=== PATIENT | female | born 1975 | race American Indian/Alaskan Native ===

== ENCOUNTER 2016-11-05 09:41 | Emergency (ER) | payer OTHER ==
[2016-11-05 09:43] VITALS: BMI 38.5
[2016-11-05 09:53] VITALS: TEMP 98.2; O2SAT 98
[2016-11-05 10:15] LABS: ADD MANUAL DIFF? NO
[2016-11-05 10:20] LABS: BASO # 0.02 K/mm3 (0.0-2.0); BASO % 0.5 % (0.0-3.0); EOS # 0.1 (0.0-0.7); EOS % 1.4 % (1.5-5.0); GRAN # 2.32 (1.4-6.5); GRAN % 55.6 % (50.0-68.0); HEMATOCRIT 32.4 % (36.0-48.0); LYMPH # 1.5 (1.2-3.4); LYMPH % 35.3 % (22.0-35.0); MEAN CELL VOLUME 86.2 fL (80.0-105.0); MEAN CORPUSCULAR HEMOGLOBIN 28.2 pg (25.0-35.0); MEAN CORPUSCULAR HGB CONC 32.7 g/dl (31.0-37.0); MEAN PLATELET VOLUME 8.6 fl (7.0-11.0); MONO # 0.3 (0.1-0.6); MONO % 7.2 % (1.0-6.0); PLATELET COUNT 327 10^3/uL (120.0-450.0); RED CELL DISTRIBUTION WIDTH 13.5 % (11.5-14.5); WHITE BLOOD COUNT 4.2 10^3/ul (4.5-11.0)
--- NOTE | 2016-11-05 10:23 | ED PDOC ---
Arrival/HPI - General Historian: Patient - History of Present Illness Time/Duration: 4-6 hours Symptom Course: Improving - General Chief Complaint: Chest Pain Time Seen by Provider: 11/05/16 09:43 - History of Present Illness Narrative History of Present Illness (Text): 11/05/16 10:04 41 year old female with past medical history hypertension, GERD, controlled diabetes presents to [facility] ED complaining of substernal chest pain. Patient reports the pain started this morning at 4AM while she was sleeping. The pain is sharp in quality, radiates to her back, worse with deep breaths. Patient took a dose of aspirin which alleviated her chest pain. Patient also complains of shortness of breath when she was having chest pain, but it has resolved since. 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 Patient had an echocardiogram in May 2016 which showed 51% EF and a nuclear stress test in June 2016 which was unremarkable. Patient is a current smoker. She smokes about 5 cigarettes a day. Denies headache, dizziness , fever, chills, abdominal pain, nausea, vomiting, diarrhea, or urinary symptoms. (Ragini Ortiz) Past Medical History - Provider Review Nursing Documentation Reviewed: Yes - Infectious Disease Hx of Infectious Diseases: None - Tetanus Immunization Tetanus Immunization: Unknown - Cardiac Hx Cardiac Disorders: Yes Hx Hypertension: Yes - Pulmonary Hx Respiratory Disorders: Yes (1/2 TO 3 CIG A DAY) Hx Asthma: Yes Hx Bronchitis: Yes Hx Sleep Apnea: Yes - Neurological Hx Neurological Disorder: No - HEENT Hx HEENT Disorder: No - Renal Hx Renal Disorder: No - Endocrine/Metabolic Hx Endocrine Disorders: Yes Hx Diabetes Mellitus Type 2: Yes (diet controlled) - Hematological/Oncological Hx Blood Disorders: Yes (H/O GI BLEED) Hx Anemia: Yes - Integumentary Hx Dermatological Disorder: No - Musculoskeletal/Rheumatological Hx Musculoskeletal Disorders: Yes (RADICULOPATHY) Hx Falls: No Hx Fractures: Yes (ORIF right wrist ) - Gastrointestinal Hx Gastrointestinal Disorders: Yes (gastritis, esophageal polyp, colon polyp, GI bleed) Hx Gastroesophageal Reflux: Yes Other/Comment: GASTRIC SLEEVE - Genitourinary/Gynecological Hx Genitourinary Disorders: Yes (C SECTION,TUBAL LIGATION) - Psychiatric Hx Psychophysiologic Disorder: No Hx Substance Use: No - Past Surgical History Past Surgical History: Non-Contributing - Surgical History Hx Gastric Bypass Surgery: Yes (gastric sleeve 2013) Hx Orthopedic Surgery: Yes (right wrist ORIF ) Other/Comment: Hiatal hernia Sx - Anesthesia Hx Anesthesia: Yes Hx Anesthesia Reactions: No Hx Malignant Hyperthermia: No - Suicidal Assessment Feels Threatened In Home Enviroment: No Family/Social History - Physician Review Nursing Documentation Reviewed: Yes Family/Social History: CAD/WA (father CHF, grandmother [place]) Smoking Status: Current Some Days Smoker Hx Alcohol Use: No Hx Substance Use: No Hx Substance Use Treatment: No Allergies/Home Meds Allergies/Adverse Reactions: Allergies morphine Allergy (Mild, Verified 09/30/16 16:58) RASH shellfish derived Allergy (Mild, Verified 09/30/16 16:58) RASH seafood Allergy (Severe, Uncoded 09/30/16 16:58) URTICARIA dust Allergy (Uncoded 09/30/16 16:58) ITCHING Home Medications: Home Meds Medication Instructions Recorded Confirmed Multivitamin [Multivitamins] 1 cap PO DAILY 09/16/15 11/05/16 Montelukast Sodium [Singulair] 10 mg PO DAILY 08/25/16 11/05/16 Omeprazole [Omeprazole] 40 mg PO DAILY 11/05/16 11/05/16 Review of Systems - Physician Review All systems were reviewed & negative as marked: Yes - Review of Systems Constitutional: Weight Change (intentional weight loss (exercise and diet)). absent: Fatigue, Fevers Eyes: Normal. absent: Vision Changes ENT: Normal. absent: Sore Throat, Rhinorrhea Respiratory: Normal Cardiovascular: Chest Pain. absent: Palpitations, Orthopnea, Syncope Gastrointestinal: Normal. absent: Abdominal Pain, Constipation, Diarrhea, Nausea, Vomiting Musculoskeletal: Normal. absent: Arthralgias, Joint Swelling Skin: Normal. absent: Rash, Pruritis Neurological: Normal. absent: Headache, Dizziness, Speech Changes Endocrine: Normal. absent: Diaphoresis, Polyuria, Polydipsia Hemo/Lymphatic: Normal. absent: Adenopathy, Easy Bleeding Psychiatric: Normal. absent: Anxiety, Depression Physical Exam Vital Signs Reviewed: Yes Temperature: Afebrile Blood Pressure: Normal Pulse: Regular Respiratory Rate: Normal Appearance: Positive for: Well-Appearing, Non-Toxic, Comfortable Pain Distress: Mild Mental Status: Positive for: Alert and Oriented X 3 - Systems Exam Head: Present: Atraumatic, Normocephalic Pupils: Present: PERRL Extroacular Muscles: Present: EOMI Conjunctiva: Present: Normal Mouth: Present: Moist Mucous Membranes Neck: Present: Normal Range of Motion. No: JVD Respiratory/Chest: Present: Clear to Auscultation, Good Air Exchange. No: Respiratory Distress, Accessory Muscle Use, Wheezes Cardiovascular: Present: Regular Rate and Rhythm, Normal S1, S2, Peripheal Pulses Present. No: Murmurs, Tachycardic Abdomen: Present: Normal Bowel Sounds. No: Tenderness, Distention, Peritoneal Signs Upper Extremity: Present: Normal Inspection, NORMAL PULSES, Neurovascularly Intact. No: Cyanosis, Edema, Tenderness Lower Extremity: Present: Normal Inspection, NORMAL PULSES, Neurovascularly Intact. No: Edema, Tenderness Neurological: Present: GCS=15, CN II-XII Intact, Speech Normal Skin: Present: Warm, Dry, Normal Color. No: Rashes Psychiatric: Present: Alert, Oriented x 3, Normal Insight, Normal Concentration Vital Signs Temp Pulse Resp BP Pulse Ox 11/05/16 12:31 61 16 126/85 98 11/05/16 09:52 98.2 F 84 18 139/77 98 11/05/16 09:41 98.2 F 85 16 139/77 20 L Medical Decision Making ED Course and Treatment: Patient Seen With Resident: In agreement with resident note. Patient was seen and evaluated with resident, came up with plan and treatment together. Patient with recent admission last month with cardiology consultation. Chest pain is currently atypical for myocardial infarction. EKG, D-dimer, and Troponin unremarkable. With patient's recent stress test and echocardiogram being unremarkable and combination of atypical history, patient will be discharged with instructions to follow up with PMD. (Joseph Torres) 11/05/16 10:33 -CBC, CMP -EKG -Cardiac ISO -D-Dimer -ASA -CXR DDx: ACS, costochondritis, GERD 41 year old female complains of chest pain. Patient was admitted in September 2016 for similar complaints. All cardiac workups including echocardiogram and nuclear stress test were unremarkable. Patient has ADAMARIS score 2 and HEART score 2. 11/05/16 11:37 Progress note: Patient's chest pain is improving. Troponin and other blood works returned negative. EKG showed no ischemic changes. CXR negative for active diseases. (Ragini Ortiz) - Lab Interpretations Lab Results: 11/05/16 10:15 11/05/16 10:15 Lab Results 11/05/16 10:30: Urine Color Yellow, Urine Appearance Sl cloudy, Urine pH 6.0, Ur Specific [place] >= 1.030, Urine Protein 30 H, Urine Glucose (UA) Negative, Urine Ketones Negative, Urine Blood Large H, Urine Nitrate Negative, Urine Bilirubin Negative, Urine Urobilinogen 1.0 H, Ur Leukocyte Esterase Trace H, Urine RBC 15 - 20, Urine WBC 0 - 2, Ur Epithelial Cells 1 - 3, Urine Bacteria Trace 11/05/16 10:15: WBC 4.2 L, RBC 3.76, Hgb 10.6 L, Hct 32.4 L, MCV 86.2, MCH 28.2 , MCHC 32.7, RDW 13.5, Plt Count 327, MPV 8.6, Gran % 55.6, Lymph % (Auto) 35.3 H, [place] % (Auto) 7.2 H, Eos % (Auto) 1.4 L, Baso % (Auto) 0.5, Gran # 2.32, Lymph # 1.5, [place] # 0.3, Eos # 0.1, Baso # 0.02, D-Dimer, Quantitative 0.24, Sodium 141, Potassium 3.9, Chloride 107, Carbon Dioxide 26, Anion Gap 12, BUN 9 , Creatinine 0.8, Est GFR ( Amer) > 60, Est GFR (Non-Af Amer) > 60, Random Glucose 104, Calcium 8.6, Magnesium 1.9, Total Bilirubin 0.5, AST 15, ALT 29, Alkaline Phosphatase 59, Lactate Dehydrogenase 410, Total Creatine Kinase 119, Troponin I < 0.01, Total Protein 6.8, Albumin 3.7, Globulin 3.2, Albumin/Globulin Ratio 1.2 - RAD Interpretation Radiology Orders: 11/05/16 09:59 CHEST PORTABLE [RAD] Stat - EKG Interpretation EKG Interpretation (Text): 11/05/16 11:38 NSR at 88bpm, no axis deviation, no acute ST changes. Read by me. (Ragini Ortiz) - Medication Orders Current Medication Orders: Discontinued Medications Aspirin (Aspirin Chewable) 162 mg PO STAT STA Stop: 11/05/16 09:59 Last Admin: 11/05/16 10:14 Dose: 162 MG Disposition/Present on Arrival - Present on Arrival Any Indicators Present on Arrival: No History of DVT/PE: No History of Uncontrolled Diabetes: No Urinary Catheter: No History of Decub. Ulcer: No History Surgical Site Infection Following: None - Disposition Have Diagnosis and Disposition been Completed?: Yes Disposition Time: 12:34 Patient Plan: Discharge - Disposition Diagnosis: Chest pain Disposition: HOME/ ROUTINE Patient Problems: Current Active Problems Problem Status Diagnosed Chest pain Acute Condition: STABLE Discharge Instructions (ExitCare): Chest Pain (ED) Prescriptions: Naproxen [Anaprox] 275 mg PO Q6 PRN #20 tab PRN Reason: Pain, Moderate (4-7) Referrals: Nick Jones MD [Primary Care Provider] - Follow up with primary Forms: WORK NOTE
[2016-11-05 10:29] LABS: ALB/GLOB RATIO 1.2 (1.1-1.8); ALKALINE PHOSPHATASE 59 U/L (38-133); ALT/SGPT 29 U/L (7-56); AST/SGOT 15 U/L (15-39); BILIRUBIN,TOTAL 0.5 mg/dL (0.2-1.3); BLOOD UREA NITROGEN 9 mg/dL (7-21); CALCIUM 8.6 mg/dL (8.4-10.5); CARBON DIOXIDE 26 mmol/L (21-33); CHLORIDE 107 mmol/L (98-107); GFR AFRICAN-AMERICAN > 60; GLUCOSE,RANDOM 104 mg/dL (70-110); MAGNESIUM 1.9 mg/dL (1.7-2.2); POTASSIUM 3.9 mmol/L (3.6-5.0); SODIUM 141 mmol/L (132-148); TOTAL PROTEIN 6.8 g/dL (5.8-8.3)
[2016-11-05 10:39] LABS: URINE BILIRUBIN NEGATIVE (NEGATIVE); URINE BLOOD LARGE (NEGATIVE); URINE GLUCOSE (UA) NEGATIVE (NEGATIVE); URINE KETONE NEGATIVE (NEGATIVE); URINE LEUKOCYTE ESTERASE TRACE Leu/uL (NEGATIVE); URINE PROTEIN 30 mg/dL (<30 mg/dL)
[2016-11-05 10:40] LABS: URINE APPEARANCE SL CLOUDY (CLEAR); URINE COLOR YELLOW (YELLOW)
[2016-11-05 10:41] LABS: URINE BACTERIA TRACE (NEG); URINE RBC 15 - 20 /hpf (0-2); URINE WBC 0 - 2 /hpf (0-6)
[2016-11-05 10:42] LABS: TROPONIN I < 0.01 ng/mL
--- NOTE | 2016-11-05 11:22 | RAD ---
HISTORY: chest pain COMPARISON: 09/30/2016 FINDINGS: LUNGS: No active pulmonary disease. PLEURA: No significant pleural effusion identified, no pneumothorax apparent. CARDIOVASCULAR: Normal. OSSEOUS STRUCTURES: No significant abnormalities. VISUALIZED UPPER ABDOMEN: Normal. OTHER FINDINGS: None. IMPRESSION: No active disease. No interval pathology noted
[2016-11-05 12:31] VITALS: BP 126/85; PULSE 61; RESP 16
--- NOTE | 2016-11-05 17:56 | CARD ---
APPROVED REPORT EKG Measurement Heart [id number] <Conclusion> Normal sinus rhythm Normal ECG
== END 2016-11-05 12:49 | disposition home or self-care (01) ==
LOC: ED 09:41
DX: R07.9 Chest pain, unspecified (principal); I10 Essential (primary) hypertension; E11.9 Type 2 diabetes mellitus without complications

== ENCOUNTER 2017-03-29 06:45 | Emergency (ER) | payer OTHER ==
[2017-03-29 06:46] VITALS: BMI 38.5
[2017-03-29 07:29] LABS: BASO # 0.02 K/mm3 (0.0-2.0); BASO % 0.4 % (0.0-3.0); EOS # 0.1 (0.0-0.7); GRAN # 3.11 (1.4-6.5); GRAN % 60.1 % (50.0-68.0); HEMATOCRIT 29.3 % (36.0-48.0); LYMPH # 1.7 (1.2-3.4); LYMPH % 32.9 % (22.0-35.0); MEAN CELL VOLUME 75.1 fl (80.0-105.0); MEAN CORPUSCULAR HEMOGLOBIN 22.8 pg (25.0-35.0); MEAN CORPUSCULAR HGB CONC 30.4 g/dl (31.0-37.0); MEAN PLATELET VOLUME 8.4 fl (7.0-11.0); MONO # 0.3 (0.1-0.6); MONO % 5.6 % (1.0-6.0); RED CELL DISTRIBUTION WIDTH 16.4 % (11.5-14.5); WHITE BLOOD COUNT 5.2 10^3/ul (4.5-11.0)
--- NOTE | 2017-03-29 07:30 | ED PDOC ---
Arrival/HPI - General Historian: Patient EM Caveat: Acuity of Condition - History of Present Illness Time/Duration: Prior to Arrival Symptom Onset: Sudden Symptom Course: Unchanged Quality: Pressure, Tightness Severity Level: 8 Activities at Onset: Sleeping Context: Home - General Chief Complaint: Chest Pain Time Seen by Provider: 03/29/17 06:58 - History of Present Illness Narrative History of Present Illness (Text): Patient is a 41 year old female with a past medical history of GERD, Hiatal hernia, diet controlled DM, Hypertension who [place] [facility] [place] with complaints of bilateral chest wall and sternal pain. Patient states she was sleeping and was woken up by an 8/10 chest pain which started at 4 am this morning on the left side and radiated to her back on the right side; pain still persists. She states the pain is exacerbated when she coughs and has not taken anything to relieve the pain. She also admits to a cough being associated with a bitter taste in her mouth. As per patient, this pain occurs regularly. Patient states she had seen a fire hydrant mechanic Dr. Bruno who wanted to work her up for Takotsubo cardiomyopathy but she has not followed through with the appropriate testing for that yet. Patient states she takes her omeprazole regularly, takes her BP medications as needed, and does not take Aspirin regularly. Patient states she underwent a hiatal hernia repair but, in the past year it has returned, which is around the time of the start of her sternal and chest wall pain symptoms. Denies n/v/d, dizziness, weakness, headache. 03/29/17 07:31 (Harris Epstein) Past Medical History - Provider Review Nursing Documentation Reviewed: Yes - Infectious Disease Hx of Infectious Diseases: None - Tetanus Immunization Tetanus Immunization: Unknown - Cardiac Hx Cardiac Disorders: Yes Hx Hypertension: Yes - Pulmonary Hx Respiratory Disorders: Yes (1/2 TO 3 CIG A DAY) Hx Asthma: Yes Hx Bronchitis: Yes Hx Sleep Apnea: Yes - Neurological Hx Neurological Disorder: No - HEENT Hx HEENT Disorder: No - Renal Hx Renal Disorder: No - Endocrine/Metabolic Hx Endocrine Disorders: Yes Hx Diabetes Mellitus Type 2: Yes (diet controlled) - Hematological/Oncological Hx Blood Disorders: Yes (H/O GI BLEED) Hx Anemia: Yes - Integumentary Hx Dermatological Disorder: No - Musculoskeletal/Rheumatological Hx Musculoskeletal Disorders: Yes (RADICULOPATHY) Hx Falls: No Hx Fractures: Yes (ORIF right wrist ) - Gastrointestinal Hx Gastrointestinal Disorders: Yes (gastritis, esophageal polyp, colon polyp, GI bleed) Hx Gastroesophageal Reflux: Yes Other/Comment: GASTRIC SLEEVE - Genitourinary/Gynecological Hx Genitourinary Disorders: Yes (C SECTION,TUBAL LIGATION) - Psychiatric Hx Psychophysiologic Disorder: No Hx Substance Use: No - Past Surgical History Past Surgical History: Non-Contributing - Surgical History Hx Gastric Bypass Surgery: Yes (gastric sleeve 2013) Hx Orthopedic Surgery: Yes (right wrist ORIF ) Other/Comment: Hiatal hernia Sx - Anesthesia Hx Anesthesia: Yes Hx Anesthesia Reactions: No Hx Malignant Hyperthermia: No - Suicidal Assessment Feels Threatened In Home Enviroment: No Family/Social History - Physician Review Nursing Documentation Reviewed: Yes Family/Social History: Neoplasm/Cancer Smoking Status: Current Some Days Smoker Hx Alcohol Use: No Hx Substance Use: No Hx Substance Use Treatment: No Allergies/Home Meds Allergies/Adverse Reactions: Allergies morphine Allergy (Mild, Verified 09/30/16 16:58) RASH shellfish derived Allergy (Mild, Verified 09/30/16 16:58) RASH seafood Allergy (Severe, Uncoded 09/30/16 16:58) URTICARIA dust Allergy (Uncoded 09/30/16 16:58) ITCHING Home Medications: Home Meds Medication Instructions Recorded Confirmed Multivitamin [Multivitamins] 1 cap PO DAILY 09/16/15 03/29/17 Montelukast Sodium [Singulair] 10 mg PO DAILY 08/25/16 03/29/17 Omeprazole [Omeprazole] 40 mg PO DAILY 11/05/16 03/29/17 Review of Systems - Physician Review All systems were reviewed & negative as marked: Yes - Review of Systems Systems not reviewed;Unavailable: Acuity of Condition Constitutional: Fatigue. absent: Fevers Respiratory: SOB, Cough Cardiovascular: Chest Pain. absent: Palpitations Gastrointestinal: absent: Abdominal Pain, Nausea, Vomiting Skin: absent: Rash, Pruritis Neurological: Headache, Focal Weakness Endocrine: Normal Hemo/Lymphatic: Normal Psychiatric: Depression Physical Exam Vital Signs Reviewed: Yes Temperature: Afebrile Blood Pressure: Normal Pulse: Regular Respiratory Rate: Normal Appearance: Positive for: Well-Appearing, Non-Toxic Pain Distress: None Mental Status: Positive for: Alert and Oriented X 3 - Systems Exam Head: Present: Atraumatic, Normocephalic Extroacular Muscles: Present: EOMI Conjunctiva: Present: Normal Mouth: Present: Moist Mucous Membranes Respiratory/Chest: Present: Clear to Auscultation, Good Air Exchange, Other ( tenderness upon palpation of sternal region, and B/L chest wall ) Cardiovascular: Present: Regular Rate and Rhythm, Murmurs, Normal S1, S2 Abdomen: Present: Tenderness (B/L upper epigastric tenderness). No: Distention , Normal Bowel Sounds Neurological: Present: CN II-XII Intact Skin: Present: Warm, Normal Color Psychiatric: Present: Alert, Oriented x 3 Medical Decision Making Re-evaluation Time: 09:00 (Patient at re-evaluation states she is feeling better , the pain has improved s/p administration of maalox and protonix. Physical exam reveals decrease tenderness upon palpation of sternal region, chest wall, and ) Reassessment Condition: Re-examined - Lab Interpretations I have reviewed the lab results: Yes Interpretation: Abnormal lab values - RAD Interpretation Time Study Analyst: Radiologist - EKG Interpretation Interpreted by ED Physician: Yes Type: 12 lead EKG ED Course and Treatment: Assessment ACS vs. GERD - 41 year old female presenting with atypical chest pain which radiates to the right side of her back - HEART score of 2 - ADAMARIS score 0 Plan - EKG - CXR - Cardiac enzymes - CBC, CMP - D-Dimer - Lipase - Protonix, Maalox - Patients symptoms improved after Maalox and Protonix; discussed with patient to take her omeprazole regularly, prescribed Maalox, and follow up with her Resp Ther for f/u of hiatal hernia. 03/29/17 07:50 (Harris Epstein) 03/29/17 10:03 A 41 year old female presents complaining of chest pain and abdominal pain. In agreement with resident note, which includes further HPI details, except that after physical exam with tenderness to epigastric she points out that yes it's more from the epigastric area and radiates to chest. Patient was seen and evaluated with resident, came up with plan and treatment together. EKG shows NSR at 72 BPM Interpreted by me. Abdominal exam shows epigastric tenderness with mild guarding. No rebound. Treated with Protonix and Maalox. On reevaluation, patient felt much better with her symptoms improved. She will follow up with her primary care doctor and a GI specialist. (Augusto Petit) - Lab Interpretations Lab Results: 03/29/17 07:25 03/29/17 07:25 Lab Results 03/29/17 08:50: D-Dimer, Quantitative < 200 H 03/29/17 08:50: Lipase 86 03/29/17 07:38: PT 11.5, INR 1.06, APTT 28.8 03/29/17 07:25: WBC 5.2 D, RBC 3.90, Hgb 8.9 L, Hct 29.3 L, MCV 75.1 L, MCH 22.8 L, MCHC 30.4 L, RDW 16.4 H, Plt Count 297, MPV 8.4, Gran % 60.1, Lymph % ( Auto) 32.9, [place] % (Auto) 5.6, Eos % (Auto) 1.0 L, Baso % (Auto) 0.4, Gran # 3.11, Lymph # 1.7, [place] # 0.3, Eos # 0.1, Baso # 0.02 03/29/17 07:25: Sodium 140, Potassium 3.9, Chloride 107, Carbon Dioxide 23, Anion Gap 14, BUN 7, Creatinine 0.6, Est GFR ( Amer) > 60, Est GFR (Non- Af Amer) > 60, Random Glucose 126 H, Calcium 8.8, Total Bilirubin 0.4, AST 16, ALT 26, Alkaline Phosphatase 61, Lactate Dehydrogenase 440, Total Creatine Kinase 160, Troponin I < 0.01, Total Protein 6.9, Albumin 3.9, Globulin 3.1, Albumin/Globulin Ratio 1.3 - RAD Interpretation Radiology Orders: 03/29/17 07:21 CXR [CHEST PORTABLE] [RAD] Stat - Medication Orders Current Medication Orders: Discontinued Medications Al Hydrox/Mg Hydrox/Simethicone (Maalox Plus 30 Ml) 30 ml PO DAILY PRN PRN Reason: Indigestion / Heartburn Last Admin: 03/29/17 08:03 Dose: 30 ml Aspirin (Aspirin) 325 mg PO STAT STA Stop: 03/29/17 07:31 Last Admin: 03/29/17 07:34 Dose: 325 mg Aspirin (Aspirin) Confirm Administered Dose 325 mg .ROUTE .STK-MED ONE Stop: 03/29/17 07:35 Last Admin: 03/29/17 07:56 Dose: Pantoprazole Sodium (Protonix Inj) 80 mg IVP STAT STA Stop: 03/29/17 07:48 Last Admin: 03/29/17 08:02 Dose: 80 mg Disposition/Present on Arrival - Present on Arrival Any Indicators Present on Arrival: No History of DVT/PE: No History of Uncontrolled Diabetes: No Urinary Catheter: No History of Decub. Ulcer: No History Surgical Site Infection Following: None - Disposition Have Diagnosis and Disposition been Completed?: Yes Disposition Time: :23 Patient Plan: Discharge - Disposition Diagnosis: Gastroesophageal reflux disease Disposition: HOME/ ROUTINE Condition: IMPROVED Discharge Instructions (ExitCare): Gastroesophageal Reflux Disease (ED) Additional Instructions: Mrs. Guerrero thank you for letting us take care of you today. You were treated for gastroesophageal reflux disease. The emergency medical care you received today was directed at your acute symptoms. If you were prescribed any medication , please fill it and take as directed. It may take several days for your symptoms to resolve. Return to the Emergency Department if your symptoms worsen , do not improve, or if you have any other problems. Please contact your doctor or call one of the physicians/clinics you have been referred to that are listed on the Patient Visit Information form that is included in your discharge packet. Bring any paperwork you were given at discharge with you along with any medications you are taking to your follow up visit. Our treatment cannot replace ongoing medical care by a primary care provider (PCP) outside of the emergency department. Dr. Kenia Todd [address] [place] [address] [address] [place] [address] Prescriptions: Aluminum Hydroxide/Magnesium [Maalox Plus 30 ml] 30 ml PO DAILY #30 [facility] [place] Referrals: Nick Jones MD [Primary Care Provider] - Follow up with primary Kenia Todd MD [Medical Doctor] - Follow up with primary Forms: [place] (Uzbek)
[2017-03-29 07:43] LABS: ALB/GLOB RATIO 1.3 (1.1-1.8); ALKALINE PHOSPHATASE 61 U/L (38-126); ALT/SGPT 26 U/L (7-56); AST/SGOT 16 U/L (14-36); BILIRUBIN,TOTAL 0.4 mg/dL (0.2-1.3); BLOOD UREA NITROGEN 7 mg/dL (7-21); CALCIUM 8.8 mg/dL (8.4-10.5); CARBON DIOXIDE 23 mmol/L (21-33); CHLORIDE 107 mmol/L (98-107); GFR AFRICAN-AMERICAN > 60; GLUCOSE,RANDOM 126 mg/dL (70-110); POTASSIUM 3.9 mmol/L (3.6-5.0); SODIUM 140 mmol/L (132-148); TOTAL PROTEIN 6.9 g/dL (5.8-8.3)
[2017-03-29 07:51] LABS: INR 1.06 (0.93-1.08); PARTIAL THROMBOPLASTIN TIME 28.8 Seconds (23.7-30.8)
[2017-03-29] MEDS ORDERED: Alum-Mag Hydrox-Simethicone Susp (30 mL) PO PRN (07:55)
[2017-03-29 08:00] LABS: TROPONIN I < 0.01 ng/mL
--- NOTE | 2017-03-29 09:03 | RAD ---
HISTORY: chest pain COMPARISON: 11/05/2016 FINDINGS: LUNGS: No active pulmonary disease. PLEURA: No significant pleural effusion identified, no pneumothorax apparent. CARDIOVASCULAR: Normal. OSSEOUS STRUCTURES: No significant abnormalities. VISUALIZED UPPER ABDOMEN: Normal. OTHER FINDINGS: None. IMPRESSION: No active disease.
[2017-03-29 09:14] VITALS: TEMP 98
[2017-03-29 09:40] VITALS: BP 121/75; PULSE 75; RESP 20; O2SAT 99
--- NOTE | 2017-03-29 18:11 | CARD ---
APPROVED REPORT EKG Measurement Heart [id number] <Conclusion> Unusual P axis, possible ectopic atrial rhythm Abnormal ECG
== END 2017-03-29 10:22 | disposition home or self-care (01) ==
LOC: ED 06:45
DX: K21.9 Gastro-esophageal reflux disease without esophagitis (principal); I10 Essential (primary) hypertension; E11.9 Type 2 diabetes mellitus without complications; F17.210 Nicotine dependence, cigarettes, uncomplicated
CPT/HCPCS: 71010; 80053; 82550; 83615; 83690; 84484; 85025; 85378; 85610; 85730; 93005; 96374; 99285; C9113

== ENCOUNTER 2017-04-08 00:13 | Observation (INO) | payer OTHER ==
[2017-04-08 00:14] VITALS: BMI 38.5
--- NOTE | 2017-04-08 01:21 | ED PDOC ---
Arrival/HPI <Ananth Hollingsworth - Last Filed: 04/08/17 04:59> <Terry Crockett - Last Filed: 04/08/17 05:05> - General Chief Complaint: Respiratory Distress Time Seen by Provider: 04/08/17 00:23 - History of Present Illness Narrative History of Present Illness (Text): 04/08/17 01:00 41 F presents with complaints of sob of 2 hours duration. Patient states that she is having difficulty taking a deep breath. Pt was recently admitted for anemia on 03/29/17, when her Hb was 8.9. Pt denies any other symptoms including a cough, f/ch, and cp. Pt further denies dizziness and braden. Pt states that the only other time she has felt like this was 2 years ago when she was diagnosed with vertigo. Pt denies wheezing, denies any URI symptoms, and denies any sick contacts. Pt denies n/v/d and any other symptoms. Denies history of asthma, copd, lung ca. Admits to smoking 4-5 cigarettes daily. (Terry Crockett) Past Medical History - Provider Review Nursing Documentation Reviewed: Yes - Infectious Disease Hx of Infectious Diseases: None - Tetanus Immunization Tetanus Immunization: Unknown - Reproductive Menopause: No - Cardiac Hx Cardiac Disorders: Yes Hx Hypertension: Yes - Pulmonary Hx Respiratory Disorders: Yes (1/2 TO 3 CIG A DAY) Hx Asthma: Yes Hx Bronchitis: Yes Hx Sleep Apnea: Yes - Neurological Hx Neurological Disorder: No - HEENT Hx HEENT Disorder: No - Renal Hx Renal Disorder: No - Endocrine/Metabolic Hx Endocrine Disorders: Yes Hx Diabetes Mellitus Type 2: Yes (diet controlled) - Hematological/Oncological Hx Blood Disorders: Yes (H/O GI BLEED) Hx Anemia: Yes - Integumentary Hx Dermatological Disorder: No - Musculoskeletal/Rheumatological Hx Musculoskeletal Disorders: Yes (RADICULOPATHY) Hx Falls: No Hx Fractures: Yes (ORIF right wrist ) - Gastrointestinal Hx Gastrointestinal Disorders: Yes (gastritis, esophageal polyp, colon polyp, GI bleed) Hx Gastroesophageal Reflux: Yes Other/Comment: GASTRIC SLEEVE - Genitourinary/Gynecological Hx Genitourinary Disorders: Yes (C SECTION,TUBAL LIGATION) - Psychiatric Hx Psychophysiologic Disorder: No Hx Substance Use: No - Past Surgical History Past Surgical History: Non-Contributing - Surgical History Hx Gastric Bypass Surgery: Yes (gastric sleeve 2013) Hx Orthopedic Surgery: Yes (right wrist ORIF ) Other/Comment: Hiatal hernia Sx - Anesthesia Hx Anesthesia: Yes Hx Anesthesia Reactions: No Hx Malignant Hyperthermia: No - Suicidal Assessment Feels Threatened In Home Enviroment: No <Terry Crockett - Last Filed: 04/08/17 05:05> Family/Social History - Physician Review Nursing Documentation Reviewed: Yes Family/Social History: No Known Family HX Smoking Status: Current Some Days Smoker Hx Alcohol Use: No Hx Substance Use: No Hx Substance Use Treatment: No <Terry Crockett - Last Filed: 04/08/17 05:05> Allergies/Home Meds <Ananth Hollingsworth - Last Filed: 04/08/17 04:59> <Terry Crockett - Last Filed: 04/08/17 05:05> Allergies/Adverse Reactions: Allergies morphine Allergy (Mild, Verified 09/30/16 16:58) RASH shellfish derived Allergy (Mild, Verified 09/30/16 16:58) RASH seafood Allergy (Severe, Uncoded 09/30/16 16:58) URTICARIA dust Allergy (Uncoded 09/30/16 16:58) ITCHING Home Medications: Home Meds Medication Instructions Recorded Confirmed Multivitamin [Multivitamins] 1 cap PO DAILY 09/16/15 03/29/17 Montelukast Sodium [Singulair] 10 mg PO DAILY 08/25/16 03/29/17 Omeprazole [Omeprazole] 40 mg PO DAILY 11/05/16 03/29/17 Review of Systems - Physician Review All systems were reviewed & negative as marked: Yes - Review of Systems Constitutional: Normal. absent: Fatigue, Weight Change, Fevers Eyes: Normal. absent: Vision Changes, Photophobia, Eye Pain ENT: Normal. absent: Hearing Changes, Tinnitus, TMJ Pain Respiratory: SOB (see hpi) Cardiovascular: Normal. absent: Chest Pain, Palpitations, Edema Gastrointestinal: Normal. absent: Abdominal Pain, Constipation, Diarrhea, Nausea, Vomiting Genitourinary Female: Normal. absent: Dysuria, Frequency Musculoskeletal: Normal. absent: Arthralgias, Back Pain, Neck Pain Skin: Normal. absent: Rash, Pruritis, Skin Lesions Neurological: Normal. absent: Headache, Dizziness, Focal Weakness Endocrine: Normal. absent: Diaphoresis, Polyuria, Polydipsia Hemo/Lymphatic: Normal. absent: Adenopathy, Easy Bleeding, Easy Bruising Psychiatric: Normal. absent: Anxiety, Depression, Suicidal Ideation <Terry Crockett - Last Filed: 04/08/17 05:05> Physical Exam Vital Signs Reviewed: Yes Temperature: Afebrile Blood Pressure: Normal Pulse: Regular Respiratory Rate: Normal Appearance: Positive for: Well-Appearing, Non-Toxic, Comfortable Pain Distress: None Mental Status: Positive for: Alert and Oriented X 3 - Systems Exam Head: Present: Atraumatic, Normocephalic. No: Tenderness, Contusion, Swelling Pupils: Present: PERRL. No: Sluggish, Non-Reactive, Pinpoint Extroacular Muscles: Present: EOMI. No: Gaze Palsy, Entrapment Conjunctiva: Present: Normal. No: Injected, Icteric Ears: Present: Normal, NORMAL TM, Normal Canal. No: Erythema, TM Bulging Mouth: Present: Moist Mucous Membranes. No: Dry, Drooling, Trismus Pharnyx: Present: Normal. No: ERYTHEMA, EXUDATE, TONSILS ENLARGED Nose (External): Present: Atraumatic. No: Abrasion, Contusion, Laceration Nose (Internal): Present: Normal Inspection. No: Engorged, Edematous, Boggy Neck: Present: Normal Range of Motion. No: Meningeal Signs, MIDLINE TENDERNESS , Paraspinal Tenderness Respiratory/Chest: Present: Clear to Auscultation, Good Air Exchange. No: Respiratory Distress, Accessory Muscle Use, Wheezes, Decreased Breath Sounds, Rales, Retracting, Rhonchi, Tachypneic Cardiovascular: Present: Regular Rate and Rhythm, Normal S1, S2. No: Murmurs, Tachycardic, Rub Abdomen: Present: Normal Bowel Sounds. No: Tenderness, Distention, Peritoneal Signs, Rebound, McBurney's Point Tender Rectal: Present: Gross Blood, Normal Rectal Tone. No: Rectal Tenderness, Fissures, Nodule/Mass/Lesions Back: Present: Normal Inspection. No: CVA Tenderness, Midline Tenderness, Paraspinal Tenderness Upper Extremity: Present: Normal Inspection, Normal ROM, NORMAL PULSES. No: Cyanosis, Edema, Tenderness Lower Extremity: Present: Normal Inspection, NORMAL PULSES, Normal ROM. No: Edema, CALF TENDERNESS, Cyanosis Neurological: Present: GCS=15, CN II-XII Intact, Speech Normal, Motor Func Grossly Intact, Normal Sensory Function, Normal Cerebellar Funct, Norm Deep Tendon Reflexes Skin: Present: Warm, Dry, Normal Color. No: Rashes Psychiatric: Present: Alert, Oriented x 3, Normal Insight, Normal Concentration , Normal Affect, Normal Mood. No: Agitated, Depressed Mood, Suicidal Ideation, Homicidal Ideation <Terry Crockett - Last Filed: 04/08/17 05:05> Vital Signs Temp Pulse Resp BP Pulse Ox 04/08/17 04:38 60 18 100 04/08/17 00:23 93 H 20 144/84 100 04/08/17 00:15 99.2 F 86 20 142/84 100 Medical Decision Making <Ananth Hollingsworth - Last Filed: 04/08/17 04:59> <Terry Crockett - Last Filed: 04/08/17 05:05> ED Course and Treatment: Impression: Pt seen and evaluated with biomedical service engineer. Pt, whose past medical history includes hypertension, diabetes, GERD, gastric sleeve, and hiatal hernia, presented complaining of shortness of breath. Aware and agree with HPI, clinical findings, plan, and management. Plan: -- EKG -- Chest X-ray -- Labs, blood cultures -- Urinalysis, urine cultures -- Reassess and disposition 04/08/17 04:[address] Steven, biomedical service engineer chief telephone operator, made aware of admission. (Ananth Hollingsworth) Assessed 04/08/17 01:23 Impression: 41 F with subjective sob Plan - CXR, Tropes, EKG - CMP, CBC, Blood Cx - UA, U Cx - Reassess Reassessed 04/08/17 03:00 - CXR negative for acute disease; EKG shows NSR - CMP, CBC show anemia and leukopenia - UA shows - Tropes negative Reassessed 04/08/17 04:52 - FOBT Positive for brb - Case d/w Dr. Tse, accepts admission to hospitalist service - Case d/w Dr. Dent, biomedical service engineer (Terry Crockett) - Lab Interpretations Lab Results: 04/08/17 03:00 04/08/17 03:00 Lab Results 04/08/17 03:00: Sodium 139, Potassium 3.5 L, Chloride 106, Carbon Dioxide 25, Anion Gap 12, BUN 8, Creatinine 0.6, Est GFR ( Amer) > 60, Est GFR (Non- Af Amer) > 60, Random Glucose 99, Calcium 8.6, Total Bilirubin 0.2, AST 23, ALT 21, Alkaline Phosphatase 63, Total Protein 6.5, Albumin 3.7, Globulin 2.9, Albumin/Globulin Ratio 1.3 04/08/17 03:00: WBC 4.1 L D, RBC 3.59, Hgb 8.3 L, Hct 27.0 L, MCV 75.2 L, MCH 23.1 L, MCHC 30.7 L, RDW 17.0 H, Plt Count 348, MPV 8.5, Gran % 48.4 L, Lymph % (Auto) 44.2 H, Crenshaw % (Auto) 5.3, Eos % (Auto) 1.9, Baso % (Auto) 0.2, Gran # 1.99, Lymph # 1.8, Crenshaw # 0.2, Eos # 0.1, Baso # 0.01 04/08/17 00:26: POC Glucose (mg/dL) 123 H - RAD Interpretation Radiology Orders: 04/08/17 00:58 CHEST PORTABLE [RAD] Stat - Medication Orders Current Medication Orders: Potassium Chloride (Potassium Chloride 20 Meq/100 Ml) 20 meq in 100 mls @ 50 mls/hr IVPB ONCE ONE Stop: 04/08/17 05:47 - PA / BULK MAIL CLERK / Resident Statement PEYTON has reviewed & agrees with the documentation as recorded. PEYTON has examined the patient and agrees with the treatment plan. <Ananth Hollingsworth - Last Filed: 04/08/17 04:59> Disposition/Present on Arrival <Ananth Hollingsworth - Last Filed: 04/08/17 04:59> - Present on Arrival Any Indicators Present on Arrival: No History of DVT/PE: No History of Uncontrolled Diabetes: No Urinary Catheter: No History of Decub. Ulcer: No History Surgical Site Infection Following: None - Disposition Have Diagnosis and Disposition been Completed?: Yes Disposition Time: 04:46 Patient Plan: Admission <Terry Crockett - Last Filed: 04/08/17 05:05> - Disposition Diagnosis: Shortness of breath, Anemia Disposition: HOSPITALIZED Patient Problems: Current Active Problems Problem Status Onset Shortness of breath Acute Anemia Chronic Condition: FAIR Referrals: Trevor Jones MD [Primary Care Provider] - Follow up with primary Forms: Powerset (Bengali)
[2017-04-08 03:13] LABS: BASO # 0.01 K/mm3 (0.0-2.0); BASO % 0.2 % (0.0-3.0); EOS # 0.1 (0.0-0.7); EOS % 1.9 % (1.5-5.0); GRAN # 1.99 (1.4-6.5); GRAN % 48.4 % (50.0-68.0); LYMPH # 1.8 (1.2-3.4); LYMPH % 44.2 % (22.0-35.0); MEAN CELL VOLUME 75.2 fl (80.0-105.0); MEAN CORPUSCULAR HEMOGLOBIN 23.1 pg (25.0-35.0); MEAN CORPUSCULAR HGB CONC 30.7 g/dl (31.0-37.0); MEAN PLATELET VOLUME 8.5 fl (7.0-11.0); MONO # 0.2 (0.1-0.6); MONO % 5.3 % (1.0-6.0); WHITE BLOOD COUNT 4.1 10^3/ul (4.5-11.0)
[2017-04-08 03:19] LABS: ALB/GLOB RATIO 1.3 (1.1-1.8); ALKALINE PHOSPHATASE 63 U/L (38-126); ALT/SGPT 21 U/L (7-56); AST/SGOT 23 U/L (14-36); BILIRUBIN,TOTAL 0.2 mg/dL (0.2-1.3); BLOOD UREA NITROGEN 8 mg/dL (7-21); CALCIUM 8.6 mg/dL (8.4-10.5); CARBON DIOXIDE 25 mmol/L (21-33); CHLORIDE 106 mmol/L (98-107); GFR AFRICAN-AMERICAN > 60; GLUCOSE,RANDOM 99 mg/dL (70-110); POTASSIUM 3.5 mmol/L (3.6-5.0); SODIUM 139 mmol/L (132-148); TOTAL PROTEIN 6.5 g/dL (5.8-8.3)
[2017-04-08 05:40] LABS: PH,URINE 6.5 (4.7-8.0); URINE BILIRUBIN NEGATIVE (NEGATIVE); URINE BLOOD LARGE (NEGATIVE); URINE GLUCOSE (UA) NEGATIVE (NEGATIVE); URINE KETONE NEGATIVE (NEGATIVE); URINE LEUKOCYTE ESTERASE SMALL Leu/uL (NEGATIVE); URINE PROTEIN 30 mg/dL (<30 mg/dL)
[2017-04-08 05:46] LABS: URINE APPEARANCE SL CLOUDY (CLEAR); URINE COLOR YELLOW (YELLOW)
[2017-04-08 06:00] LABS: URINE BACTERIA OCC (NEG); URINE EPITHELIAL CELLS 0 - 2 /hpf (0-5); URINE RBC TNTC /hpf (0-2)
--- NOTE | 2017-04-08 06:05 | CP.PCM.HP ---
<DentIsaakNicola - Last Filed: 04/08/17 06:38> History of Present Illness - History of Present Illness History of Present Illness: 41 yo AA female with PMH of HTN, Diabetes, Gastritis, and asthma presents with 1 day duration of SOB which began at 9pm while the patient was driving her car. She said she felt pressure on her chest, faced tightened up and had difficulty breathing so she opened up the windows to get more air. She states the pressure radiated to her left arm and there was numbness and tingling in her left hand with the entire episode lasting an hour. She states she was sweating, has nausea and dizziness but denies any palpitations, nausea, vomiting, LOC, fever, sore throat, or any other complaints. PMH: HTN, Diabetes, Gastritis, and asthma, PSH: Gastric Sleeve, Hiatal hernia repair Allergies: Zofran, Morphine Family Hx: father had esophageal cancer Medications: Metformin, Metoprolol Social: 4-5 cigarettes a day sometimes, denies alcohol or illicit drug use Present on Admission - Present on Admission Any Indicators Present on Admission: No Review of Systems - Constitutional Constitutional: absent: Chills, Fever, Headache, Night Sweats - EENT Eyes: absent: Change in Vision Ears: absent: Decreased Hearing Nose/Mouth/Throat: absent: Nasal Congestion, Nasal Discharge, Sore Throat - Cardiovascular Cardiovascular: Chest Pain, Chest Pain at Rest, Diaphoresis, Dyspnea. absent: Paroxysmal Nocturnal Dyspnea, Rapid Heart Rate Additional comments: Chest Pressure - Respiratory Respiratory: Dyspnea - Gastrointestinal Gastrointestinal: Abdominal Pain, Melena. absent: Hematemesis, Vomiting - Genitourinary Genitourinary: absent: Difficulty Urinating, Dysuria - Musculoskeletal Musculoskeletal: Numbness, Tingling Additional comments: numbness and tingling in hands during the chest pressure - Neurological Neurological: Dizziness. absent: Tingling Past Patient History - Infectious Disease Hx of Infectious Diseases: None - Tetanus Immunizations Tetanus Immunization: Unknown - Past Medical History & Family History Past Medical History?: Yes - Past Social History Smoking Status: Current Some Days Smoker - CARDIAC Hx Cardiac Disorders: Yes Hx Hypertension: Yes - PULMONARY Hx Respiratory Disorders: Yes (1/2 TO 3 CIG A DAY) Hx Asthma: Yes Hx Bronchitis: Yes Hx Sleep Apnea: Yes - NEUROLOGICAL Hx Neurological Disorder: No - HEENT Hx HEENT Problems: No - RENAL Hx Chronic Kidney Disease: No - ENDOCRINE/METABOLIC Hx Endocrine Disorders: Yes Hx Diabetes Mellitus Type 2: Yes (diet controlled) - HEMATOLOGICAL/ONCOLOGICAL Hx Blood Disorders: Yes (H/O GI BLEED) Hx Anemia: Yes - INTEGUMENTARY Hx Dermatological Problems: No - MUSCULOSKELETAL/RHEUMATOLOGICAL Hx Musculoskeletal Disorders: Yes (RADICULOPATHY) Hx Falls: No Hx Fractures: Yes (ORIF right wrist ) - GASTROINTESTINAL Hx Gastrointestinal Disorders: Yes (gastritis, esophageal polyp, colon polyp, GI bleed) Hx Gastroesophageal Reflux: Yes Other/Comment: GASTRIC SLEEVE - GENITOURINARY/GYNECOLOGICAL Hx Genitourinary Disorders: Yes (C SECTION,TUBAL LIGATION) - PSYCHIATRIC Hx Psychophysiologic Disorder: No Hx Substance Use: No - SURGICAL HISTORY Hx Gastric Bypass Surgery: Yes (gastric sleeve 2013) Hx Orthopedic Surgery: Yes (right wrist ORIF ) Other/Comment: Hiatal hernia Sx - ANESTHESIA Hx Anesthesia: Yes Hx Anesthesia Reactions: No Hx Malignant Hyperthermia: No Meds Allergies/Adverse Reactions: Allergies Allergy/AdvReac Type Severity Reaction Status Date / Time morphine Allergy Mild RASH Verified 09/30/16 16:58 shellfish derived Allergy Mild RASH Verified 09/30/16 16:58 seafood Allergy Severe URTICARIA Uncoded 09/30/16 16:58 dust Allergy ITCHING Uncoded 09/30/16 16:58 Physical Exam - Constitutional Appears: No Acute Distress - Head Exam Head Exam: ATRAUMATIC, NORMAL INSPECTION, NORMOCEPHALIC - Eye Exam Eye Exam: Normal appearance - Respiratory Exam Respiratory Exam: Clear to Auscultation Bilateral, NORMAL BREATHING PATTERN - Cardiovascular Exam Cardiovascular Exam: REGULAR RHYTHM, +S1, +S2 - GI/Abdominal Exam GI & Abdominal Exam: Tenderness Additional comments: Epigastric Tenderness - Rectal Exam Additional comments: BRBPR - Back Exam Back exam: absent: CVA tenderness (L), CVA tenderness (R) - Neurological Exam Neurological exam: Alert, Oriented x3 Results - Vital Signs Recent Vital Signs: Last Vital Signs Temp 99.2 F 04/08/17 00:15 Pulse 60 04/08/17 04:38 Resp 18 04/08/17 04:38 BP 144/84 04/08/17 00:23 Pulse Ox 100 04/08/17 04:38 - Labs Result Diagrams: 04/08/17 03:00 04/08/17 03:00 Assessment & Plan - Assessment and Plan (Free Text) Assessment: 41 yo AA female with PMH of HTN, Diabetes, Gastritis, and asthma presents with 1 day duration of SOB which began at 9pm while the patient was driving her car. She is being worked up for chest pain to rule out ACS. She is also being worked up for a GI bleed due to BRBPR during rectal exam. Plan: 1. Chest Pain- Rule out ACS - EKG obtained- normal sinus rhythm, no acute ST changes, pending official review - Serial troponins ordered - hold aspirin due to GI bleed - Hold b-vanesa due to low pressures - Atorvastatin started - Lipid Panel ordered 2. Abdominal pain with GI Bleed - Bright red per rectum on rectal exam - Hgb 8.3 continue to monitor - Serial CBC ordered - Patient made NPO - NS@150 - GI consulted - Protonix started - CT abdomen/pelvis with IV and PO Contrast ordered 3. Hypokalemia - K was 3.5 - K repleted - continue to monitor 4. DM - A1C level ordered - hold oral hypoglycemics - started on sliding scale lispro with accucheck ACHS 5. DVT Prophylaxis - SCD - Avoid AC in setting of suspected GI bleed Patient seen discussed and reviewed with Dr. Tse <Luis Tse - Last Filed: 04/08/17 07:09> Results - Vital Signs Recent Vital Signs: Last Vital Signs Temp 99.2 F 04/08/17 00:15 Pulse 60 04/08/17 04:38 Resp 18 04/08/17 04:38 BP 144/84 04/08/17 00:23 Pulse Ox 100 04/08/17 04:38 - Labs Result Diagrams: 04/08/17 03:00 04/08/17 03:00 Attending/Attestation - Attestation I have personally seen and examined this patient.: Yes I have fully participated in the care of the patient.: Yes I have reviewed all pertinent clinical information: Yes Notes (Text): 04/08/17 07:07 I agree with the above mentioned note and exam by Dr. Dent with the addition/ exception of the followin41 y/o female with Htn, DM, Asthma who presents with shortness of breath and chest tightness. Found to be more anemic than previously; no dynamic EKG changes. Possible underlying CAD made worse by anemia; also found to have BRBPR on rectal exam and does offer complaints of occasional melanotic stools. Last dark tarry stool was 3-4 days prior; GI consulted; serial h/h to be done; will also rule out ACS by serial cardiac enzymes.
[2017-04-08] MEDS: Sodium Chloride 0.9% 1,000 ML IV SCH ×2 (06:33→12:18)
[2017-04-08 07:37] LABS: EOS # 0.1 (0.0-0.7); GRAN # 1.85 (1.4-6.5); GRAN % 53.2 % (50.0-68.0); HEMATOCRIT 26.3 % (36.0-48.0); LYMPH # 1.3 (1.2-3.4); LYMPH % 37.6 % (22.0-35.0); MEAN CELL VOLUME 75.4 fl (80.0-105.0); MEAN CORPUSCULAR HEMOGLOBIN 22.6 pg (25.0-35.0); MEAN PLATELET VOLUME 8.1 fl (7.0-11.0); MONO # 0.3 (0.1-0.6); MONO % 7.2 % (1.0-6.0); WHITE BLOOD COUNT 3.5 10^3/ul (4.5-11.0)
[2017-04-08 07:55] LABS: TROPONIN I < 0.01 ng/mL
--- NOTE | 2017-04-08 08:00 | CP.PCM.CON ---
History of Present Illness - History of Present Illness History of Present Illness: GI Consult Note for Dr. Santacruz 41 y/o F with PMH of HTN, DM, Gastritis, and asthma presents for a 2 week history of shortness of breath. Patient states she felt chest discomfort and pressure while she was driving. Pt did admit to discomfort in the substernal area that radiated to his left arm. Pt states over this week she has developed chronic fatigue and weakness. Pt also mentions that she has had intermittent black tarry stools for the last year. She states she has bowel movements infrequently, about every 3-4 days. Patient does not use any laxatives or stool softening agents. Patient has no history of any NSAID use or peptobismol use. She also denies hematemesis, nausea, vomiting, diarrhea. Patient had an endoscopy last year due to melanotic stools. Endoscopy showed gastritis and duodenitis, along with a hiatal hernia. PMH: HTN, Diabetes, Gastritis, and asthma, PSH: Gastric Sleeve, Hiatal hernia repair FMH: father had esophageal cancer Social Hx: 1/4 ppd of cigarettes, denies alcohol or illicit drug use Medications: Reviewed, as per chart. Allergies: Zofran (Hives), Morphine Review of Systems - Review of Systems Review of Systems: 12 point ROS as per HPI, otherwise negative Past Patient History - Infectious Disease Hx of Infectious Diseases: None - Tetanus Immunizations Tetanus Immunization: Unknown - Past Medical History & Family History Past Medical History?: Yes - Past Social History Smoking Status: Current Some Days Smoker - CARDIAC Hx Cardiac Disorders: Yes Hx Hypertension: Yes - PULMONARY Hx Respiratory Disorders: Yes (1/2 TO 3 CIG A DAY) Hx Asthma: Yes Hx Bronchitis: Yes Hx Sleep Apnea: Yes - NEUROLOGICAL Hx Neurological Disorder: No - HEENT Hx HEENT Problems: No - RENAL Hx Chronic Kidney Disease: No - ENDOCRINE/METABOLIC Hx Endocrine Disorders: Yes Hx Diabetes Mellitus Type 2: Yes (diet controlled) - HEMATOLOGICAL/ONCOLOGICAL Hx Blood Disorders: Yes (H/O GI BLEED) Hx Anemia: Yes - INTEGUMENTARY Hx Dermatological Problems: No - MUSCULOSKELETAL/RHEUMATOLOGICAL Hx Musculoskeletal Disorders: Yes (RADICULOPATHY) Hx Falls: No Hx Fractures: Yes (ORIF right wrist ) - GASTROINTESTINAL Hx Gastrointestinal Disorders: Yes (gastritis, esophageal polyp, colon polyp, GI bleed) Hx Gastroesophageal Reflux: Yes Other/Comment: GASTRIC SLEEVE - GENITOURINARY/GYNECOLOGICAL Hx Genitourinary Disorders: Yes (C SECTION,TUBAL LIGATION) - PSYCHIATRIC Hx Psychophysiologic Disorder: No Hx Substance Use: No - SURGICAL HISTORY Hx Gastric Bypass Surgery: Yes (gastric sleeve 2013) Hx Orthopedic Surgery: Yes (right wrist ORIF ) Other/Comment: Hiatal hernia Sx - ANESTHESIA Hx Anesthesia: Yes Hx Anesthesia Reactions: No Hx Malignant Hyperthermia: No Meds Allergies/Adverse Reactions: Allergies Allergy/AdvReac Type Severity Reaction Status Date / Time morphine Allergy Mild RASH Verified 09/30/16 16:58 shellfish derived Allergy Mild RASH Verified 09/30/16 16:58 ondansetron Allergy RASH Verified 04/08/17 09:47 [From Zofran (as hydrochloride)] seafood Allergy Severe URTICARIA Uncoded 09/30/16 16:58 dust Allergy ITCHING Uncoded 09/30/16 16:58 - Medications Medications: Current Medications Atorvastatin Calcium (Lipitor) 40 mg PO DAILY COUNTS INCLUDE 234 BEDS AT THE [facility] Sodium Chloride (Sodium Chloride 0.9%) 1,000 mls @ 150 mls/hr IV .Q6H40M COUNTS INCLUDE 234 BEDS AT THE [facility] Last Admin: 04/08/17 06:33 Dose: 150 mls/hr Insulin Human Lispro (Humalog Low) 0 units SC ACHS COUNTS INCLUDE 234 BEDS AT THE [facility] PRN Reason: Protocol Pantoprazole Sodium (Protonix Inj) 40 mg IVP DAILY COUNTS INCLUDE 234 BEDS AT THE [facility] Physical Exam - Constitutional Appears: Non-toxic, No Acute Distress - Head Exam Head Exam: ATRAUMATIC, NORMAL INSPECTION, NORMOCEPHALIC - ENT Exam ENT Exam: Mucous Membranes Moist, Normal Exam - Respiratory Exam Respiratory Exam: Clear to Auscultation Bilateral, NORMAL BREATHING PATTERN. absent: Rales, Rhonchi, Wheezes - Cardiovascular Exam Cardiovascular Exam: RRR, +S1, +S2 - GI/Abdominal Exam GI & Abdominal Exam: Normal Bowel Sounds, Soft, Tenderness (Mild umbilical ) - Rectal Exam Additional comments: Normal tone, no hemorrhoids noted. No stool or blood. - Extremities Exam Extremities exam: Negative for: calf tenderness, pedal edema - Neurological Exam Neurological exam: Alert, CN II-XII Intact, Oriented x3 - Psychiatric Exam Psychiatric exam: Normal Affect, Normal Mood - Skin Skin Exam: Intact, Normal Color, Warm Results - Vital Signs Recent Vital Signs: Last Vital Signs Temp 99.2 F 04/08/17 00:15 Pulse 60 09/20/17 04:38 Resp 18 04/08/17 04:38 BP 144/84 04/08/17 00:23 Pulse Ox 100 04/08/17 04:38 - Labs Result Diagrams: 04/08/17 07:15 04/08/17 03:00 Labs: Laboratory Results - last 24 hr 04/08/17 07:15 WBC 3.5 L RBC 3.49 L Hgb 7.9 L Hct 26.3 L MCV 75.4 L MCH 22.6 L MCHC 30.0 L RDW 17.0 H Plt Count 305 MPV 8.1 Gran % 53.2 Lymph % (Auto) 37.6 H Edwards % (Auto) 7.2 H Eos % (Auto) 2.0 Baso % (Auto) 0.0 Gran # 1.85 Lymph # 1.3 Edwards # 0.3 Eos # 0.1 Baso # 0.00 Assessment & Plan - Assessment and Plan (Free Text) Plan: 41 y/o F with PMH of HTN, DM, Gastritis, and asthma presents with symptomatic anemia likely secondary to esophageal ulcer. Patient underwent EGD this morning which showed an esophageal ulcer, hiatal hernia, esophagitis, gastritis, and duodenitis. Patient will be treated to Protonix 40 mg daily. Continue medical management as per primary team. Patient is clear from GI perspective. Will sign off at this time. Plan: Protonix 40 mg daily Do not eat 3 hours before going to sleep Elevate head of bed 30 degrees when sleeping Avoid gastric irritating foods such as chocolate and mint Antiemetics for nausea Follow up with GI doctor within 2 months Continue medical management as per primary team Justice, PGY-2
[2017-04-08 08:04] LABS: CHOLESTEROL 123 mg/dL (130-200)
[2017-04-08 08:29] LABS: IRON 18 ug/dL (45-180)
[2017-04-08] MEDS: Insulin Lispro (humaLOG) LOW Coverage SC SCH ×4 (08:39→22:39)
[2017-04-08] MEDS ORDERED: Lactated Ringer's 1,000 ML IV SCH (08:45)
[2017-04-08] MEDS ORDERED: Propofol 10 mg/ml Inj (20 ML) ONE (09:23)
[2017-04-08] MEDS ORDERED: Albuterol HFA 90 mcg/actuation (8 g) IH PRN (11:46)
[2017-04-08] MEDS ORDERED: Albuterol 0.083% Inhal Sol (2.5 mg/3 mL) UD IH PRN (12:11)
[2017-04-08 13:14] LABS: BASO # 0.01 K/mm3 (0.0-2.0); BASO % 0.3 % (0.0-3.0); EOS # 0.1 (0.0-0.7); EOS % 1.7 % (1.5-5.0); GRAN # 1.11 (1.4-6.5); GRAN % 38.9 % (50.0-68.0); HEMATOCRIT 26.3 % (36.0-48.0); LYMPH # 1.5 (1.2-3.4); LYMPH % 52.1 % (22.0-35.0); MEAN CELL VOLUME 75.6 fl (80.0-105.0); MEAN CORPUSCULAR HEMOGLOBIN 22.7 pg (25.0-35.0); MEAN PLATELET VOLUME 7.8 fl (7.0-11.0); MONO # 0.2 (0.1-0.6); RED CELL DISTRIBUTION WIDTH 16.8 % (11.5-14.5)
[2017-04-08 13:16] LABS: WHITE BLOOD COUNT 2.9 10^3/ul (4.5-11.0)
--- NOTE | 2017-04-08 13:19 | RAD ---
HISTORY: sob COMPARISON: March 29 2017 FINDINGS: LUNGS: No active pulmonary disease. PLEURA: No significant pleural effusion identified, no pneumothorax apparent. CARDIOVASCULAR: Normal. OSSEOUS STRUCTURES: No significant abnormalities. VISUALIZED UPPER ABDOMEN: Normal. OTHER FINDINGS: None. IMPRESSION: No active disease. No interval pathology appreciated
[2017-04-08 21:57] LABS: BASO # 0.01 K/mm3 (0.0-2.0); BASO % 0.2 % (0.0-3.0); EOS # 0.1 (0.0-0.7); EOS % 1.2 % (1.5-5.0); GRAN # 3.86 (1.4-6.5); GRAN % 66.3 % (50.0-68.0); HEMATOCRIT 28.2 % (36.0-48.0); LYMPH # 1.5 (1.2-3.4); LYMPH % 26.5 % (22.0-35.0); MEAN CELL VOLUME 77.3 fl (80.0-105.0); MEAN CORPUSCULAR HEMOGLOBIN 23.6 pg (25.0-35.0); MEAN CORPUSCULAR HGB CONC 30.5 g/dl (31.0-37.0); MEAN PLATELET VOLUME 8.1 fl (7.0-11.0); MONO # 0.3 (0.1-0.6); MONO % 5.8 % (1.0-6.0); RED CELL DISTRIBUTION WIDTH 17.5 % (11.5-14.5); WHITE BLOOD COUNT 5.8 10^3/ul (4.5-11.0)
--- NOTE | 2017-04-08 23:17 | CARD ---
APPROVED REPORT EKG Measurement Heart [id number] <Conclusion> Unusual P axis, possible ectopic atrial rhythm Abnormal ECG
[2017-04-09] MEDS: Insulin Lispro (humaLOG) LOW Coverage SC SCH ×4 (08:09→21:52)
[2017-04-09] MEDS: Alum-Mag Hydrox-Simethicone Susp (30 mL) PO SCH (09:29)
[2017-04-09] MEDS: Pantoprazole 40 mg EC Tab PO SCH (09:29)
[2017-04-09] MEDS: Multivitamin Therapeutic Tab PO SCH (09:29)
[2017-04-09 11:19] LABS: BASO # 0.01 K/mm3 (0.0-2.0); BASO % 0.2 % (0.0-3.0); EOS # 0.1 (0.0-0.7); GRAN # 2.38 (1.4-6.5); GRAN % 54.2 % (50.0-68.0); HEMATOCRIT 30.5 % (36.0-48.0); LYMPH # 1.6 (1.2-3.4); LYMPH % 36.6 % (22.0-35.0); MEAN CELL VOLUME 77.2 fl (80.0-105.0); MEAN CORPUSCULAR HEMOGLOBIN 23.5 pg (25.0-35.0); MEAN CORPUSCULAR HGB CONC 30.5 g/dl (31.0-37.0); MEAN PLATELET VOLUME 8.4 fl (7.0-11.0); MONO # 0.3 (0.1-0.6); RED CELL DISTRIBUTION WIDTH 17.1 % (11.5-14.5); WHITE BLOOD COUNT 4.4 10^3/ul (4.5-11.0)
[2017-04-09 11:27] LABS: ALB/GLOB RATIO 1.1 (1.1-1.8); ALKALINE PHOSPHATASE 52 U/L (38-126); ALT/SGPT 16 U/L (7-56); AST/SGOT 14 U/L (14-36); BILIRUBIN,TOTAL 0.5 mg/dL (0.2-1.3); BLOOD UREA NITROGEN 6 mg/dL (7-21); CALCIUM 8.3 mg/dL (8.4-10.5); CARBON DIOXIDE 25 mmol/L (21-33); CHLORIDE 109 mmol/L (98-107); GFR AFRICAN-AMERICAN > 60; GLUCOSE,RANDOM 97 mg/dL (70-110); SODIUM 139 mmol/L (132-148)
[2017-04-09] MEDS ORDERED: HYDROmorphone 1 mg/ml ISec IVP STA (12:08)
[2017-04-09 12:09] LABS: BASO # 0.01 K/mm3 (0.0-2.0); BASO % 0.2 % (0.0-3.0); EOS # 0.1 (0.0-0.7); EOS % 1.8 % (1.5-5.0); GRAN # 2.29 (1.4-6.5); GRAN % 52.1 % (50.0-68.0); HEMATOCRIT 30.9 % (36.0-48.0); LYMPH # 1.7 (1.2-3.4); LYMPH % 38.2 % (22.0-35.0); MEAN CELL VOLUME 77.1 fl (80.0-105.0); MEAN CORPUSCULAR HEMOGLOBIN 23.4 pg (25.0-35.0); MEAN CORPUSCULAR HGB CONC 30.4 g/dl (31.0-37.0); MEAN PLATELET VOLUME 8.4 fl (7.0-11.0); MONO # 0.3 (0.1-0.6); MONO % 7.7 % (1.0-6.0); RED CELL DISTRIBUTION WIDTH 17.2 % (11.5-14.5); WHITE BLOOD COUNT 4.4 10^3/ul (4.5-11.0)
[2017-04-09 12:18] LABS: ALB/GLOB RATIO 1.3 (1.1-1.8); ALKALINE PHOSPHATASE 59 U/L (38-126); ALT/SGPT 21 U/L (7-56); AST/SGOT 15 U/L (14-36); BILIRUBIN,TOTAL 0.6 mg/dL (0.2-1.3); BLOOD UREA NITROGEN 6 mg/dL (7-21); CALCIUM 8.5 mg/dL (8.4-10.5); CARBON DIOXIDE 24 mmol/L (21-33); CHLORIDE 108 mmol/L (98-107); GFR AFRICAN-AMERICAN > 60; GLUCOSE,RANDOM 92 mg/dL (70-110); POTASSIUM 4.1 mmol/L (3.6-5.0); SODIUM 140 mmol/L (132-148); TOTAL PROTEIN 6.4 g/dL (5.8-8.3)
[2017-04-09 12:31] LABS: TROPONIN I < 0.01 ng/mL
[2017-04-09] MEDS ORDERED: DiphenhydrAMINE 50 mg/ml Inj IVP STA (12:38)
--- NOTE | 2017-04-09 13:27 | RAD ---
PROCEDURE: CHEST RADIOGRAPH, 1 VIEW HISTORY: chest pain COMPARISON: 04/08/2017 portable chest. FINDINGS: LUNGS: Clear. PLEURA: No pneumothorax or pleural fluid seen. CARDIOVASCULAR: Normal. OSSEOUS STRUCTURES: No significant abnormalities. VISUALIZED UPPER ABDOMEN: Normal. OTHER FINDINGS: None. IMPRESSION: No significant interval change or acute cardiopulmonary disease appreciated.
--- NOTE | 2017-04-09 16:52 | CP.PCM.PN ---
<JacquiElan - Last Filed: 04/09/17 17:08> Subjective - Date & Time of Evaluation Date of Evaluation: 04/09/17 Time of Evaluation: 06:58 - Subjective Subjective: This patient was seen and examined at bedside. The patient reports feeling better after her blood transfusion yesterday. The patient reports being able to walk to the nurses station without any difficulty. The patient denies any chest pain, shortness of breath, nausea, vomiting, changes in vision, sore throat, abdominal pain or any other complaints. Objective - Vital Signs/Intake and Output Vital Signs (last 24 hours): Temp Pulse Resp BP Pulse Ox 98.5 F 55 L 18 128/78 99 04/09/17 11:30 04/09/17 12:34 04/09/17 11:30 04/09/17 12:34 04/09/17 11:30 Intake and Output: 04/09/17 04/09/17 06:59 18:59 Intake Total 1165 480 Balance 1165 480 - Medications Medications: Current Medications Al Hydrox/Mg Hydrox/Simethicone (Maalox Plus 30 Ml) 30 ml PO DAILY [facility] Last Admin: 04/09/17 09:29 Dose: 30 ml Albuterol Sulfate (Albuterol 0.083% Inhal Gabbie (2.5 Mg/3 Ml) Ud) 2.5 mg IH [id number] PRN PRN Reason: Cough and congestion Atorvastatin Calcium (Lipitor) 40 mg PO DAILY [facility] Last Admin: 04/09/17 09:29 Dose: 40 mg Ferrous Sulfate (Feosol) 324 mg PO TID [facility] Last Admin: 04/09/17 13:43 Dose: 324 mg Insulin Human Lispro (Humalog Low) 0 units SC ACHS [facility] PRN Reason: Protocol Last Admin: 04/09/17 16:30 Dose: Not Given Metoprolol Tartrate (Lopressor) 12.5 mg PO BID [facility] Last Admin: 04/09/17 09:25 Dose: Not Given Montelukast Sodium (Singulair) 10 mg PO DAILY [facility] Last Admin: 04/09/17 09:29 Dose: 10 mg Multivitamins (Thera Tab) 1 tab PO DAILY [facility] Last Admin: 04/09/17 09:29 Dose: 1 tab Pantoprazole Sodium (Protonix Ec Tab) 40 mg PO DAILY [facility] Last Admin: 04/09/17 09:29 Dose: 40 mg - Labs Labs: 04/09/17 12:00 04/09/17 12:00 - Head Exam Head Exam: ATRAUMATIC, NORMAL INSPECTION, NORMOCEPHALIC - Eye Exam Eye Exam: EOMI, Normal appearance, PERRL Pupil Exam: NORMAL ACCOMODATION, PERRL. absent: Irregular - ENT Exam ENT Exam: Mucous Membranes Moist - Neck Exam Neck Exam: Normal Inspection - Respiratory Exam Respiratory Exam: Clear to Ausculation Bilateral, NORMAL BREATHING PATTERN. absent: Respiratory Distress - Cardiovascular Exam Cardiovascular Exam: REGULAR RHYTHM, RRR, +S1, +S2. absent: Gallop, Rubs - GI/Abdominal Exam GI & Abdominal Exam: Soft, Normal Bowel Sounds. absent: Rigid, Tenderness - Extremities Exam Extremities Exam: Normal Inspection - Back Exam Back Exam: NORMAL INSPECTION. absent: paraspinal tenderness - Neurological Exam Neurological Exam: Alert, Awake, Oriented x3 - Psychiatric Exam Psychiatric exam: Normal Affect, Normal Mood - Skin Skin Exam: Dry, Intact Assessment and Plan - Assessment and Plan (Free Text) Assessment: 41 yo AA female with PMH of HTN, Diabetes, Gastritis, and asthma presents with 1 day duration of SOB which began at 9pm while the patient was driving her car. She is being worked up for chest pain to rule out ACS. She is also being worked up for a GI bleed due to BRBPR during rectal exam. Plan: 1.. Chest Pain- Rule out ACS - EKG obtained- normal sinus rhythm, no acute ST changes. - Serial troponins ordered - hold aspirin due to GI bleed - Hold b-vanesa due to low pressures - Continue Atorvastatin -Chest pain started this afternoon. D-dimer ordered was elevated. CT angio of Chest ordered. Will f/u with results. 2. Abdominal pain with GI Bleed - Bright red per rectum on rectal exam - Hgb 8.6 s/p 1 unit of PRBC. - Serial CBC ordered - GI consult recs appreciated. - Protonix started 3. Hypokalemia - K was 4.1 today. - K repleted - Will continue to closely monitor with serial Cmp's. 4. DM - Blood glucose 115. - continue sliding scale lispro. -Contine accuchecks. 5. DVT Prophylaxis - SCD GI ppx -continue Protonix <Barbi DEVI,Leo - Last Filed: 04/10/17 15:11> Objective - Vital Signs/Intake and Output Vital Signs (last 24 hours): Temp Pulse Resp BP Pulse Ox 98.1 F 50 L 20 98/58 L 100 04/10/17 06:00 04/10/17 06:00 04/10/17 06:00 04/10/17 10:10 04/10/17 06:00 Intake and Output: 04/10/17 04/10/17 06:59 18:59 Intake Total 900 Balance 900 - Medications Medications: Current Medications Al Hydrox/Mg Hydrox/Simethicone (Maalox Plus 30 Ml) 30 ml PO DAILY [facility] Last Admin: 04/10/17 10:09 Dose: 30 ml Albuterol Sulfate (Albuterol 0.083% Inhal Gabbie (2.5 Mg/3 Ml) Ud) 2.5 mg IH [id number] PRN PRN Reason: Cough and congestion Atorvastatin Calcium (Lipitor) 40 mg PO DAILY [facility] Last Admin: 04/10/17 10:09 Dose: 40 mg Ferrous Sulfate (Feosol) 324 mg PO TID [facility] Last Admin: 04/10/17 10:09 Dose: 324 mg Insulin Human Lispro (Humalog Low) 0 units SC ACHS [facility] PRN Reason: Protocol Last Admin: 04/10/17 11:52 Dose: Not Given Metoprolol Tartrate (Lopressor) 12.5 mg PO BID [facility] Last Admin: 04/10/17 10:10 Dose: Not Given Montelukast Sodium (Singulair) 10 mg PO DAILY [facility] Last Admin: 04/10/17 10:09 Dose: 10 mg Multivitamins (Thera Tab) 1 tab PO DAILY [facility] Last Admin: 04/10/17 10:09 Dose: 1 tab Pantoprazole Sodium (Protonix Ec Tab) 40 mg PO DAILY [facility] Last Admin: 04/10/17 10:09 Dose: 40 mg - Labs Labs: 04/10/17 06:46 04/10/17 06:46 Attending/Attestation - Attestation I have personally seen and examined this patient.: Yes I have fully participated in the care of the patient.: Yes I have reviewed all pertinent clinical information, including history, physical exam and plan: Yes Notes (Text): 04/10/17 15:09 Patient was seen and examined with medical service representative. Patient had episode of chest pain this afternoon, EKG is negative for acute ischemic changes, has chest wall tenderness, troponins are normal. D dimer is mildly elevated, for CTA chest to rule out Pulmonary embolism, if no PE on CT, can go home on PPI/Iron and laxative. Management plan was discussed in detail with patient Education was provided.
[2017-04-09] MEDS ORDERED: Iodixanol 320 MG/ML 100 ML BOTTLE IV ONE (18:05)
--- NOTE | 2017-04-09 18:44 | CARD ---
APPROVED REPORT EKG Measurement Heart [id number] <Conclusion> Sinus bradycardia with sinus arrhythmia Otherwise normal ECG
--- NOTE | 2017-04-09 20:08 | CON ---
DATE: CARDIOLOGY CONSULT REASON FOR CONSULTATION: Chest pain. HISTORY OF PRESENT ILLNESS: The patient is a 41-year-old female, smoker and hypertensive as well as diabetic, presented because of epigastric pain and was noted to be anemic. The patient's initial hemoglobin and hematocrit was 8.3 and 27.0. The patient received 1 unit of packed RBC. The patient did report having black tarry stool in the past. An upper endoscopy was performed and was consistent with hiatal narrowing, esophagitis, esophageal ulcer and gastritis. The patient underwent an echocardiographic study in May of last year, which revealed biatrial enlargement, normal left ventricular size and systolic function, mild concentric LVH. A stress Myoview stress test was unremarkable. The patient had normal gated wall motion and thickening of the left ventricle, essentially normal SPECT myocardial perfusion study. The patient is experiencing sharp left-sided chest pain. She denied any radiation. SOCIAL HISTORY: The patient is a smoker. She lost her recently. PAST MEDICAL HISTORY: History of tubal ligation. MEDICATIONS: Albuterol inhaler, ferrous sulphate, Lopressor 12.5 mg twice daily, Lipitor 40 mg once a day. PHYSICAL EXAMINATION: GENERAL: The patient is a middle-aged female who does not appear to be in any distress. VITAL SIGNS: Blood pressure 128/78, heart rate 55, temperature 98.5, respirations 18. HEENT: Pale conjunctivae. CHEST: Clear. HEART: S1 and S2, regular. EXTREMITIES: No edema. LABORATORY DATA: Hemoglobin and hematocrit 9.4 and 30.9, white count 4.4, platelet count 194,000. SMA-7 is within normal limits except for chloride of 108 and BUN 6. All troponins are negative. EKG revealed normal sinus rhythm. ASSESSMENT: 1. Atypical chest pain, myocardial infarction was ruled out. 2. Hypertension. 3. Anemia secondary to gastrointestinal bleed. RECOMMENDATIONS: Continue current conservative medical approach. Consider an outpatient stress test. Obtain urine for drug screen. May consider CT in view of recent borderline elevated D-dimer. Alcides Martinez MD
--- NOTE | 2017-04-09 21:29 | CT ---
EXAM: CT Angiography Chest With Intravenous Contrast EXAM DATE/TIME: 04/09/2017 3:36 PM CLINICAL HISTORY: The patient age is 41 years old and is female; Pain; Chest pain; Prior surgery; Surgery type: Gastric sleeve - - tubal ligation - hiatal hernia; Additional info: R/O pe. New onset chest pain. Facility exam id and description: [facility] angio chest pe protocol TECHNIQUE: Axial computed tomographic angiography images of the chest with intravenous contrast using pulmonary embolism protocol. All CT scans at this facility use one or more dose reduction techniques, viz.: automated exposure control; ma/kV adjustment per patient size (including targeted exams where dose is matched to indication; i.e. head); or iterative reconstruction technique. MIP reconstructed images were created and reviewed. Coronal and sagittal reformatted images were created and reviewed. CONTRAST: 96 mL of VISIPAQUE administered intravenously. COMPARISON: DX - CHEST ONE VIEW 04/09/2017 11:53:34 AM FINDINGS: Pulmonary arteries: There is no acute central pulmonary embolism. Evaluation of the peripheral pulmonary embolus arteries for pulmonary embolism is suboptimal due to artifact. Aorta: No acute findings. No thoracic aortic aneurysm. Lungs: Patchy nonspecific groundglass density is identified within the lungs bilaterally, most significant within the lower lobes. No lung mass. Pleural space: No significant effusion. No pneumothorax. Heart: There is mild cardiomegaly. Fluid is visualized within the superior pericardial recesses. Mediastinum: Postoperative changes are identified involving the stomach. There is a moderate-sized hiatal hernia, wall thickening. Wall thickening is also visualized in the distal esophagus, which may be inflammatory, although additional pathology cannot be excluded. Bones/joints: Hypertrophic degenerative changes are noted within the spine. Lymph nodes: No enlarged lymph nodes. IMPRESSION: 1. There is no acute central pulmonary embolism. Evaluation of the peripheral pulmonary embolus arteries for pulmonary embolism is suboptimal due to artifact. 2. Patchy nonspecific groundglass density is identified within the lungs bilaterally, most significant within the lower lobes. 3. There is mild cardiomegaly. 4. Postoperative changes are identified involving the stomach. There is a moderate-sized hiatal hernia, wall thickening. Wall thickening is also visualized in the distal esophagus, which may be inflammatory, although additional pathology cannot be excluded. 5. Incidental/non-acute findings are described above.
[2017-04-10 07:01] LABS: BASO # 0.02 K/mm3 (0.0-2.0); BASO % 0.5 % (0.0-3.0); EOS # 0.1 (0.0-0.7); GRAN # 2.31 (1.4-6.5); GRAN % 58.2 % (50.0-68.0); HEMATOCRIT 29.8 % (36.0-48.0); LYMPH # 1.3 (1.2-3.4); LYMPH % 32.5 % (22.0-35.0); MEAN CELL VOLUME 76.4 fl (80.0-105.0); MEAN CORPUSCULAR HEMOGLOBIN 23.6 pg (25.0-35.0); MEAN CORPUSCULAR HGB CONC 30.9 g/dl (31.0-37.0); MEAN PLATELET VOLUME 8.7 fl (7.0-11.0); MONO # 0.3 (0.1-0.6); MONO % 6.8 % (1.0-6.0); RED CELL DISTRIBUTION WIDTH 17.2 % (11.5-14.5)
[2017-04-10 07:10] LABS: ALB/GLOB RATIO 1.1 (1.1-1.8); ALKALINE PHOSPHATASE 54 U/L (38-126); ALT/SGPT 22 U/L (7-56); AST/SGOT 17 U/L (14-36); BILIRUBIN,TOTAL 0.5 mg/dL (0.2-1.3); BLOOD UREA NITROGEN 7 mg/dL (7-21); CALCIUM 8.4 mg/dL (8.4-10.5); CARBON DIOXIDE 27 mmol/L (21-33); CHLORIDE 108 mmol/L (98-107); GFR AFRICAN-AMERICAN > 60; GLUCOSE,RANDOM 97 mg/dL (70-110); POTASSIUM 3.8 mmol/L (3.6-5.0); SODIUM 141 mmol/L (132-148); TOTAL PROTEIN 5.9 g/dL (5.8-8.3)
[2017-04-10] MEDS: Insulin Lispro (humaLOG) LOW Coverage SC SCH ×2 (08:30→11:52)
[2017-04-10 09:49] VITALS: BP 98/58; PULSE 50; RESP 20; TEMP 98.1; O2SAT 100
[2017-04-10] MEDS: Multivitamin Therapeutic Tab PO SCH (10:09)
[2017-04-10] MEDS: Alum-Mag Hydrox-Simethicone Susp (30 mL) PO SCH (10:09)
[2017-04-10] MEDS: Pantoprazole 40 mg EC Tab PO SCH (10:09)
--- NOTE | 2017-04-10 14:09 | US ---
HISTORY: Leg pain and swelling. Evaluate for DVT PHYSICIAN(S): Boyd Salguero MD. TECHNIQUE: Duplex sonography and color-flow Doppler with graded compression were used to evaluate the deep venous systems of both lower extremities. FINDINGS: The visualized deep venous systems of both lower extremities are sonographically normal and compressible. Normal wave forms and augmentation are seen. There is no sonographic evidence for deep venous thrombosis in the visualized segments of both lower extremities. IMPRESSION: No sonographic evidence for deep venous thrombosis in the visualized segments of both lower extremities.
--- NOTE | 2017-04-10 18:12 | CP.PCM.DIS ---
<JacquiElan - Last Filed: 04/10/17 18:30> Provider - Provider Date of Admission: 04/08/17 04:50 Attending physician: Leo Landon MD Primary care physician: Trevor Jones MD Time Spent in preparation of Discharge (in minutes): 50 Hospital Course - Lab Results Lab Results: Micro Results 04/08/17 08:00 Urine,Clean Catch Urine Culture - Final 10-50,000 CFU/ML. MULTIPLE SPECIES. PROBABLE CONTAMINATION. Most Recent Lab Values WBC 4.0 10^3/ul (4.5-11.0) L 04/10/17 06:46 RBC 3.90 10^6/uL (3.5-6.1) 04/10/17 06:46 Hgb 9.2 g/dL (12.0-16.0) L 04/10/17 06:46 Hct 29.8 % (36.0-48.0) L 04/10/17 06:46 MCV 76.4 fl (80.0-105.0) L 04/10/17 06:46 MCH 23.6 pg (25.0-35.0) L 04/10/17 06:46 MCHC 30.9 g/dl (31.0-37.0) L 04/10/17 06:46 RDW 17.2 % (11.5-14.5) H 04/10/17 06:46 Plt Count 299 10^3/uL (120.0-450.0) 04/10/17 06:46 MPV 8.7 fl (7.0-11.0) 04/10/17 06:46 Gran % 58.2 % (50.0-68.0) 04/10/17 06:46 Lymph % (Auto) 32.5 % (22.0-35.0) 04/10/17 06:46 [place] % (Auto) 6.8 % (1.0-6.0) H 04/10/17 06:46 Eos % (Auto) 2.0 % (1.5-5.0) 04/10/17 06:46 Baso % (Auto) 0.5 % (0.0-3.0) 04/10/17 06:46 Gran # 2.31 (1.4-6.5) 04/10/17 06:46 Lymph # 1.3 (1.2-3.4) 04/10/17 06:46 [place] # 0.3 (0.1-0.6) 04/10/17 06:46 Eos # 0.1 (0.0-0.7) 04/10/17 06:46 Baso # 0.02 K/mm3 (0.0-2.0) 04/10/17 06:46 D-Dimer, Quantitative 0.63 mg/L FEU (0-0.50) H 04/09/17 12:00 Sodium 141 mmol/L (132-148) 04/10/17 06:46 Potassium 3.8 mmol/L (3.6-5.0) 04/10/17 06:46 Chloride 108 mmol/L (98-107) H 04/10/17 06:46 Carbon Dioxide 27 mmol/L (21-33) 04/10/17 06:46 Anion Gap 10 (10-20) 04/10/17 06:46 BUN 7 mg/dL (7-21) 04/10/17 06:46 Creatinine 0.7 mg/dL (0.5-1.4) 04/10/17 06:46 Est GFR ( Amer) > 60 04/10/17 06:46 Est GFR (Non-Af Amer) > 60 04/10/17 06:46 POC Glucose (mg/dL) 101 mg/dL (65-110) 04/10/17 11:10 Random Glucose 97 mg/dL (70-110) 04/10/17 06:46 Hemoglobin A1c 6.3 % (4.2-6.5) 04/08/17 07:15 Calcium 8.4 mg/dL (8.4-10.5) 04/10/17 06:46 Iron 18 ug/dL (45-180) L 04/08/17 07:15 TIBC 388 ug/dL (265-497) 04/08/17 07:15 % Saturation 5 % (20-55) L 04/08/17 07:15 Ferritin 4.2 ng/mL 04/08/17 07:15 Total Bilirubin 0.5 mg/dL (0.2-1.3) 04/10/17 06:46 AST 17 U/L (14-36) 04/10/17 06:46 ALT 22 U/L (7-56) 04/10/17 06:46 Alkaline Phosphatase 54 U/L (38-126) 04/10/17 06:46 Lactate Dehydrogenase 422 U/L (333-699) 04/09/17 12:00 Total Creatine Kinase 140 U/L (35-230) 04/09/17 12:00 Troponin I < 0.01 ng/mL 04/09/17 18:31 Total Protein 5.9 g/dL (5.8-8.3) 04/10/17 06:46 Albumin 3.2 g/dL (3.0-4.8) 04/10/17 06:46 Globulin 2.8 gm/dL 04/10/17 06:46 Albumin/Globulin Ratio 1.1 (1.1-1.8) 04/10/17 06:46 Triglycerides 90 mg/dL (35-160) 04/08/17 07:15 Cholesterol 123 mg/dL (130-200) L 04/08/17 07:15 LDL Cholesterol Direct 75 mg/dL (0-129) 04/08/17 07:15 HDL Cholesterol 35 mg/dL (29-60) 04/08/17 07:15 Urine Color Yellow (YELLOW) 04/08/17 04:48 Urine Appearance Sl cloudy (CLEAR) 04/08/17 04:48 Urine pH 6.5 (4.7-8.0) 04/08/17 04:48 Ur Specific [place] 1.010 (1.005-1.035) 04/08/17 04:48 Urine Protein 30 mg/dL (<30 mg/dL) H 04/08/17 04:48 Urine Glucose (UA) Negative mg/dL (NEGATIVE) 04/08/17 04:48 Urine Ketones Negative mg/dL (NEGATIVE) 04/08/17 04:48 Urine Blood Large (NEGATIVE) H 04/08/17 04:48 Urine Nitrate Negative (NEGATIVE) 04/08/17 04:48 Urine Bilirubin Negative (NEGATIVE) 04/08/17 04:48 Urine Urobilinogen 2.0 E.U./dL (<1 E.U./dL) H 04/08/17 04:48 Ur Leukocyte Esterase Small Jody/uL (NEGATIVE) H 04/08/17 04:48 Urine RBC Tntc /hpf (0-2) 04/08/17 04:48 Urine WBC 2 - 5 /hpf (0-6) 04/08/17 04:48 Ur Epithelial Cells 0 - 2 /hpf (0-5) 04/08/17 04:48 Urine Bacteria Occ (NEG) 04/08/17 04:48 Urine Opiates Screen Negative (NEGATIVE) 04/09/17 17:05 Urine Methadone Screen Negative (NEGATIVE) 04/09/17 17:05 Ur Barbiturates Screen Negative (NEGATIVE) 04/09/17 17:05 Ur Phencyclidine Scrn Negative (NEGATIVE) 04/09/17 17:05 Ur Amphetamines Screen Negative (NEGATIVE) 04/09/17 17:05 U Benzodiazepines Scrn Negative (NEGATIVE) 04/09/17 17:05 U Oth Cocaine Metabols Negative (NEGATIVE) 04/09/17 17:05 U Cannabinoids Screen Negative (NEGATIVE) 04/09/17 17:05 Blood Type O POSITIVE 04/08/17 14:00 Antibody Screen Negative 04/08/17 14:00 Crossmatch See Detail 04/08/17 14:00 BBK History Checked Patient has bt 04/08/17 14:00 - Hospital Course Hospital Course: This is a 41 year old female with a past medical history of diabetes, gastritis, HTN, and asthma who presents to the emergency department with complaints of shortness of breath for one day. The patient reports driving her car around 9p.m. when she suddenly began to feel short of breath. She also reported in conjunction with the shortness of breath she had chest tightness that was immediately followed by her face tightening up. The patients chest tightness also radiated to her left arm To get relief the patient rolled her window down to get more air in. The patient reports that the whole episode lasted approximately one hour. While in the emergency department the patient had an EKG done that was normal sinus rhythm with a rate of 72. The patients lipase was within normal limits and troponins were ordered. The patient also had a chest xray that showed The patient was admitted to rule out and ACS. The patient had an chest xray that was negative. The patient had an endoscopy done which showed esophagitis and was also seen by a School Aide. While admitted the patient had a low hemoglobin and it was indicated at that time to have 1 unit of PRBC transfused and 1 unit of IV venofer. The patient had a mildly elevated d-dimer and she had a CT angiogram of the chest done which was negative for pulmonary embolism. The patient also had a duplex u/w of the bilateral lower extremity done that was negative for DVT. The patient was consulted by Cardiology and seen. The patient was cleared by cardiology to go home. The patient H/H was stable and she was no longer complaining of chest pain. The patient was discharged with Fe supplement and Maalox and was advised to follow up with a GI, PMD, and OBGyn within a week of discharge. Discharge Exam - Head Exam Head Exam: ATRAUMATIC, NORMAL INSPECTION, NORMOCEPHALIC - Eye Exam Eye Exam: EOMI, Normal appearance, PERRL Pupil Exam: NORMAL ACCOMODATION, PERRL. absent: Miosis - ENT Exam ENT Exam: Mucous Membranes Moist - Respiratory Exam Respiratory Exam: Clear to PA & Lateral, NORMAL BREATHING PATTERN, UNREMARKABLE. absent: Accessory Muscle Use, Decreased Breath Sounds, Wheezes - Cardiovascular Exam Cardiovascular Exam: REGULAR RHYTHM, RRR, +S1, +S2. absent: Gallop, Rubs - GI/Abdominal Exam GI & Abdominal Exam: Normal Bowel Sounds, Unremarkable. absent: Distended, Firm - Extremities Exam Extremities exam: full ROM - Back Exam Back exam: NORMAL INSPECTION. absent: paraspinal tenderness - Neurological Exam Neurological exam: Alert, CN II-XII Intact, Normal Gait, Oriented x3, Reflexes Normal - Psychiatric Exam Psychiatric exam: Normal Affect, Normal Mood - Skin Skin Exam: Dry, Intact Discharge Plan - Discharge Medications Prescriptions: Ferrous Sulfate 325 mg PO BID #60 tablet Ferrous Sulfate [Feosol] 325 mg PO BID #60 ect Pantoprazole Sodium [Protonix] 40 mg PO DAILY #30 ect Polyethylene Glycol 3350 [Miralax] 17 gm PO DAILY #7 ml - Follow Up Plan Condition: FAIR Disposition: HOME/ ROUTINE Instructions: Anemia (DC) Additional Instructions: -Patient should follow up with PMD within one week of discharge. -Patient should follow up with MANAGER LAUNDRY within one week of discharge. -follow up with GI for EGD in 3 month. -Patient should return to stop her aspirin for one week after discharge. Patient can restart after. -Patient should return to emergency department for any new or worsening symptoms. Referrals: Trevor Jones MD [Primary Care Provider] - <Leo Landon MD - Last Filed: 04/11/17 10:43> Provider - Provider Date of Admission: 04/08/17 04:50 Attending physician: Leo Landon MD Primary care physician: Trevor Jones MD Hospital Course - Lab Results Lab Results: Micro Results 04/08/17 08:00 Urine,Clean Catch Urine Culture - Final 10-50,000 CFU/ML. MULTIPLE SPECIES. PROBABLE CONTAMINATION. Most Recent Lab Values WBC 4.0 10^3/ul (4.5-11.0) L 04/10/17 06:46 RBC 3.90 10^6/uL (3.5-6.1) 04/10/17 06:46 Hgb 9.2 g/dL (12.0-16.0) L 04/10/17 06:46 Hct 29.8 % (36.0-48.0) L 04/10/17 06:46 MCV 76.4 fl (80.0-105.0) L 04/10/17 06:46 MCH 23.6 pg (25.0-35.0) L 04/10/17 06:46 MCHC 30.9 g/dl (31.0-37.0) L 04/10/17 06:46 RDW 17.2 % (11.5-14.5) H 04/10/17 06:46 Plt Count 299 10^3/uL (120.0-450.0) 04/10/17 06:46 MPV 8.7 fl (7.0-11.0) 04/10/17 06:46 Gran % 58.2 % (50.0-68.0) 04/10/17 06:46 Lymph % (Auto) 32.5 % (22.0-35.0) 04/10/17 06:46 [place] % (Auto) 6.8 % (1.0-6.0) H 04/10/17 06:46 Eos % (Auto) 2.0 % (1.5-5.0) 04/10/17 06:46 Baso % (Auto) 0.5 % (0.0-3.0) 04/10/17 06:46 Gran # 2.31 (1.4-6.5) 04/10/17 06:46 Lymph # 1.3 (1.2-3.4) 04/10/17 06:46 [place] # 0.3 (0.1-0.6) 04/10/17 06:46 Eos # 0.1 (0.0-0.7) 04/10/17 06:46 Baso # 0.02 K/mm3 (0.0-2.0) 04/10/17 06:46 D-Dimer, Quantitative 0.63 mg/L FEU (0-0.50) H 04/09/17 12:00 Sodium 141 mmol/L (132-148) 04/10/17 06:46 Potassium 3.8 mmol/L (3.6-5.0) 04/10/17 06:46 Chloride 108 mmol/L (98-107) H 04/10/17 06:46 Carbon Dioxide 27 mmol/L (21-33) 04/10/17 06:46 Anion Gap 10 (10-20) 04/10/17 06:46 BUN 7 mg/dL (7-21) 04/10/17 06:46 Creatinine 0.7 mg/dL (0.5-1.4) 04/10/17 06:46 Est GFR ( Amer) > 60 04/10/17 06:46 Est GFR (Non-Af Amer) > 60 04/10/17 06:46 POC Glucose (mg/dL) 101 mg/dL (65-110) 04/10/17 11:10 Random Glucose 97 mg/dL (70-110) 04/10/17 06:46 Hemoglobin A1c 6.3 % (4.2-6.5) 04/08/17 07:15 Calcium 8.4 mg/dL (8.4-10.5) 04/10/17 06:46 Iron 18 ug/dL (45-180) L 04/08/17 07:15 TIBC 388 ug/dL (265-497) 04/08/17 07:15 % Saturation 5 % (20-55) L 04/08/17 07:15 Ferritin 4.2 ng/mL 04/08/17 07:15 Total Bilirubin 0.5 mg/dL (0.2-1.3) 04/10/17 06:46 AST 17 U/L (14-36) 04/10/17 06:46 ALT 22 U/L (7-56) 04/10/17 06:46 Alkaline Phosphatase 54 U/L (38-126) 04/10/17 06:46 Lactate Dehydrogenase 422 U/L (333-699) 04/09/17 12:00 Total Creatine Kinase 140 U/L (35-230) 04/09/17 12:00 Troponin I < 0.01 ng/mL 04/09/17 18:31 Total Protein 5.9 g/dL (5.8-8.3) 04/10/17 06:46 Albumin 3.2 g/dL (3.0-4.8) 04/10/17 06:46 Globulin 2.8 gm/dL 04/10/17 06:46 Albumin/Globulin Ratio 1.1 (1.1-1.8) 04/10/17 06:46 Triglycerides 90 mg/dL (35-160) 04/08/17 07:15 Cholesterol 123 mg/dL (130-200) L 04/08/17 07:15 LDL Cholesterol Direct 75 mg/dL (0-129) 04/08/17 07:15 HDL Cholesterol 35 mg/dL (29-60) 04/08/17 07:15 Urine Color Yellow (YELLOW) 04/08/17 04:48 Urine Appearance Sl cloudy (CLEAR) 04/08/17 04:48 Urine pH 6.5 (4.7-8.0) 04/08/17 04:48 Ur Specific [place] 1.010 (1.005-1.035) 04/08/17 04:48 Urine Protein 30 mg/dL (<30 mg/dL) H 04/08/17 04:48 Urine Glucose (UA) Negative mg/dL (NEGATIVE) 04/08/17 04:48 Urine Ketones Negative mg/dL (NEGATIVE) 04/08/17 04:48 Urine Blood Large (NEGATIVE) H 04/08/17 04:48 Urine Nitrate Negative (NEGATIVE) 04/08/17 04:48 Urine Bilirubin Negative (NEGATIVE) 04/08/17 04:48 Urine Urobilinogen 2.0 E.U./dL (<1 E.U./dL) H 04/08/17 04:48 Ur Leukocyte Esterase Small Jody/uL (NEGATIVE) H 04/08/17 04:48 Urine RBC Tntc /hpf (0-2) 04/08/17 04:48 Urine WBC 2 - 5 /hpf (0-6) 04/08/17 04:48 Ur Epithelial Cells 0 - 2 /hpf (0-5) 04/08/17 04:48 Urine Bacteria Occ (NEG) 04/08/17 04:48 Urine Opiates Screen Negative (NEGATIVE) 04/09/17 17:05 Urine Methadone Screen Negative (NEGATIVE) 04/09/17 17:05 Ur Barbiturates Screen Negative (NEGATIVE) 04/09/17 17:05 Ur Phencyclidine Scrn Negative (NEGATIVE) 04/09/17 17:05 Ur Amphetamines Screen Negative (NEGATIVE) 04/09/17 17:05 U Benzodiazepines Scrn Negative (NEGATIVE) 04/09/17 17:05 U Oth Cocaine Metabols Negative (NEGATIVE) 04/09/17 17:05 U Cannabinoids Screen Negative (NEGATIVE) 04/09/17 17:05 Blood Type O POSITIVE 04/08/17 14:00 Antibody Screen Negative 04/08/17 14:00 Crossmatch See Detail 04/08/17 14:00 BBK History Checked Patient has bt 04/08/17 14:00 Attending/Attestation - Attestation I have personally seen and examined this patient.: Yes I have fully participated in the care of the patient.: Yes I have reviewed all pertinent clinical information, including history, physical exam and plan: Yes Notes (Text): 04/11/17 10:30 Patient was seen and examined with medical radiation tech. 41 yrs old female was admitted with symptomatic anemia and atypical chest pain. EGD showed esophagitis, started on PPI and will need repeat EGD in 3 month. She has microcytic hypochromic anemia due to iron deficiency anemia due to mennorhagia, following with her OBGYN.She is not having any active bleeding at this time.She was given 1 unit of PRBC, dyspnea has improved and she has been started on oral Iron. Patient had episode of chest pain yesterday. EKG is negative for acute ischemic changes, has chest wall tenderness, troponins were normal.She was evaluated by cardiology, has recent negative stress test, no further work up was recommended. D dimer is mildly elevated, for CTA chest was negative for PE and Doppler was negative for DVT Patient will be discharged home and will follow up with PCP, OBGYN and her home sales consultant. Management plan was discussed in detail with patient Education was provided.
== END 2017-04-10 16:19 | disposition home or self-care (01) ==
LOC: ED 00:13 → ERH 04:50 → 3RNO 06:51
PROVIDERS: ADMIT Internal Medicine; ATTEND Internal Medicine
DX: K92.2 Gastrointestinal hemorrhage, unspecified (principal); D50.0 Iron deficiency anemia secondary to blood loss (chronic); K22.10 Ulcer of esophagus without bleeding; K29.50 Unspecified chronic gastritis without bleeding; B96.81 Helicobacter pylori [H. pylori] as the cause of diseases classified elsewhere; R07.89 Other chest pain; E87.6 Hypokalemia; E11.9 Type 2 diabetes mellitus without complications; J45.909 Unspecified asthma, uncomplicated; I10 Essential (primary) hypertension; F17.210 Nicotine dependence, cigarettes, uncomplicated; K21.0 Gastro-esophageal reflux disease with esophagitis; Z98.84 Bariatric surgery status; Z98.51 Tubal ligation status; Z80.0 Family history of malignant neoplasm of digestive organs
CPT/HCPCS: 36415; 36430; 43239; 71010; 71275; 80053; 80061; 80324; 80345; 80346; 80349; 80353; 80358; 80361; 81001; 82550; 82728; 82948; 83036; 83540; 83550; 83615; 83992; 84484; 85025; 85378; 86850; 86900; 86920; 87040; 87086; 88305; 88312; 88342; 93005; 93970; 96374; 96375; 99284; G0378; J1170; J1200; J2001; J2704; J3010; J3480; J7040; P9016; Q9967

== ENCOUNTER 2017-04-14 19:38 | Observation (INO) | payer OTHER ==
[2017-04-14 21:10] LABS: BASO # 0.01 K/mm3 (0.0-2.0); BASO % 0.2 % (0.0-3.0); EOS # 0.1 (0.0-0.7); EOS % 1.8 % (1.5-5.0); GRAN # 2.8 (1.4-6.5); GRAN % 55.7 % (50.0-68.0); HEMATOCRIT 29.1 % (36.0-48.0); LYMPH # 1.8 (1.2-3.4); LYMPH % 35.7 % (22.0-35.0); MEAN CORPUSCULAR HEMOGLOBIN 23.5 pg (25.0-35.0); MEAN CORPUSCULAR HGB CONC 30.6 g/dl (31.0-37.0); MEAN PLATELET VOLUME 8.6 fl (7.0-11.0); MONO # 0.3 (0.1-0.6); MONO % 6.6 % (1.0-6.0); RED CELL DISTRIBUTION WIDTH 17.6 % (11.5-14.5)
[2017-04-14 21:19] LABS: INR 1.05 (0.93-1.08); PARTIAL THROMBOPLASTIN TIME 27.7 Seconds (23.7-30.8)
[2017-04-14 21:30] LABS: ALB/GLOB RATIO 1.3 (1.1-1.8); ALKALINE PHOSPHATASE 66 U/L (38-126); ALT/SGPT 19 U/L (7-56); AMYLASE 62 U/L (35-125); AST/SGOT 19 U/L (14-36); BILIRUBIN,TOTAL 0.3 mg/dL (0.2-1.3); BLOOD UREA NITROGEN 8 mg/dL (7-21); CALCIUM 8.7 mg/dL (8.4-10.5); CARBON DIOXIDE 24 mmol/L (21-33); CHLORIDE 107 mmol/L (98-107); GFR AFRICAN-AMERICAN > 60; GLUCOSE,RANDOM 94 mg/dL (70-110); LIPASE 67 U/L (23-300); POTASSIUM 3.7 mmol/L (3.6-5.0); SODIUM 141 mmol/L (132-148); TOTAL PROTEIN 6.6 g/dL (5.8-8.3)
[2017-04-14 21:43] LABS: TROPONIN I < 0.01 ng/mL
--- NOTE | 2017-04-15 00:12 | ED PDOC ---
Arrival/HPI - General Chief Complaint: Abdominal Pain Time Seen by Provider: 04/14/17 20:13 Historian: Patient - History of Present Illness Narrative History of Present Illness (Text): 04/15/17 00:12 A 41 year old female presents to the emergency department complaining of black stools. Patient reports she was recently diagnosed with anemia. Notes she was given iron pills, but hasn't started taking them. Patient denies any fever, abdominal pain, shortness of breath, dysuria, headache, dizziness or any other complaints at this time. PMD: Dr. Jones Symptom Onset: Sudden Symptom Course: Unchanged Activities at Onset: Rest Context: Home Past Medical History - Provider Review Nursing Documentation Reviewed: Yes - Infectious Disease Hx of Infectious Diseases: None - Tetanus Immunization Tetanus Immunization: Unknown - Cardiac Hx Cardiac Disorders: Yes Hx Hypertension: Yes - Pulmonary Hx Respiratory Disorders: Yes Hx Asthma: Yes Hx Bronchitis: Yes Hx Sleep Apnea: Yes - Neurological Hx Neurological Disorder: No - HEENT Hx HEENT Disorder: No - Renal Hx Renal Disorder: No - Endocrine/Metabolic Hx Endocrine Disorders: Yes Hx Diabetes Mellitus Type 2: Yes (diet controlled) - Hematological/Oncological Hx Blood Disorders: Yes (H/O GI BLEED) Hx Anemia: Yes - Integumentary Hx Dermatological Disorder: No - Musculoskeletal/Rheumatological Hx Musculoskeletal Disorders: Yes (RADICULOPATHY) Hx Falls: No Hx Fractures: Yes (ORIF right wrist ) - Gastrointestinal Hx Gastrointestinal Disorders: Yes (gastritis, esophageal polyp, colon polyp, GI bleed) Hx Gastroesophageal Reflux: Yes Other/Comment: GASTRIC SLEEVE - Genitourinary/Gynecological Hx Genitourinary Disorders: Yes (C SECTION,TUBAL LIGATION) - Psychiatric Hx Psychophysiologic Disorder: No Hx Substance Use: No - Past Surgical History Past Surgical History: Non-Contributing - Surgical History Hx Gastric Bypass Surgery: Yes (gastric sleeve 2013) Hx Orthopedic Surgery: Yes (right wrist ORIF ) Other/Comment: Hiatal hernia Sx - Anesthesia Hx Anesthesia: Yes Hx Anesthesia Reactions: No Hx Malignant Hyperthermia: No - Suicidal Assessment Feels Threatened In Home Enviroment: No Family/Social History - Physician Review Nursing Documentation Reviewed: Yes Family/Social History: No Known Family HX Smoking Status: Current Some Days Smoker Hx Alcohol Use: No Hx Substance Use: No Hx Substance Use Treatment: No Allergies/Home Meds Allergies/Adverse Reactions: Allergies morphine Allergy (Mild, Verified 04/14/17 20:03) RASH shellfish derived Allergy (Mild, Verified 04/14/17 20:03) RASH hydromorphone [From Dilaudid] Allergy (Verified 04/14/17 20:03) RASH ondansetron [From Zofran (as hydrochloride)] Allergy (Verified 04/14/17 20:03) RASH seafood Allergy (Severe, Uncoded 04/14/17 20:03) URTICARIA dust Allergy (Uncoded 04/14/17 20:03) ITCHING Home Medications: Home Meds Medication Instructions Recorded Confirmed Montelukast Sodium [Singulair] 10 mg PO DAILY 08/25/16 04/14/17 Omeprazole 40 mg PO DAILY 11/05/16 04/14/17 Review of Systems - Physician Review All systems were reviewed & negative as marked: Yes - Review of Systems Constitutional: absent: Fevers Respiratory: absent: SOB Gastrointestinal: Other (black stools). absent: Abdominal Pain Genitourinary Female: absent: Dysuria Neurological: absent: Headache, Dizziness Physical Exam Vital Signs Reviewed: Yes Vital Signs Temp Pulse Resp BP Pulse Ox 04/14/17 20:05 99.1 F 72 16 107/55 L 99 Temperature: Afebrile Blood Pressure: Hypotensive Pulse: Regular Respiratory Rate: Normal Appearance: Positive for: Well-Appearing, Non-Toxic, Comfortable Pain Distress: None Mental Status: Positive for: Alert and Oriented X 3 - Systems Exam Head: Present: Atraumatic, Normocephalic Pupils: Present: PERRL Extroacular Muscles: Present: EOMI Conjunctiva: Present: Normal Mouth: Present: Moist Mucous Membranes Neck: Present: Normal Range of Motion Respiratory/Chest: Present: Clear to Auscultation, Good Air Exchange. No: Respiratory Distress, Accessory Muscle Use Cardiovascular: Present: Regular Rate and Rhythm, Normal S1, S2. No: Murmurs Abdomen: Present: Normal Bowel Sounds. No: Tenderness, Distention, Peritoneal Signs Back: Present: Normal Inspection Upper Extremity: Present: Normal Inspection. No: Cyanosis, Edema Lower Extremity: Present: Normal Inspection. No: Edema Neurological: Present: GCS=15, CN II-XII Intact, Speech Normal Skin: Present: Warm, Dry, Normal Color. No: Rashes Psychiatric: Present: Alert, Oriented x 3, Normal Insight, Normal Concentration Medical Decision Making ED Course and Treatment: 04/15/17 00:09 Impression: A 41 year old female with black stools. Plan: -- EKG -- chest xray -- labs -- Pepcid, Protonix, Zofran -- Reassess and disposition Prior Visits: Notes and results from previous visits were reviewed. Patient last reported to the emergency department on 04/08/17 for evaluation of shortness of breath. Progress Notes: EKG: Ordered, reviewed, and independently interpreted the EKG. Rate : 59 BPM Rhythm : sinus bradycardia Interpretation : 1st degree AV block, normal intervals. chest xray: No active disease, interpreted by me. Spoke with resident and Dr. Raza, who agree with plan for patient to be admitted to [facility]. - Lab Interpretations Lab Results: 04/14/17 20:57 04/14/17 20:57 Lab Results 04/14/17 20:57: Blood Type O POSITIVE, Antibody Screen Negative, BBK History Checked Patient has bt 04/14/17 20:57: Sodium 141, Potassium 3.7, Chloride 107, Carbon Dioxide 24, Anion Gap 14, BUN 8, Creatinine 0.8, Est GFR ( Amer) > 60, Est GFR (Non- Af Amer) > 60, Random Glucose 94, Calcium 8.7, Total Bilirubin 0.3, AST 19, ALT 19, Alkaline Phosphatase 66, Lactate Dehydrogenase 482, Total Creatine Kinase 166, Troponin I < 0.01, Total Protein 6.6, Albumin 3.7, Globulin 2.9, Albumin/ Globulin Ratio 1.3, Amylase 62, Lipase 67 04/14/17 20:57: PT 11.3, INR 1.05, APTT 27.7 04/14/17 20:57: WBC 5.0 D, RBC 3.78, Hgb 8.9 L, Hct 29.1 L, MCV 77.0 L, MCH 23.5 L, MCHC 30.6 L, RDW 17.6 H, Plt Count 330, MPV 8.6, Gran % 55.7, Lymph % ( Auto) 35.7 H, [place] % (Auto) 6.6 H, Eos % (Auto) 1.8, Baso % (Auto) 0.2, Gran # 2.80, Lymph # 1.8, [place] # 0.3, Eos # 0.1, Baso # 0.01 I have reviewed the lab results: Yes - RAD Interpretation Radiology Orders: 04/14/17 20:26 CHEST PORTABLE [RAD] Stat - EKG Interpretation Interpreted by ED Physician: Yes Type: 12 lead EKG - Medication Orders Current Medication Orders: Acetaminophen (Tylenol 325mg Tab) 650 mg PO Q4 PRN PRN Reason: Pain, moderate (4-7) Hydralazine HCl (Apresoline) 10 mg IVP Q6 PRN PRN Reason: HTN Pantoprazole Sodium (Protonix 40mg Ivpb) 40 mg in 100 mls @ 20 mls/hr IVPB .Q5H MALIHA Insulin Human Regular (Humulin R Low) 0 units SC ACHS MALIHA PRN Reason: Protocol Discontinued Medications Famotidine (Pepcid) 20 mg IVP STAT STA Stop: 04/14/17 20:27 Last Admin: 04/14/17 21:12 Dose: 20 mg IVP Administration Document 04/14/17 21:12 MERLIN (Rec: 04/15/17 00:13 MERLIN [id number]) Charges for Administration # of IVP Administrations 1 Pantoprazole Sodium (Protonix Inj) 40 mg IVP STAT STA Stop: 04/14/17 20:27 Last Admin: 04/14/17 21:12 Dose: 40 mg IVP Administration Document 04/14/17 21:12 MERLIN (Rec: 04/15/17 00:12 MERLIN [id number]) Charges for Administration # of IVP Administrations 1 - Scribe Statement The provider has reviewed the documentation as recorded by the Kermit Berry Provider Scribe Attestation: All medical record entries made by the Vipulibjonatan were at my direction and personally dictated by me. I have reviewed the chart and agree that the record accurately reflects my personal performance of the history, physical exam, medical decision making, and the department course for this patient. I have also personally directed, reviewed, and agree with the discharge instructions and disposition. Disposition/Present on Arrival - Present on Arrival Any Indicators Present on Arrival: No History of DVT/PE: No History of Uncontrolled Diabetes: No Urinary Catheter: No History of Decub. Ulcer: No History Surgical Site Infection Following: None - Disposition Have Diagnosis and Disposition been Completed?: Yes Diagnosis: GERD (gastroesophageal reflux disease), Anemia, Gastrointestinal bleeding Disposition: HOSPITALIZED Disposition Time: 23:15 Condition: GOOD
--- NOTE | 2017-04-15 00:43 | CP.PCM.HP ---
<Harris Epstein - Last Filed: 04/15/17 06:17> History of Present Illness - History of Present Illness History of Present Illness: Chief Complaint Melena and abdominal pain HPI Patient is a 41 year old black female with a past medical history of NIDDM, HTN , asthma , gastritis, esophagitis, esophageal ulcers who presents to the [facility] on 04/14/17 with complaints of dark stools since 04/12/17 associated with epigastric pain. Patient states that her first episode of melena occurred in 2013 s/p gastric sleeve when one of the jose pierced into her hiatal hernia. S/P hiatal hernia repair in 2014 patient didn't experience melena. However hiatal hernia returned in 03/2016 which is when he bloody stools returned. She states that the melena has been on and off since March 2016 but she never paid much attention to it until 04/12 when the bowel movements became more frequent and daily. Patient states she normally moves her bowels a few times a week however in the last 24 hours she moved her bowels five times which is unusual for her. When asked patient states she has lost about 15 lbs in the past month unintentionally. She also admits to nausea, abdominal pain, melena, and shortness of breath. Denies v/d/f/c,dizziness, chest pain. Patient was recently admitted on 04/08 and treated for anemia with 1 PRBC and 1 unit of venofer. Upper endoscopy was also performed in which she was found to have esophageal ulcers and esophagitis. Patient was then discharged with Fe supplements and Maalox and advised to follow up with GI in one week; patient did not follow up with GI as of yet. PMH: HTN, NIDDM, Asthma, Gastritis, Esophagitis, Esophageal ulcers PSH: Gastric sleeve, hiatal hernia repair FMH: Father- esophageal cancer, Aunt- pancreatic cancer, Uncles- Lung cancer, Paternal grandmother- breast cancer Social Hx: ppd smoking history, denies alcohol consumption, or illicit drug use Allergies: Zofran, Morphine Present on Admission - Present on Admission Any Indicators Present on Admission: No Review of Systems - Review of Systems Systems not reviewed;Unavailable: Acuity of Condition (15 lbs in one month - unintentional) - Constitutional Constitutional: Weight Loss. absent: Anorexia, Chills, Fever, Increased Appetite - EENT Eyes: absent: Blurred Vision, Change in Vision - Cardiovascular Cardiovascular: Dyspnea, Palpitations. absent: Chest Pain, Diaphoresis - Respiratory Respiratory: Dyspnea. absent: Cough, Dyspnea on Exertion, Wheezing - Gastrointestinal Gastrointestinal: Abdominal Pain (epigastric and sternal region) - Genitourinary Genitourinary: absent: Dysuria, Hematuria - Neurological Neurological: absent: Dizziness, Syncope Past Patient History - Infectious Disease Hx of Infectious Diseases: None - Tetanus Immunizations Tetanus Immunization: Unknown - Past Medical History & Family History Past Medical History?: Yes - Past Social History Smoking Status: Current Some Days Smoker - CARDIAC Hx Cardiac Disorders: Yes Hx Hypertension: Yes - PULMONARY Hx Respiratory Disorders: Yes Hx Asthma: Yes Hx Bronchitis: Yes Hx Sleep Apnea: Yes - NEUROLOGICAL Hx Neurological Disorder: No - HEENT Hx HEENT Problems: No - RENAL Hx Chronic Kidney Disease: No - ENDOCRINE/METABOLIC Hx Endocrine Disorders: Yes Hx Diabetes Mellitus Type 2: Yes (diet controlled) - HEMATOLOGICAL/ONCOLOGICAL Hx Blood Disorders: Yes (H/O GI BLEED) Hx Anemia: Yes - INTEGUMENTARY Hx Dermatological Problems: No - MUSCULOSKELETAL/RHEUMATOLOGICAL Hx Musculoskeletal Disorders: Yes (RADICULOPATHY) Hx Falls: No Hx Fractures: Yes (ORIF right wrist ) - GASTROINTESTINAL Hx Gastrointestinal Disorders: Yes (gastritis, esophageal polyp, colon polyp, GI bleed) Hx Gastroesophageal Reflux: Yes Other/Comment: GASTRIC SLEEVE - GENITOURINARY/GYNECOLOGICAL Hx Genitourinary Disorders: Yes (C SECTION,TUBAL LIGATION) - PSYCHIATRIC Hx Psychophysiologic Disorder: No Hx Substance Use: No - SURGICAL HISTORY Hx Gastric Bypass Surgery: Yes (gastric sleeve 2013) Hx Orthopedic Surgery: Yes (right wrist ORIF ) Other/Comment: Hiatal hernia Sx - ANESTHESIA Hx Anesthesia: Yes Hx Anesthesia Reactions: No Hx Malignant Hyperthermia: No Meds Allergies/Adverse Reactions: Allergies Allergy/AdvReac Type Severity Reaction Status Date / Time morphine Allergy Mild RASH Verified 04/14/17 20:03 shellfish derived Allergy Mild RASH Verified 04/14/17 20:03 hydromorphone [From Dilaudid] Allergy RASH Verified 04/14/17 20:03 ondansetron Allergy RASH Verified 04/14/17 20:03 [From Zofran (as hydrochloride)] seafood Allergy Severe URTICARIA Uncoded 04/14/17 20:03 dust Allergy ITCHING Uncoded 04/14/17 20:03 Physical Exam - Head Exam Head Exam: ATRAUMATIC, NORMAL INSPECTION, NORMOCEPHALIC - Eye Exam Eye Exam: EOMI, Normal appearance - ENT Exam ENT Exam: Mucous Membranes Moist, Normal Exam - Respiratory Exam Respiratory Exam: Clear to Auscultation Bilateral, NORMAL BREATHING PATTERN - Cardiovascular Exam Cardiovascular Exam: REGULAR RHYTHM, +S1, +S2 - GI/Abdominal Exam GI & Abdominal Exam: Normal Bowel Sounds. absent: Distended - Rectal Exam Rectal Exam: NORMAL INSPECTION - Back Exam Back exam: NORMAL INSPECTION - Neurological Exam Neurological exam: Alert, CN II-XII Intact, Oriented x3 - Skin Skin Exam: Normal Color, Warm Results - Vital Signs Recent Vital Signs: Last Vital Signs Temp 99.1 F 04/14/17 20:05 Pulse 72 04/14/17 20:05 Resp 16 04/14/17 20:05 BP 107/55 L 04/14/17 20:05 Pulse Ox 99 04/14/17 20:05 - Labs Result Diagrams: 04/14/17 20:57 04/14/17 20:57 Assessment & Plan - Assessment and Plan (Free Text) Assessment: Assessment 41 year old female with bloody stools and abdominal pain Plan 1.GI Bleed NPO pain control with tylenol GI Consulted 2. NIDDM Low dose sliding scale insulin 3. HTN hydralazine q 6 PRN systolic BP >165 GI/DVT prophylaxis Protonix drip 8 mg per hour/SCDS <Luz Marina DEVI,Gustavo - Last Filed: 04/17/17 13:56> Results - Vital Signs Recent Vital Signs: Last Vital Signs Temp 98.5 F 04/16/17 09:05 Pulse 51 L 04/16/17 09:05 Resp 18 04/16/17 09:05 BP 104/66 04/16/17 09:05 Pulse Ox 99 04/16/17 09:05 - Labs Result Diagrams: 04/16/17 08:00 04/16/17 08:00 Attending/Attestation - Attestation I have personally seen and examined this patient.: Yes I have fully participated in the care of the patient.: Yes I have reviewed all pertinent clinical information: Yes Notes (Text): -I agree with the above H&P completed by the resident physician.
[2017-04-15] MEDS: Pantoprazole 40mg/100ml IVPB 40 MG/100 ML BAG IVPB SCH ×5 (01:37→20:30)
[2017-04-15 04:18] VITALS: TEMP 98.5; BMI 36.8
[2017-04-15] MEDS: Sodium Chloride 0.9% 1,000 ML IV SCH ×2 (06:16→16:53)
[2017-04-15 07:46] LABS: BASO # 0.01 K/mm3 (0.0-2.0); BASO % 0.3 % (0.0-3.0); EOS # 0.1 (0.0-0.7); EOS % 1.8 % (1.5-5.0); GRAN # 1.69 (1.4-6.5); GRAN % 49.3 % (50.0-68.0); HEMATOCRIT 27.8 % (36.0-48.0); LYMPH # 1.4 (1.2-3.4); LYMPH % 40.1 % (22.0-35.0); MEAN CELL VOLUME 76.6 fl (80.0-105.0); MEAN CORPUSCULAR HEMOGLOBIN 23.1 pg (25.0-35.0); MEAN CORPUSCULAR HGB CONC 30.2 g/dl (31.0-37.0); MEAN PLATELET VOLUME 7.9 fl (7.0-11.0); MONO # 0.3 (0.1-0.6); MONO % 8.5 % (1.0-6.0); RED CELL DISTRIBUTION WIDTH 17.4 % (11.5-14.5); WHITE BLOOD COUNT 3.4 10^3/ul (4.5-11.0)
[2017-04-15 08:01] LABS: ALB/GLOB RATIO 1.2 (1.1-1.8); ALKALINE PHOSPHATASE 53 U/L (38-126); ALT/SGPT 26 U/L (7-56); AST/SGOT 15 U/L (14-36); BILIRUBIN,TOTAL 0.6 mg/dL (0.2-1.3); BLOOD UREA NITROGEN 7 mg/dL (7-21); CALCIUM 8.5 mg/dL (8.4-10.5); CARBON DIOXIDE 25 mmol/L (21-33); CHLORIDE 110 mmol/L (95-110); GFR AFRICAN-AMERICAN > 60; GLUCOSE,RANDOM 95 mg/dL (70-110); MAGNESIUM 1.9 mg/dL (1.7-2.2); PHOSPHOROUS 3.8 mg/dL (2.5-4.5); POTASSIUM 3.7 mmol/L (3.6-5.0); SODIUM 142 mmol/L (132-148); TOTAL PROTEIN 5.7 g/dL (5.8-8.3)
[2017-04-15] MEDS: Insulin Reg-LOW-Coverage SC SCH ×4 (08:14→21:27)
--- NOTE | 2017-04-15 09:50 | RAD ---
HISTORY: gi bleed COMPARISON: Portable chest radiograph 04/09/2017. FINDINGS: LUNGS: No active pulmonary disease. PLEURA: No significant pleural effusion identified, no pneumothorax apparent. CARDIOVASCULAR: Normal. OSSEOUS STRUCTURES: No significant abnormalities. VISUALIZED UPPER ABDOMEN: Normal. OTHER FINDINGS: None. IMPRESSION: No acute cardiopulmonary disease or significant interval change appreciated.
[2017-04-15] MEDS: Ferrous Sulfate 300 mg/5 mL Liq UD PO SCH ×3 (10:42→17:15)
--- NOTE | 2017-04-15 11:07 | CARD ---
APPROVED REPORT EKG Measurement Heart [id number] [place] [id number] <Conclusion> Sinus bradycardia with sinus arrhythmia with 1st degree AV block Otherwise normal ECG
[2017-04-15] MEDS: Sucralfate 1 gm/10 ml Oral Susp UD PO SCH ×3 (12:38→21:15)
--- NOTE | 2017-04-15 14:04 | CON ---
DATE: 04/15/2017 GASTROENTEROLOGY CONSULTATION REQUESTING PHYSICIAN: Dr. Olivia Marquez. REASON FOR CONSULTATION: I have been asked to see this 41-year-old female who was just discharged from the hospital 5 days ago. She was admitted at that time for GI bleeding and found to have esophageal ulcers, grade D esophagitis on endoscopy, who did not take her prescribed PPI after discharge, who started developing dark stools over the last several days. The patient actually started developing dark stools today after discharge from the hospital; again she did not take her prescribed PPI. The patient has a long history of GI bleeding, especially with a history of bleeding from a surgical staple from a gastric sleeve several years ago. She currently admits to some mild abdominal pain. She denies any chest pain or shortness of breath. Routine blood work in the emergency room showed her blood count to be 8.4, which is not much different from her hemoglobin of 8.9 on discharge from hospital. Her BUN is normal. The patient did receive 1 unit of packed red blood cells several days ago, as well as, Venofer. PAST MEDICAL HISTORY: Notable for GI bleeding, esophageal ulcers esophagitis, hypertension, type 2 diabetes mellitus, asthma, and gastritis. PAST SURGICAL HISTORY: Notable for gastric sleeve and hiatal hernia repair. SOCIAL HISTORY: She smokes up to a half pack of cigarettes per day. She denies alcohol use. FAMILY HISTORY: Noncontributory. REVIEW OF SYSTEMS: A 14-point review of systems is notable for melena and mild abdominal pain. PHYSICAL EXAMINATION: GENERAL APPEARANCE: Well-developed female lying in bed in no acute distress. VITAL SIGNS: Reveal temperature of 98.5, blood pressure 100/62, and heart rate 58. HEENT: Reveal sclerae to be white. Conjunctivae pale. NECK: Supple. CHEST: Lungs clear. HEART: Reveals regular rate and rhythm. ABDOMEN: Soft. Mild epigastric tenderness. No rebound. No guarding. EXTREMITIES: Show no edema. LABORATORY DATA: Reveals hemoglobin of 8.4. Chemistries reveal BUN 7 and creatinine 0.7. AST, ALT, and alkaline phosphatase were all normal. IMPRESSION: A 41-year-old female with history of gastrointestinal bleeding secondary to esophageal ulcers, grade D esophagitis, noncompliant with medications with several days of melena. Given a normal BUN, I do not believe that she is bleeding at this time. Again she had an endoscopy 5 days ago. She was noncompliant with her medications. Her hemoglobin is not much changed from prior CBC. RECOMMENDATIONS: 1. Advance diet. 2. Continue PPI pantoprazole 40 mg twice a day. 3. I will start the patient on Carafate suspension 1 g 4 times a day. 4. Continue iron supplements. 5. The patient can be discharged home with outpatient followup. No repeat GI testing is planned at this time. Delroy Hill MD
[2017-04-16] MEDS: Pantoprazole 40mg/100ml IVPB 40 MG/100 ML BAG IVPB SCH ×3 (00:22→11:38)
[2017-04-16] MEDS: Sodium Chloride 0.9% 1,000 ML IV SCH ×3 (02:05→11:44)
[2017-04-16] MEDS: Insulin Reg-LOW-Coverage SC SCH ×2 (08:23→11:39)
[2017-04-16] MEDS: Sucralfate 1 gm/10 ml Oral Susp UD PO SCH ×2 (08:23→11:39)
[2017-04-16 08:25] LABS: BASO # 0.01 K/mm3 (0.0-2.0); BASO % 0.3 % (0.0-3.0); EOS # 0.1 (0.0-0.7); EOS % 1.3 % (1.5-5.0); GRAN # 2.29 (1.4-6.5); GRAN % 57.9 % (50.0-68.0); LYMPH # 1.3 (1.2-3.4); LYMPH % 33.9 % (22.0-35.0); MEAN CELL VOLUME 76.5 fl (80.0-105.0); MEAN CORPUSCULAR HEMOGLOBIN 23.2 pg (25.0-35.0); MEAN CORPUSCULAR HGB CONC 30.3 g/dl (31.0-37.0); MEAN PLATELET VOLUME 8.3 fl (7.0-11.0); MONO # 0.3 (0.1-0.6); MONO % 6.6 % (1.0-6.0); RED CELL DISTRIBUTION WIDTH 17.4 % (11.5-14.5)
[2017-04-16 08:31] LABS: ALB/GLOB RATIO 1.2 (1.1-1.8); ALKALINE PHOSPHATASE 50 U/L (38-126); ALT/SGPT 18 U/L (7-56); AST/SGOT 14 U/L (14-36); BILIRUBIN,TOTAL 0.3 mg/dL (0.2-1.3); BLOOD UREA NITROGEN 4 mg/dL (7-21); CALCIUM 8.1 mg/dL (8.4-10.5); CARBON DIOXIDE 24 mmol/L (21-33); CHLORIDE 110 mmol/L (98-107); GFR AFRICAN-AMERICAN > 60; GLUCOSE,RANDOM 90 mg/dL (70-110); POTASSIUM 3.9 mmol/L (3.6-5.0); SODIUM 139 mmol/L (132-148); TOTAL PROTEIN 5.6 g/dL (5.8-8.3)
[2017-04-16 09:05] VITALS: BP 104/66; PULSE 51; RESP 18; O2SAT 99
[2017-04-16] MEDS: Ferrous Sulfate 300 mg/5 mL Liq UD PO SCH ×2 (11:38→13:34)
--- NOTE | 2017-04-16 13:01 | PN ---
DATE: 04/16/2017 SUBJECTIVE: The patient is lying in bed comfortable. She denies any further chest pain or abdominal pain. She has not had any bowel movement. No further melena. OBJECTIVE: VITAL SIGNS: Reveals temperature of 98.5, blood pressure 104/66, and heart rate 51. ABDOMEN: Soft and nontender. LABORATORY DATA: Revealed hemoglobin 9.1, this is stable, BUN 4 and creatinine 0.6. IMPRESSION: This 41-year-old female admitted to the hospital with dark stools from possible gastrointestinal bleeding. Her count is actually increased to 9.1. Her BUN is normal. There is no evidence of active gastrointestinal bleeding. She had an upper endoscopy about a week ago and was found to have several esophageal ulcers with grade D esophagitis. RECOMMENDATIONS: 1. Continue Protonix 40 mg twice a day. 2. Carafate suspension 1 g 4 times a day NOTE: The patient did not vegetable picker her medications, when she was discharged from the hospital 5 days ago. I have instructed the patient that this is extremely important to prevent another admission to the hospital. Delroy Hill MD
[2017-04-16] MEDS ORDERED: Albuterol 0.083% Inhal Sol (2.5 mg/3 mL) UD IH PRN (13:13)
[2017-04-16] MEDS ORDERED: Albuterol HFA 90 mcg/actuation (8 g) IH PRN (13:13)
--- NOTE | 2017-04-16 14:08 | CP.PCM.DIS ---
<JacquiElan - Last Filed: 04/16/17 19:21> Provider - Provider Date of Admission: 04/14/17 23:14 Attending physician: Filiberto Marquez MD Primary care physician: Nick Jones MD Time Spent in preparation of Discharge (in minutes): 45 Hospital Course - Lab Results Lab Results: Most Recent Lab Values WBC 4.0 10^3/ul (4.5-11.0) L 04/16/17 08:00 RBC 3.92 10^6/uL (3.5-6.1) 04/16/17 08:00 Hgb 9.1 g/dL (12.0-16.0) L 04/16/17 08:00 Hct 30.0 % (36.0-48.0) L 04/16/17 08:00 MCV 76.5 fl (80.0-105.0) L 04/16/17 08:00 MCH 23.2 pg (25.0-35.0) L 04/16/17 08:00 MCHC 30.3 g/dl (31.0-37.0) L 04/16/17 08:00 RDW 17.4 % (11.5-14.5) H 04/16/17 08:00 Plt Count 284 10^3/uL (120.0-450.0) 04/16/17 08:00 MPV 8.3 fl (7.0-11.0) 04/16/17 08:00 Gran % 57.9 % (50.0-68.0) 04/16/17 08:00 Lymph % (Auto) 33.9 % (22.0-35.0) 04/16/17 08:00 Harding % (Auto) 6.6 % (1.0-6.0) H 04/16/17 08:00 Eos % (Auto) 1.3 % (1.5-5.0) L 04/16/17 08:00 Baso % (Auto) 0.3 % (0.0-3.0) 04/16/17 08:00 Gran # 2.29 (1.4-6.5) 04/16/17 08:00 Lymph # 1.3 (1.2-3.4) 04/16/17 08:00 Harding # 0.3 (0.1-0.6) 04/16/17 08:00 Eos # 0.1 (0.0-0.7) 04/16/17 08:00 Baso # 0.01 K/mm3 (0.0-2.0) 04/16/17 08:00 PT 11.3 Seconds (9.9-11.8) 04/14/17 20:57 INR 1.05 (0.93-1.08) 04/14/17 20:57 APTT 27.7 Seconds (23.7-30.8) 04/14/17 20:57 Sodium 139 mmol/L (132-148) 04/16/17 08:00 Potassium 3.9 mmol/L (3.6-5.0) 04/16/17 08:00 Chloride 110 mmol/L (98-107) H 04/16/17 08:00 Carbon Dioxide 24 mmol/L (21-33) 04/16/17 08:00 Anion Gap 9 (10-20) L 04/16/17 08:00 BUN 4 mg/dL (7-21) L 04/16/17 08:00 Creatinine 0.6 mg/dL (0.5-1.4) 04/16/17 08:00 Est GFR ( Amer) > 60 04/16/17 08:00 Est GFR (Non-Af Amer) > 60 04/16/17 08:00 POC Glucose (mg/dL) 156 mg/dL (65-110) H 04/16/17 11:24 Random Glucose 90 mg/dL (70-110) 04/16/17 08:00 Calcium 8.1 mg/dL (8.4-10.5) L 04/16/17 08:00 Phosphorus 3.8 mg/dL (2.5-4.5) 04/15/17 07:30 Magnesium 1.9 mg/dL (1.7-2.2) 04/15/17 07:30 Total Bilirubin 0.3 mg/dL (0.2-1.3) 04/16/17 08:00 AST 14 U/L (14-36) 04/16/17 08:00 ALT 18 U/L (7-56) 04/16/17 08:00 Alkaline Phosphatase 50 U/L (38-126) 04/16/17 08:00 Lactate Dehydrogenase 482 U/L (333-699) 04/14/17 20:57 Total Creatine Kinase 166 U/L (35-230) 04/14/17 20:57 Troponin I < 0.01 ng/mL 04/14/17 20:57 Total Protein 5.6 g/dL (5.8-8.3) L 04/16/17 08:00 Albumin 3.0 g/dL (3.0-4.8) 04/16/17 08:00 Globulin 2.6 gm/dL 04/16/17 08:00 Albumin/Globulin Ratio 1.2 (1.1-1.8) 04/16/17 08:00 Amylase 62 U/L (35-125) 04/14/17 20:57 Lipase 67 U/L (23-300) 04/14/17 20:57 Blood Type O POSITIVE 04/14/17 20:57 Antibody Screen Negative 04/14/17 20:57 BBK History Checked Patient has bt 04/14/17 20:57 - Hospital Course Hospital Course: Patient is a 41 year old black female with a past medical history of NIDDM, HTN , asthma , gastritis, esophagitis, esophageal ulcers who presents to the [facility] [place] ED on 04/14/17 with complaints of dark stools since 04/12/17 associated with epigastric pain. Patient states that her first episode of melena occurred in 2013 s/p gastric sleeve when one of the jose pierced into her hiatal hernia. S/P hiatal hernia repair in 2014 patient didn't experience melena. Patient was recently admitted on 04/08 and treated for anemia with 1 PRBC and 1 unit of venofer. Upper endoscopy was also performed in which she was found to have esophageal ulcers and esophagitis. Patient was then discharged with Fe supplements and Maalox and advised to follow up with GI in one week; patient did not follow up with GI as of yet. Patient reported some lightheadedness and dizziness and feeling fatigue upon examination. The patient was seen by GI during her hospital stay who recommended no further inpatient intervention on their end and to follow up as an outpatient. The patient hemoglobin dropped while she was hospitalized and she was given 1 unit of Venofer. Her blood pressure also dropped into the high 80's systolic. The patient was held overnight due to her being symptomatic. Upon examination this morning the patient's systolic blood pressure was 104 and she no longer reported feeling fatigue, dizzy, or lightheaded. Her clinical picture had improved and she was discharged with the instructions to follow up with her PMD, GI ,and OBGYN doctors within one week of discharge. Discharge Exam - Head Exam Head Exam: ATRAUMATIC, NORMAL INSPECTION, NORMOCEPHALIC - Eye Exam Eye Exam: EOMI, Normal appearance, PERRL. absent: Periorbital tenderness Pupil Exam: NORMAL ACCOMODATION, PERRL - ENT Exam ENT Exam: Mucous Membranes Moist - Respiratory Exam Respiratory Exam: Clear to PA & Lateral, NORMAL BREATHING PATTERN, UNREMARKABLE. absent: Rales, Respiratory Distress, Stridor - Cardiovascular Exam Cardiovascular Exam: REGULAR RHYTHM, +S1, +S2. absent: RRR, Rubs - GI/Abdominal Exam GI & Abdominal Exam: Normal Bowel Sounds, Tenderness, Unremarkable - Extremities Exam Extremities exam: full ROM - Back Exam Back exam: NORMAL INSPECTION. absent: CVA tenderness (L), CVA tenderness (R), paraspinal tenderness - Neurological Exam Neurological exam: Alert, CN II-XII Intact, Normal Gait, Oriented x3, Reflexes Normal - Psychiatric Exam Psychiatric exam: Normal Affect, Normal Mood - Skin Skin Exam: Dry, Intact, Normal Color Discharge Plan - Follow Up Plan Condition: GOOD Disposition: HOME/ ROUTINE Instructions: Gastrointestinal Bleeding (DC), Gastroesophageal Reflux Disease ( DC) Additional Instructions: Patient should follow up with PMD within one week of discharge. Patient should follow up with training associate and GI within one week of discharge. Patient should return to emergency department for any new or worsening symptoms. Referrals: Nick Jones MD [Primary Care Provider] - Delroy Hill MD [Staff Provider] - <Valentine Villafuerte - Last Filed: 04/17/17 09:12> Provider - Provider Date of Admission: 04/14/17 23:14 Attending physician: Filiberto Marquez MD Primary care physician: Nick Jones MD Hospital Course - Lab Results Lab Results: Most Recent Lab Values WBC 4.0 10^3/ul (4.5-11.0) L 04/16/17 08:00 RBC 3.92 10^6/uL (3.5-6.1) 04/16/17 08:00 Hgb 9.1 g/dL (12.0-16.0) L 04/16/17 08:00 Hct 30.0 % (36.0-48.0) L 04/16/17 08:00 MCV 76.5 fl (80.0-105.0) L 04/16/17 08:00 MCH 23.2 pg (25.0-35.0) L 04/16/17 08:00 MCHC 30.3 g/dl (31.0-37.0) L 04/16/17 08:00 RDW 17.4 % (11.5-14.5) H 04/16/17 08:00 Plt Count 284 10^3/uL (120.0-450.0) 04/16/17 08:00 MPV 8.3 fl (7.0-11.0) 04/16/17 08:00 Gran % 57.9 % (50.0-68.0) 04/16/17 08:00 Lymph % (Auto) 33.9 % (22.0-35.0) 04/16/17 08:00 Harding % (Auto) 6.6 % (1.0-6.0) H 04/16/17 08:00 Eos % (Auto) 1.3 % (1.5-5.0) L 04/16/17 08:00 Baso % (Auto) 0.3 % (0.0-3.0) 04/16/17 08:00 Gran # 2.29 (1.4-6.5) 04/16/17 08:00 Lymph # 1.3 (1.2-3.4) 04/16/17 08:00 Harding # 0.3 (0.1-0.6) 04/16/17 08:00 Eos # 0.1 (0.0-0.7) 04/16/17 08:00 Baso # 0.01 K/mm3 (0.0-2.0) 04/16/17 08:00 PT 11.3 Seconds (9.9-11.8) 04/14/17 20:57 INR 1.05 (0.93-1.08) 04/14/17 20:57 APTT 27.7 Seconds (23.7-30.8) 04/14/17 20:57 Sodium 139 mmol/L (132-148) 04/16/17 08:00 Potassium 3.9 mmol/L (3.6-5.0) 04/16/17 08:00 Chloride 110 mmol/L (98-107) H 04/16/17 08:00 Carbon Dioxide 24 mmol/L (21-33) 04/16/17 08:00 Anion Gap 9 (10-20) L 04/16/17 08:00 BUN 4 mg/dL (7-21) L 04/16/17 08:00 Creatinine 0.6 mg/dL (0.5-1.4) 04/16/17 08:00 Est GFR ( Amer) > 60 04/16/17 08:00 Est GFR (Non-Af Amer) > 60 04/16/17 08:00 POC Glucose (mg/dL) 156 mg/dL (65-110) H 04/16/17 11:24 Random Glucose 90 mg/dL (70-110) 04/16/17 08:00 Calcium 8.1 mg/dL (8.4-10.5) L 04/16/17 08:00 Phosphorus 3.8 mg/dL (2.5-4.5) 04/15/17 07:30 Magnesium 1.9 mg/dL (1.7-2.2) 04/15/17 07:30 Total Bilirubin 0.3 mg/dL (0.2-1.3) 04/16/17 08:00 AST 14 U/L (14-36) 04/16/17 08:00 ALT 18 U/L (7-56) 04/16/17 08:00 Alkaline Phosphatase 50 U/L (38-126) 04/16/17 08:00 Lactate Dehydrogenase 482 U/L (333-699) 04/14/17 20:57 Total Creatine Kinase 166 U/L (35-230) 04/14/17 20:57 Troponin I < 0.01 ng/mL 04/14/17 20:57 Total Protein 5.6 g/dL (5.8-8.3) L 04/16/17 08:00 Albumin 3.0 g/dL (3.0-4.8) 04/16/17 08:00 Globulin 2.6 gm/dL 04/16/17 08:00 Albumin/Globulin Ratio 1.2 (1.1-1.8) 04/16/17 08:00 Amylase 62 U/L (35-125) 04/14/17 20:57 Lipase 67 U/L (23-300) 04/14/17 20:57 Blood Type O POSITIVE 04/14/17 20:57 Antibody Screen Negative 04/14/17 20:57 BBK History Checked Patient has bt 04/14/17 20:57 Attending/Attestation - Attestation I have personally seen and examined this patient.: Yes I have fully participated in the care of the patient.: Yes I have reviewed all pertinent clinical information, including history, physical exam and plan: Yes Notes (Text): 04/16/17 41 year old female with past medical history of diabetes, hypertension, anemia, gastritis and esophagitis with recent EGD showing esophageal ulcers and esophagitis presented with complaint of dark stools and weakness. She admitted to not filling her scripts (iron supplementation and protonix) for several days after discharge. She was found to have anemia around 8 close to baseline. She was treated with protonix and iv iron. Her symptoms improved. She was seen by GI who agreed with above and recommended outpatient follow up. Medication compliance was emphasized to the patient. Patient is discharged home to follow up with pmd. Follow up with GI and aircraft maintenance instructor. Valentine Villafuerte MD Hospitalist.
[2017-04-17] MEDS ORDERED: Multivitamin Therapeutic Tab PO SCH (10:00)
[2017-04-17] MEDS ORDERED: Pantoprazole 40 mg EC Tab PO SCH (10:00)
[2017-04-17] MEDS ORDERED: POLYETHYLENE GLYCOL 3350 17 GM/Dose PACKET PO SCH (10:00)
== END 2017-04-16 14:50 | disposition home or self-care (01) ==
LOC: ED 19:38 → ERH 23:14 → 3RSO 04-15 02:26
PROVIDERS: ADMIT Hospitalist; ATTEND Hospitalist
DX: K92.1 Melena (principal); K21.0 Gastro-esophageal reflux disease with esophagitis; D64.9 Anemia, unspecified; K22.10 Ulcer of esophagus without bleeding; J45.909 Unspecified asthma, uncomplicated; I10 Essential (primary) hypertension; E11.9 Type 2 diabetes mellitus without complications; K29.70 Gastritis, unspecified, without bleeding; F17.210 Nicotine dependence, cigarettes, uncomplicated; Z79.84 Long term (current) use of oral hypoglycemic drugs; Z98.84 Bariatric surgery status; Z91.14 Patient's other noncompliance with medication regimen
CPT/HCPCS: 36415; 71010; 80053; 82150; 82550; 82948; 83615; 83690; 83735; 84100; 84484; 85025; 85610; 85730; 86850; 86900; 93005; 96365; 96366; 96367; 96375; 96376; 99283; C9113; G0378; J1756; J7040

== ENCOUNTER 2017-07-23 11:18 | Emergency (ER) | payer OTHER ==
[2017-07-23 11:18] VITALS: BMI 36.8
[2017-07-23 11:35] VITALS: RESP 16; TEMP 98.5
[2017-07-23] MEDS ORDERED: Morphine 4 mg/ml ISec IVP STA (11:51)
[2017-07-23] MEDS ORDERED: Sodium Chloride 0.9% 500 ML IV STA (11:51)
--- NOTE | 2017-07-23 12:06 | ED PDOC ---
Arrival/HPI - General Chief Complaint: Dizziness/Lightheaded Time Seen by Provider: 07/23/17 11:49 Historian: Patient - History of Present Illness Narrative History of Present Illness (Text): 07/23/17 11:49 A 41 year old female, whose past medical history includes anemia, abdominal ulcer, hiatal hernia repair, tubal ligation, 2 c-sections, and gastric sleeve, presents to the emergency department complaining of intermittent upper abdominal pain for 1.5 weeks. Patient reports her pain worsened today causing her to come in for further evaluation. Patient also reports mild dizziness/ lightheadedness, which she has been experiencing throughout her menstrual period over the past 5 days. Patient reports she was recently admitted twice for similar complaints (03/2017 and 04/2017). She also reports recently completing a course of antibiotics for an upper respiratory infection. Patient notes diarrhea but denies any fever, chills, nausea, vomiting, back pain, chest pain, shortness of breath or any other complaints. pt states abd pain is 6-7/10 , non-radiating; pt with poor appetite, no weight changes noted, no black/ bloody stool; pt during her last admission received blood transfusion as well as ENDO/Colonoscopy; pt is here for further eval; pt's without other complaints. PMD: Dr. Carrera Observer [employer]: Dr. Anthony 07/23/17 12:49 Time/Duration: Other (1.5 weeks) Symptom Onset: Gradual Symptom Course: Unchanged, Intermittent Quality: Other Severity Level: Severe Context: Home, Work Past Medical History - Provider Review Nursing Documentation Reviewed: Yes - Travel History Have you recently traveled outside [place] w/in the past 3 mons?: No - Infectious Disease Hx of Infectious Diseases: None - Tetanus Immunization Tetanus Immunization: Unknown - Cardiac Hx Cardiac Disorders: Yes Hx Hypertension: Yes - Pulmonary Hx Respiratory Disorders: Yes Hx Asthma: Yes Hx Bronchitis: Yes Hx Sleep Apnea: Yes - Neurological Hx Neurological Disorder: No - HEENT Hx HEENT Disorder: No - Renal Hx Renal Disorder: No - Endocrine/Metabolic Hx Endocrine Disorders: Yes Hx Diabetes Mellitus Type 2: Yes (diet controlled) - Hematological/Oncological Hx Blood Disorders: Yes (H/O GI BLEED) Hx Anemia: Yes (with iron transfusions) Hx Blood Transfusions: Yes Hx Blood Transfusion Reaction: No - Integumentary Hx Dermatological Disorder: No - Musculoskeletal/Rheumatological Hx Musculoskeletal Disorders: Yes (RADICULOPATHY) Hx Falls: No Hx Fractures: Yes (ORIF right wrist ) - Gastrointestinal Hx Gastrointestinal Disorders: Yes (gastritis, esophageal polyp, colon polyp, GI bleed) Hx Gastroesophageal Reflux: Yes Other/Comment: GASTRIC SLEEVE - Genitourinary/Gynecological Hx Genitourinary Disorders: Yes (C SECTION,TUBAL LIGATION) - Psychiatric Hx Psychophysiologic Disorder: No Hx Substance Use: No - Past Surgical History Past Surgical History: Non-Contributing - Surgical History Hx Gastric Bypass Surgery: Yes (gastric sleeve 2013) Hx Orthopedic Surgery: Yes (right wrist ORIF ) Other/Comment: Hiatal hernia Sx - Anesthesia Hx Anesthesia: Yes Hx Anesthesia Reactions: No Hx Malignant Hyperthermia: No - Suicidal Assessment Feels Threatened In Home Enviroment: No Family/Social History - Physician Review Nursing Documentation Reviewed: Yes Family/Social History: No Known Family HX Smoking Status: Light Smoker < 10 Cigarettes Daily Hx Alcohol Use: Yes Frequency of alcohol use: Socially Hx Substance Use: No Hx Substance Use Treatment: No Allergies/Home Meds Allergies/Adverse Reactions: Allergies morphine Allergy (Mild, Verified 07/23/17 11:30) RASH shellfish derived Allergy (Mild, Verified 07/23/17 11:30) RASH hydromorphone [From Dilaudid] Allergy (Verified 07/23/17 11:30) RASH ondansetron [From Zofran (as hydrochloride)] Allergy (Verified 07/23/17 11:30) RASH seafood Allergy (Severe, Uncoded 07/23/17 11:30) URTICARIA dust Allergy (Uncoded 07/23/17 11:30) ITCHING Home Medications: Home Meds Medication Instructions Recorded Confirmed Montelukast Sodium [Singulair] 10 mg PO DAILY 08/25/16 07/23/17 Omeprazole 40 mg PO DAILY 11/05/16 07/23/17 Review of Systems - Physician Review All systems were reviewed & negative as marked: Yes - Review of Systems Constitutional: absent: Fevers, Night Sweats Respiratory: absent: SOB Cardiovascular: absent: Chest Pain Gastrointestinal: Abdominal Pain (upper abdomen), Diarrhea. absent: Nausea, Vomiting Musculoskeletal: absent: Back Pain Neurological: Dizziness Physical Exam Vital Signs Reviewed: Yes (WNL) Vital Signs Temp Pulse Resp BP Pulse Ox 07/23/17 13:36 82 16 118/74 99 07/23/17 11:34 98.5 F 70 16 111/79 98 Temperature: Afebrile Blood Pressure: Normal Pulse: Regular Respiratory Rate: Normal Appearance: Positive for: Well-Appearing, Non-Toxic, Other (uncomfortable, resting in bed, alert/awake, GCS = 15, oriented x 3; mild distress due to pain) Pain Distress: Mild Mental Status: Positive for: Alert and Oriented X 3 - Systems Exam Head: Present: Atraumatic, Normocephalic Pupils: Present: PERRL, Other (no nystagmus, no photophobia, sclera anicteric) Extroacular Muscles: Present: EOMI Conjunctiva: Present: Other (mild pale sclear; no lesions/ulcerations noted) Ears: Present: Normal Mouth: Present: Moist Mucous Membranes, Normal Teeth, Other (uvula/tongue are midline, no exudate/lesions, no drooling/stridor) Pharnyx: Present: Normal Nose (External): Present: Atraumatic Neck: Present: Normal Range of Motion, Trachea Midline. No: MIDLINE TENDERNESS Respiratory/Chest: Present: Clear to Auscultation, Good Air Exchange, Other (no w/r/r, no accessory muscle use noted). No: Respiratory Distress, Accessory Muscle Use Cardiovascular: Present: Regular Rate and Rhythm, Normal S1, S2. No: Murmurs Abdomen: Present: Tenderness, Normal Bowel Sounds, Other (+ mid epigastric tenderness, no johnston's sign, no mcburney's point tenderness, no guarding/ rigidity/masses). No: Distention, Peritoneal Signs Back: Present: Normal Inspection, Other (no gross deformities). No: CVA Tenderness Upper Extremity: Present: Normal Inspection, Normal ROM, NORMAL PULSES, Neurovascularly Intact. No: Cyanosis, Edema Lower Extremity: Present: Normal Inspection, NORMAL PULSES, Neurovascularly Intact, Capillary Refill < 2 s. No: Edema Neurological: Present: GCS=15, CN II-XII Intact, Speech Normal Skin: Present: Warm, Dry, Other (slight pallor, cap refill < 1 sec, no ulcerations, no petechiae). No: Rashes Psychiatric: Present: Alert, Oriented x 3, Normal Insight, Normal Concentration Medical Decision Making ED Course and Treatment: 07/23/17 11:49 Impression: A 41 year old female with upper abdominal pain. She also notes dizziness throughout menstrual cycle. I have considered all differential diagnoses regarding patients chief medical complaints/clincal findings which include but are not limited to: Abdominal pathology i.e. Pancreatitis vs. Unlikely biliary colic vs. Acute gastritis, Anemia vs. Unlikely ACS but will rule out vs. Infectious cause Plan: -- Chest xray -- EKG -- type and screen -- Labs -- Pepcid, Reglan, Morphine and IV fluids -- Reassess and disposition Prior Visits: Notes and results from previous visits were reviewed. Patient last seen in the ED on 04/15/17 and hospitalized for GERD (gastroesophageal reflux disease), Anemia, and Gastrointestinal bleeding. Progress Notes: 07/23/17 12:43 07/23/17 14:11 pt felt much improved after medications pt tolerated po trial pt is made aware of her medical results pt is encouraged fluid hydration pt is encouraged bland diet pt is encouraged Smoking cessation pt will f/u as directed pt will be discharged home Re-evaluation Time: 14:11 Reassessment Condition: Improved - Lab Interpretations Lab Results: 07/23/17 12:40 07/23/17 12:40 Lab Results 07/23/17 12:40: Blood Type O POSITIVE, Antibody Screen Negative, BBK History Checked Patient has bt 07/23/17 12:40: Sodium 140, Potassium 4.2, Chloride 107, Carbon Dioxide 26, Anion Gap 12, BUN 10, Creatinine 0.6 L, Est GFR ( Amer) > 60, Est GFR ( Non-Af Amer) > 60, Random Glucose 94, Calcium 8.8, Total Bilirubin 0.2, AST 19, ALT 20, Alkaline Phosphatase 57, Total Protein 6.5, Albumin 3.7, Globulin 2.9, Albumin/Globulin Ratio 1.3, Lipase 79 07/23/17 12:40: PT 12.0, INR 1.04, APTT 34.3 07/23/17 12:40: WBC 3.9 L, RBC 3.74, Hgb 11.1 L D, Hct 33.9 L, MCV 90.6 D, MCH 29.7, MCHC 32.7, RDW 16.6 H, Plt Count 255, MPV 9.0, Gran % 48.0 L, Lymph % ( Auto) 43.5 H, [place] % (Auto) 5.9, Eos % (Auto) 2.3, Baso % (Auto) 0.3, Gran # 1.88, Lymph # 1.7, [place] # 0.2, Eos # 0.1, Baso # 0.01 WNL I have reviewed the lab results: Yes Interpretation: All labs normal - RAD Interpretation Narrative RAD Interpretations (Text): Report Date : 07/23/2017 13:17:43 Procedure: Chest xray Dictator : Jordon Pitt MD IMPRESSION: No active disease. Radiology Orders: 07/23/17 11:53 CHEST TWO VIEWS (PA/LAT) [RAD] Stat TECHNIQUE: Chest PA and lateral FINDINGS: LUNGS: No active pulmonary disease. PLEURA: No significant pleural effusion identified. No pneumothorax apparent. CARDIOVASCULAR: Normal. OSSEOUS STRUCTURES: No significant abnormalities. VISUALIZED UPPER ABDOMEN: Normal. OTHER FINDINGS: None. IMPRESSION: No active disease. Criminology Professor: Radiologist - EKG Interpretation EKG Interpretation (Text): 07/23/17 12:52 SR at 60 bpm, with borderline 1st degree av block, normal axis, no ectopy, qs in leads III, biphasic T in leads V1-3/III, diffuse low voltage, no st changes, ABNL EKG; unchanged compare with old ekg 03/201707/23/17 12:57 Interpreted by ED Physician: Yes Type: 12 lead EKG Comparison: Similar to previous EKG - Medication Orders Current Medication Orders: Discontinued Medications Al Hydrox/Mg Hydrox/Simethicone (Maalox Plus 30 Ml) 30 ml PO STAT STA Stop: 07/23/17 12:32 Last Admin: 07/23/17 13:26 Dose: 30 ml Belladonna/Phenobarbital ( Elixir) 5 ml PO STAT STA Stop: 07/23/17 12:32 Last Admin: 07/23/17 13:03 Dose: 5 ml Famotidine (Pepcid) 20 mg IVP STAT STA Stop: 07/23/17 11:52 Last Admin: 07/23/17 13:05 Dose: 20 mg IVP Administration Document 07/23/17 13:05 MS (Rec: 07/23/17 13:05 MS [facility]) Charges for Administration # of IVP Administrations 1 Sodium Chloride (Sodium Chloride 0.9%) 500 mls @ 1,000 mls/hr IV .Q30M STA Stop: 07/23/17 12:20 Last Admin: 07/23/17 12:36 Dose: 1,000 mls/hr eMAR Start Stop Document 07/23/17 12:36 MS (Rec: 07/23/17 12:36 [facility] Intravenous Solution Start Date 07/23/17 Start Time 12:36 End Date 07/23/17 End time 13:06 Total Infusion Time 30 Lidocaine HCl (Lidocaine 2% Viscous) 15 ml MM STAT STA Stop: 07/23/17 12:32 Last Admin: 07/23/17 13:04 Dose: 15 ml Metoclopramide HCl (Reglan) 10 mg IVP STAT STA Stop: 07/23/17 11:52 Last Admin: 07/23/17 13:05 Dose: 10 mg IVP Administration Document 07/23/17 13:05 MS (Rec: 07/23/17 13:05 MS [facility]) Charges for Administration # of IVP Administrations 1 - Scribe Statement The provider has reviewed the documentation as recorded by the Kermit Galarza Provider Scribe Attestation: All medical record entries made by the Scribe were at my direction and personally dictated by me. I have reviewed the chart and agree that the record accurately reflects my personal performance of the history, physical exam, medical decision making, and the department course for this patient. I have also personally directed, reviewed, and agree with the discharge instructions and disposition. Disposition/Present on Arrival - Present on Arrival Any Indicators Present on Arrival: No History of DVT/PE: No History of Uncontrolled Diabetes: No Urinary Catheter: No History of Decub. Ulcer: No History Surgical Site Infection Following: None - Disposition Have Diagnosis and Disposition been Completed?: Yes Diagnosis: Epigastric pain, Acute gastritis, Lightheadedness Disposition: HOME/ ROUTINE Disposition Time: 13:56 Patient Plan: Discharge Patient Problems: Current Active Problems Problem Status Onset Epigastric pain Acute Acute gastritis Acute Lightheadedness Acute Condition: STABLE Discharge Instructions (ExitCare): Gastritis (ED), Vomiting in Children (ED), Lightheadedness (ED) Print Language: MARTINIQUAIS Additional Instructions: Make sure to see your doctor in 1-2 days DRINK PLENTY OF FLUIDS STOP SMOKING take your medications as prescribed RETURN TO ED IF worse pain, cant breath, persistent vomiting, high fever >101- 102 for hours, altered behavior, unable to urinate, heavy/persistent bleeding, passing out, chest pain, or other medical emergencies Prescriptions: Aluminum Hydroxide/Magnesium H [Maalox 30 ml] 30 ml PO Q6H #200 ml Atropine/Hyoscyamine [ Elixir] 5 ml PO TID #100 ml Lidocaine 2% Viscous 10 ml MM TID #100 ml Ondansetron ODT [Zofran ODT] 4 mg PO TID #8 odt Referrals: Tom Bar MD [Primary Care Provider] - Follow up with primary Forms: [facility] (Vietnamese), WORK NOTE
[2017-07-23] MEDS ORDERED: Atrop/Hyosc/Scopal/PB Elixir (120 ml) PO STA (12:31)
[2017-07-23] MEDS ORDERED: Alum-Mag Hydrox-Simethicone Susp (30 mL) PO STA (12:31)
[2017-07-23 12:57] LABS: BASO # 0.01 K/mm3 (0.0-2.0); BASO % 0.3 % (0.0-3.0); EOS # 0.1 (0.0-0.7); EOS % 2.3 % (1.5-5.0); GRAN # 1.88 (1.4-6.5); HEMOGLOBIN 11.1 g/dL (12.0-16.0); LYMPH # 1.7 (1.2-3.4); LYMPH % 43.5 % (22.0-35.0); MEAN CELL VOLUME 90.6 fl (80.0-105.0); MEAN CORPUSCULAR HEMOGLOBIN 29.7 pg (25.0-35.0); MEAN CORPUSCULAR HGB CONC 32.7 g/dl (31.0-37.0); MONO # 0.2 (0.1-0.6); MONO % 5.9 % (1.0-6.0); RBC 3.74 10^6/uL (3.5-6.1); RED CELL DISTRIBUTION WIDTH 16.6 % (11.5-14.5); WHITE BLOOD COUNT 3.9 10^3/ul (4.5-11.0)
[2017-07-23 13:05] LABS: ALB/GLOB RATIO 1.3 (1.1-1.8); ALBUMIN 3.7 g/dL (3.0-4.8); ALT/SGPT 20 U/L (7-56); AST/SGOT 19 U/L (14-36); BLOOD UREA NITROGEN 10 mg/dL (7-21); CALCIUM 8.8 mg/dL (8.4-10.5); GFR AFRICAN-AMERICAN > 60; GFR NON-AFRICAN AMERICAN > 60; LIPASE 79 U/L (23-300)
[2017-07-23 13:11] LABS: INR 1.04 (0.93-1.08); PARTIAL THROMBOPLASTIN TIME 34.3 Seconds (25.1-36.5)
--- NOTE | 2017-07-23 13:19 | RAD ---
HISTORY: epigastric pain COMPARISON: 04/14/2017 TECHNIQUE: Chest PA and lateral FINDINGS: LUNGS: No active pulmonary disease. PLEURA: No significant pleural effusion identified. No pneumothorax apparent. CARDIOVASCULAR: Normal. OSSEOUS STRUCTURES: No significant abnormalities. VISUALIZED UPPER ABDOMEN: Normal. OTHER FINDINGS: None. IMPRESSION: No active disease.
[2017-07-23 13:39] VITALS: BP 118/74; PULSE 82; O2SAT 99
--- NOTE | 2017-07-23 14:34 | CARD ---
APPROVED REPORT EKG Measurement Heart [id number] [place] 202P [id number] <Conclusion> Sinus bradycardia Non Specific ST_T Changes.
== END 2017-07-23 14:30 | disposition home or self-care (01) ==
LOC: ED 11:18
DX: K29.00 Acute gastritis without bleeding (principal); R42 Dizziness and giddiness; I10 Essential (primary) hypertension; E11.9 Type 2 diabetes mellitus without complications; F17.210 Nicotine dependence, cigarettes, uncomplicated; Z98.84 Bariatric surgery status
CPT/HCPCS: 71046; 80053; 83690; 85025; 85610; 85730; 86850; 86900; 93005; 96374; 96375; 99285; J2765; J7040

== ENCOUNTER 2018-01-11 09:28 | Emergency (ER) | payer OTHER ==
[2018-01-11 09:35] VITALS: BMI 36.5
[2018-01-11] MEDS ORDERED: Sodium Chloride 0.9% 1,000 ML IV STA (09:41)
--- NOTE | 2018-01-11 10:08 | ED PDOC ---
Arrival/HPI - General Chief Complaint: GI Problem Time Seen by Provider: 01/11/18 09:38 Historian: Patient - History of Present Illness Narrative History of Present Illness (Text): 01/11/18 10:05 42yr old female with hx of gastric sleeve, GI bleed, anemia presents today with abdominal pain. pt states pain is located along the upper abdomen. pt states the pain is constant and burning. pt states she has had the pain for the past 4 days associated with diarrhea and nausea. no vomiting. no fever/chills. no urinary symptoms. no sick contacts. pt states no medications have been taken for pain. pt denies radiation of pain to the back. Past Medical History - Provider Review Nursing Documentation Reviewed: Yes - Travel History Have you recently traveled outside [place] w/in the past 3 mons?: No - Infectious Disease Hx of Infectious Diseases: None - Tetanus Immunization Tetanus Immunization: Unknown - Cardiac Hx Cardiac Disorders: Yes Hx Hypertension: Yes - Pulmonary Hx Respiratory Disorders: Yes Hx Asthma: Yes Hx Bronchitis: Yes Hx Chronic Obstructive Pulmonary Disease (COPD): No Hx Sleep Apnea: Yes - Neurological Hx Neurological Disorder: Yes Hx Migraine: Yes - HEENT Hx HEENT Disorder: No - Renal Hx Renal Disorder: No - Endocrine/Metabolic Hx Endocrine Disorders: Yes Hx Diabetes Mellitus Type 2: Yes (diet controlled) - Hematological/Oncological Hx Blood Disorders: Yes Hx Anemia: Yes (with iron transfusions) - Integumentary Hx Dermatological Disorder: No - Musculoskeletal/Rheumatological Hx Musculoskeletal Disorders: Yes Hx Falls: No Hx Fractures: Yes (ORIF right wrist ) - Gastrointestinal Hx Gastrointestinal Disorders: Yes Hx Gastritis: Yes - Genitourinary/Gynecological Hx Genitourinary Disorders: Yes (C SECTION,TUBAL LIGATION) - Psychiatric Hx Psychophysiologic Disorder: No Hx Anxiety: No Hx Bipolar Disorder: No Hx Depression: No Hx Post Traumatic Stress Disorder: No Hx Schizophrenia: No Hx Substance Use: No - Past Surgical History Past Surgical History: Non-Contributing - Surgical History Hx Gastric Bypass Surgery: Yes (gastric sleeve 2013) Hx Orthopedic Surgery: Yes (right wrist ORIF ) Other/Comment: Hiatal hernia Sx - Anesthesia Hx Anesthesia: Yes Hx Anesthesia Reactions: No Hx Malignant Hyperthermia: No - Suicidal Assessment Feels Threatened In Home Enviroment: No Family/Social History - Physician Review Nursing Documentation Reviewed: Yes Family/Social History: Unknown Family HX Smoking Status: Current Some Days Smoker Hx Alcohol Use: No Hx Substance Use: No Hx Substance Use Treatment: No Allergies/Home Meds Allergies/Adverse Reactions: Allergies morphine Allergy (Mild, Verified 10/31/17 20:15) RASH shellfish derived Allergy (Mild, Verified 10/31/17 20:15) RASH hydromorphone [From Dilaudid] Allergy (Verified 10/31/17 20:15) RASH ondansetron [From Zofran (as hydrochloride)] Allergy (Verified 10/31/17 20:15) RASH seafood Allergy (Severe, Uncoded 10/31/17 20:15) URTICARIA dust Allergy (Uncoded 10/31/17 20:15) ITCHING Home Medications: Home Meds Medication Instructions Recorded Confirmed Montelukast Sodium [Singulair] 10 mg PO DAILY 08/25/16 01/11/18 Omeprazole 40 mg PO DAILY 11/05/16 01/11/18 Metoprolol Tartrate [Lopressor] 25 mg PO DAILY 10/31/17 01/11/18 Review of Systems - Review of Systems Constitutional: absent: Fatigue, Fevers Respiratory: absent: SOB, Cough Cardiovascular: absent: Chest Pain, Palpitations Gastrointestinal: Abdominal Pain, Diarrhea, Nausea. absent: Constipation, Vomiting, Hematochezia, Hematemesis Genitourinary Female: absent: Dysuria, Frequency, Hematuria Musculoskeletal: absent: Arthralgias, Back Pain, Neck Pain Skin: absent: Rash, Pruritis Neurological: absent: Headache, Dizziness Psychiatric: absent: Anxiety, Depression Physical Exam Vital Signs Reviewed: Yes Vital Signs Temp Pulse Resp BP Pulse Ox 01/11/18 14:35 98.0 F 64 18 126/71 98 01/11/18 12:30 65 18 128/76 99 01/11/18 11:04 61 18 130/48 L 99 01/11/18 09:29 98.3 F 63 18 130/58 L 100 Temperature: Afebrile Blood Pressure: Normal Pulse: Regular Respiratory Rate: Normal Appearance: Positive for: Well-Appearing, Non-Toxic, Comfortable Pain Distress: None Mental Status: Positive for: Alert and Oriented X 3 - Systems Exam Head: Present: Atraumatic Mouth: Present: Moist Mucous Membranes Neck: Present: Normal Range of Motion Respiratory/Chest: Present: Clear to Auscultation, Good Air Exchange. No: Respiratory Distress, Accessory Muscle Use Cardiovascular: Present: Regular Rate and Rhythm, Normal S1, S2. No: Murmurs Abdomen: Present: Tenderness (ruq/epigastic/luq abd tenderness). No: Distention , Peritoneal Signs, Rebound, Guarding Back: Present: Normal Inspection Upper Extremity: Present: Normal ROM Lower Extremity: Present: Normal ROM Neurological: Present: GCS=15, Speech Normal Skin: Present: Warm, Dry, Normal Color. No: Rashes Psychiatric: Present: Alert, Oriented x 3 Medical Decision Making ED Course and Treatment: 01/11/18 10:10 Patient is nontoxic well appearing with stable vital signs presenting with abdominal pain CBC wnl CMP wnl Lipase wnl EKG: NSR at 63b/m no st elevations, normal axis, normal intervals. cxr; wnl Urinalysis + wbcs, trace trop; wnl CAT scan: FINDINGS: LOWER THORAX: Unremarkable. LIVER: Unremarkable. No gross lesion or ductal dilatation. GALLBLADDER AND BILE DUCTS: Unremarkable. PANCREAS: Unremarkable. No gross lesion or ductal dilatation. SPLEEN: Unremarkable. ADRENALS: Unremarkable. No mass. KIDNEYS AND URETERS: Unremarkable. No hydronephrosis. No solid mass. VASCULATURE: Unremarkable. No aortic aneurysm. BOWEL: Unremarkable. No obstruction. No gross mural thickening. APPENDIX: Unremarkable. Normal appendix. PERITONEUM: Unremarkable. No free fluid. No free air. LYMPH NODES: Unremarkable. No enlarged lymph nodes. BLADDER: Unremarkable. REPRODUCTIVE: Unremarkable. 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 OTHER FINDINGS: Status post cast surgery. . 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 Status post gastric surgery. Otherwise unremarkable exam. Patient reassessment:pt feeling much better after protonix. denies pain; will d/ c home to f/u with GI and PMD. advised immediate return if symptoms worsen, persist or if new symptoms develop. Discussed all results with patient in depth Patient verbalizes understanding of discharge instructions and need for immediate followup. all aspects of this case were discussed the attending of record. Impression: Abdominal pain, UTI continue protonix daily as prescribed keflex; 1 tablet twice daily x 7 days Increase fluids Follow up with the primary care physician within the next 2 days follow up with the GI specialist within the next 2 days Return immediately if symptoms worsen, persist or if new symptoms develop. Reassessment Condition: Re-examined, Improved - Lab Interpretations Lab Results: 01/11/18 10:34 01/11/18 10:34 Lab Results 01/11/18 13:15: Lactate Dehydrogenase 436, Total Creatine Kinase 106, Troponin I < 0.01 01/11/18 10:34: WBC 3.4 L, RBC 3.73, Hgb 9.7 L, Hct 30.5 L, MCV 81.8 D, MCH 26.0, MCHC 31.8, RDW 14.7 H, Plt Count 282, MPV 8.5, Gran % 47.5 L, Lymph % ( Auto) 41.9 H, [place] % (Auto) 6.5 H, Eos % (Auto) 3.8, Baso % (Auto) 0.3, Gran # 1.62, Lymph # (Auto) 1.4, [place] # (Auto) 0.2, Eos # (Auto) 0.1, Baso # (Auto) 0.01 01/11/18 10:34: Sodium 142, Potassium 3.8, Chloride 108 H, Carbon Dioxide 25, Anion Gap 13, BUN 7, Creatinine 0.6 L, Est GFR ( Amer) > 60, Est GFR (Non -Af Amer) > 60, Random Glucose 96, Calcium 8.6, Total Bilirubin 0.5, AST 15, ALT 23, Alkaline Phosphatase 48, Total Protein 6.4, Albumin 3.3, Globulin 3.1, Albumin/Globulin Ratio 1.1, Lipase 49 01/11/18 10:34: Urine Color Yellow, Urine Appearance Clear, Urine pH 6.5, Ur Specific [place] 1.025, Urine Protein Trace H, Urine Glucose (UA) Negative, Urine Ketones Negative, Urine Blood Moderate H, Urine Nitrate Negative, Urine Bilirubin Negative, Urine Urobilinogen 1.0 H, Ur Leukocyte Esterase Small H, Urine RBC 0 - 2, Urine WBC 25 - 30, Ur Epithelial Cells 4 - 5, Urine Bacteria Trace - RAD Interpretation Radiology Orders: 01/11/18 09:52 ABD & PELVIS IV CONTRAST ONLY [CT] Stat 01/11/18 10:10 CHEST PORTABLE [RAD] Stat - Medication Orders Current Medication Orders: Discontinued Medications Sodium Chloride (Sodium Chloride 0.9%) 1,000 mls @ 999 mls/hr IV .Q1H1M STA Stop: 06/25/18 10:41 Last Admin: 01/11/18 10:16 Dose: 999 mls/hr eMAR Start Stop Document 01/11/18 10:16 EQ (Rec: 01/11/18 10:16 EQ [email or web address]) Intravenous Solution Start Date 01/11/18 Start Time 10:16 Pantoprazole Sodium (Protonix Inj) 40 mg IVP STAT STA Stop: 01/11/18 09:53 Last Admin: 01/11/18 10:13 Dose: 40 mg IVP Administration Document 01/11/18 10:13 EQ (Rec: 01/11/18 10:14 EQ [facility]) Charges for Administration # of IVP Administrations 1 Disposition/Present on Arrival - Present on Arrival Any Indicators Present on Arrival: Yes History of DVT/PE: No History of Uncontrolled Diabetes: No Urinary Catheter: No History of Decub. Ulcer: No History Surgical Site Infection Following: None - Disposition Have Diagnosis and Disposition been Completed?: Yes Diagnosis: Abdominal pain, UTI (urinary tract infection) Disposition: HOME/ ROUTINE Disposition Time: 14:22 Patient Plan: Discharge Patient Problems: Current Active Problems Problem Status Onset Abdominal pain Acute UTI (urinary tract infection) Acute Condition: GOOD Discharge Instructions (ExitCare): Urinary Tract Infections in Adults, Acute Abdomen (Belly Pain), Adult (DC) Additional Instructions: continue protonix daily as prescribed keflex; 1 tablet twice daily x 7 days Increase fluids Follow up with the primary care physician within the next 2 days follow up with the GI specialist within the next 2 days Return immediately if symptoms worsen, persist or if new symptoms develop. Prescriptions: Cephalexin [Keflex] 500 mg PO BID #14 capsule Pantoprazole [Protonix] 40 mg PO DAILY #20 tab Referrals: Nitesh Moran MD [Staff Provider] - Follow up with primary Matteo Avalos MD [Staff Provider] - Follow up with primary Forms: [facility] (Kinyarwanda), WORK NOTE
[2018-01-11 10:42] LABS: BASO # 0.01 K/mm3 (0.0-2.0); BASO % 0.3 % (0.0-3.0); EOS # 0.1 (0.0-0.7); EOS % 3.8 % (1.5-5.0); GRAN # 1.62 (1.4-6.5); GRAN % 47.5 % (50.0-68.0); HEMOGLOBIN 9.7 g/dL (12.0-16.0); LYMPH # 1.4 (1.2-3.4); LYMPH % 41.9 % (22.0-35.0); MEAN CELL VOLUME 81.8 fl (80.0-105.0); MEAN CORPUSCULAR HGB CONC 31.8 g/dl (31.0-37.0); MEAN PLATELET VOLUME 8.5 fl (7.0-11.0); MONO # 0.2 (0.1-0.6); MONO % 6.5 % (1.0-6.0); PH,URINE 6.5 (4.7-8.0); RBC 3.73 10^6/uL (3.5-6.1); RED CELL DISTRIBUTION WIDTH 14.7 % (11.5-14.5); URINE BILIRUBIN NEGATIVE (NEGATIVE); URINE BLOOD MODERATE (NEGATIVE); URINE GLUCOSE (UA) NEGATIVE (NEGATIVE); URINE LEUKOCYTE ESTERASE SMALL Leu/uL (NEGATIVE); URINE PROTEIN TRACE mg/dL (<30 mg/dL); WHITE BLOOD COUNT 3.4 10^3/ul (4.5-11.0)
[2018-01-11 10:43] LABS: URINE APPEARANCE CLEAR (CLEAR); URINE COLOR YELLOW (YELLOW)
[2018-01-11 10:49] LABS: ALB/GLOB RATIO 1.1 (1.1-1.8); ALBUMIN 3.3 g/dL (3.0-4.8); ALT/SGPT 23 U/L (7-56); AST/SGOT 15 U/L (14-36); BLOOD UREA NITROGEN 7 mg/dL (7-21); CALCIUM 8.6 mg/dL (8.4-10.5); GFR AFRICAN-AMERICAN > 60; GFR NON-AFRICAN AMERICAN > 60; LIPASE 49 U/L (23-300)
[2018-01-11 10:51] LABS: URINE BACTERIA TRACE (NEG); URINE RBC 0 - 2 /hpf (0-2); URINE WBC 25 - 30 /hpf (0-6)
[2018-01-11 10:52] VITALS: RESP 18
[2018-01-11] MEDS ORDERED: Iohexol 350 MG/100 ML VIAL ONE (10:57)
--- NOTE | 2018-01-11 11:16 | RAD ---
HISTORY: Abdominal pain COMPARISON: 07/23/2017. FINDINGS: LUNGS: The lungs are well inflated and clear No active pulmonary disease. PLEURA: No significant pleural effusion identified, no pneumothorax apparent. CARDIOVASCULAR: Normal. OSSEOUS STRUCTURES: No significant abnormalities. VISUALIZED UPPER ABDOMEN: Normal. OTHER FINDINGS: None. IMPRESSION: No active pulmonary disease.
--- NOTE | 2018-01-11 12:36 | CT ---
PROCEDURE: CT Abdomen and Pelvis without intravenous contrast HISTORY: abd pain COMPARISON: None. TECHNIQUE: Technique. Contrast dose: Radiation dose: Total exam DLP = mGy-cm. This CT exam was performed using one or more of the following dose reduction techniques: Automated exposure control, adjustment of the mA and/or kV according to patient size, and/or use of iterative reconstruction technique. FINDINGS: LOWER THORAX: Unremarkable. LIVER: Unremarkable. No gross lesion or ductal dilatation. GALLBLADDER AND BILE DUCTS: Unremarkable. PANCREAS: Unremarkable. No gross lesion or ductal dilatation. SPLEEN: Unremarkable. ADRENALS: Unremarkable. No mass. KIDNEYS AND URETERS: Unremarkable. No hydronephrosis. No solid mass. VASCULATURE: Unremarkable. No aortic aneurysm. BOWEL: Unremarkable. No obstruction. No gross mural thickening. APPENDIX: Unremarkable. Normal appendix. PERITONEUM: Unremarkable. No free fluid. No free air. LYMPH NODES: Unremarkable. No enlarged lymph nodes. BLADDER: Unremarkable. REPRODUCTIVE: Unremarkable. 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 OTHER FINDINGS: Status post cast surgery. . 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 Status post gastric surgery. Otherwise unremarkable exam.
[2018-01-11 14:13] LABS: TROPONIN I < 0.01 ng/mL
[2018-01-11 14:35] VITALS: TEMP 98; O2SAT 98
[2018-01-11 20:08] VITALS: BP 129/74; PULSE 87
--- NOTE | 2018-01-11 22:41 | CARD ---
APPROVED REPORT EKG Measurement Heart [id number] <Conclusion> Normal sinus rhythm Normal ECG
== END 2018-01-11 15:30 | disposition home or self-care (01) ==
LOC: ED 09:28
DX: N39.0 Urinary tract infection, site not specified (principal); R10.9 Unspecified abdominal pain; I10 Essential (primary) hypertension; E11.9 Type 2 diabetes mellitus without complications
CPT/HCPCS: 71045; 74177; 80053; 81001; 82550; 83615; 83690; 84484; 85025; 87086; 93005; 96374; 99284; C9113; J7030; Q9967

== ENCOUNTER 2018-04-30 01:20 | Emergency (ER) | payer OTHER ==
[2018-04-30 01:56] VITALS: RESP 18; TEMP 98.1; BMI 37.4
[2018-04-30] MEDS ORDERED: Sodium Chloride 0.9% 500 ML IV STA (02:05)
--- NOTE | 2018-04-30 02:11 | ED PDOC ---
Arrival/HPI - General Chief Complaint: Abdominal Pain Time Seen by Provider: 04/30/18 01:42 Historian: Patient - History of Present Illness Narrative History of Present Illness (Text): 04/30/18 02:07 42 year old female, whose past medical history includes anemia, abdominal ulcer, hiatal hernia repair, tubal ligation, 2 c-sections, and gastric sleeve, presents to the emergency department with epigastric abdominal pain, since 2 weeks. Patient states she has been having this pain for a while, and was suppose to see a GI doctor. Patient denies any fevers, chills, headache, dizziness, chest pain, shortness of breath, cough, vomiting, diarrhea, back pain, neck pain, urinary/bowel changes, or any other complaint. Time/Duration: > week (2 weeks) Symptom Course: Unchanged Past Medical History - Provider Review Nursing Documentation Reviewed: Yes - Infectious Disease Hx of Infectious Diseases: None - Tetanus Immunization Tetanus Immunization: Unknown - Cardiac Hx Cardiac Disorders: Yes Hx Hypertension: Yes - Pulmonary Hx Respiratory Disorders: Yes Hx Asthma: Yes Hx Bronchitis: Yes Hx Chronic Obstructive Pulmonary Disease (COPD): No Hx Sleep Apnea: Yes - Neurological Hx Neurological Disorder: Yes Hx Migraine: Yes - HEENT Hx HEENT Disorder: No - Renal Hx Renal Disorder: No - Endocrine/Metabolic Hx Endocrine Disorders: Yes Hx Diabetes Mellitus Type 2: Yes (diet controlled) - Hematological/Oncological Hx Blood Disorders: Yes Hx Anemia: Yes (with iron transfusions) - Integumentary Hx Dermatological Disorder: No - Musculoskeletal/Rheumatological Hx Musculoskeletal Disorders: Yes Hx Falls: No Hx Fractures: Yes (ORIF right wrist ) - Gastrointestinal Hx Gastrointestinal Disorders: Yes Hx Gastritis: Yes Hx Gastrointestinal Ulcer: Yes - Genitourinary/Gynecological Hx Genitourinary Disorders: Yes (C SECTION,TUBAL LIGATION) - Psychiatric Hx Psychophysiologic Disorder: No Hx Anxiety: No Hx Bipolar Disorder: No Hx Depression: No Hx Post Traumatic Stress Disorder: No Hx Schizophrenia: No Hx Substance Use: No - Past Surgical History Past Surgical History: Non-Contributing - Surgical History Hx Gastric Bypass Surgery: Yes (gastric sleeve 2013) Hx Orthopedic Surgery: Yes (right wrist ORIF ) Hx Tubal Ligation: Yes Other/Comment: Hiatal hernia Sx - Anesthesia Hx Anesthesia: Yes Hx Anesthesia Reactions: No Hx Malignant Hyperthermia: No - Suicidal Assessment Feels Threatened In Home Enviroment: No Family/Social History - Physician Review Nursing Documentation Reviewed: Yes Family/Social History: No Known Family HX Smoking Status: Current Some Days Smoker Hx Alcohol Use: No Hx Substance Use: No Hx Substance Use Treatment: No Allergies/Home Meds Allergies/Adverse Reactions: Allergies morphine Allergy (Mild, Verified 04/30/18 02:00) RASH shellfish derived Allergy (Mild, Verified 04/30/18 02:00) RASH hydromorphone [From Dilaudid] Allergy (Verified 04/30/18 02:00) RASH ondansetron [From Zofran (as hydrochloride)] Allergy (Verified 04/30/18 02:00) RASH seafood Allergy (Severe, Uncoded 04/30/18 02:00) URTICARIA dust Allergy (Uncoded 04/30/18 02:00) ITCHING Home Medications: Home Meds Medication Instructions Recorded Confirmed RX: Montelukast Sodium [Singulair] 10 mg PO DAILY 08/25/16 01/11/18 RX: Omeprazole 40 mg PO DAILY 11/05/16 01/11/18 RX: Metoprolol Tartrate [Lopressor] 25 mg PO DAILY 10/31/17 01/11/18 Review of Systems - Physician Review All systems were reviewed & negative as marked: Yes - Review of Systems Constitutional: absent: Fevers, Night Sweats Respiratory: absent: SOB, Cough Cardiovascular: absent: Chest Pain Gastrointestinal: Abdominal Pain. absent: Vomiting Musculoskeletal: absent: Back Pain, Neck Pain Neurological: absent: Headache, Dizziness Physical Exam Vital Signs Reviewed: Yes Vital Signs Temp Pulse Resp BP Pulse Ox 04/30/18 01:56 98.1 F 81 18 120/81 100 Temperature: Afebrile Blood Pressure: Normal Pulse: Regular Respiratory Rate: Normal Appearance: Positive for: Well-Appearing, Non-Toxic, Comfortable Pain Distress: None Mental Status: Positive for: Alert and Oriented X 3 - Systems Exam Head: Present: Atraumatic, Normocephalic Pupils: Present: PERRL Extroacular Muscles: Present: EOMI Conjunctiva: Present: Normal Mouth: Present: Moist Mucous Membranes Neck: Present: Normal Range of Motion Respiratory/Chest: Present: Clear to Auscultation, Good Air Exchange. No: Respiratory Distress, Accessory Muscle Use Cardiovascular: Present: Regular Rate and Rhythm, Normal S1, S2. No: Murmurs Abdomen: Present: Tenderness (Epigastric Tenderness) Back: Present: Normal Inspection Upper Extremity: Present: Normal Inspection. No: Cyanosis, Edema Lower Extremity: Present: Normal Inspection. No: Edema Neurological: Present: GCS=15, CN II-XII Intact, Speech Normal Skin: Present: Warm, Dry, Normal Color. No: Rashes Psychiatric: Present: Alert, Oriented x 3, Normal Insight, Normal Concentration Medical Decision Making ED Course and Treatment: 04/30/18 02:12 Impression: 42 year old female presents with epigastric pain. suspect gastric vs pancreatitis vs pud Plan: -- Labs -- Urinalysis -- Protonix -- Reassess and disposition Prior Visits: Notes and results from previous visits were reviewed. Progress Notes: 04/30/18 03:39 Patient reassessed, and is comfortable. 04/30/18 04:37 Patient's labs are at her baseline. 04/30/18 05:59 pt sleepin gin nad . ct neg. hh baseline no ho of bleeding. advise outpt fu. - Medication Orders Current Medication Orders: Sodium Chloride (Sodium Chloride 0.9%) 500 mls @ 1,000 mls/hr IV .Q30M STA Stop: 04/30/18 02:34 Pantoprazole Sodium (Protonix Inj) 40 mg IVP STAT STA Stop: 04/30/18 02:06 - Scribe Statement The provider has reviewed the documentation as recorded by the Kermit Gonzales Provider Scribe Attestation: All medical record entries made by the Scribjonatan were at my direction and personally dictated by me. I have reviewed the chart and agree that the record accurately reflects my personal performance of the history, physical exam, medical decision making, and the department course for this patient. I have also personally directed, reviewed, and agree with the discharge instructions and disposition. Disposition/Present on Arrival - Present on Arrival Any Indicators Present on Arrival: No History of DVT/PE: No History of Uncontrolled Diabetes: No Urinary Catheter: No History of Decub. Ulcer: No History Surgical Site Infection Following: None - Disposition Have Diagnosis and Disposition been Completed?: Yes Diagnosis: Abdominal pain Disposition: HOME/ ROUTINE Disposition Time: 04:00 Condition: STABLE Discharge Instructions (ExitCare): Acute Abdomen (Belly Pain) Additional Instructions: follow up with your doctor/clinic and specialist. reutrn to er with worsening Prescriptions: Famotidine [Pepcid] 20 mg PO DAILY #20 tab Referrals: Tom Bar MD [Primary Care Provider] - Follow up with primary Forms: [employer] (Greek)
[2018-04-30 02:49] LABS: BASO # 0.01 K/mm3 (0.0-2.0); BASO % 0.2 % (0.0-3.0); EOS % 0.7 % (1.5-5.0); GRAN # 2.82 (1.4-6.5); HEMOGLOBIN 8.4 g/dL (12.0-16.0); LYMPH # 1.1 (1.2-3.4); LYMPH % 26.3 % (22.0-35.0); MEAN CELL VOLUME 77.5 fl (80.0-105.0); MEAN CORPUSCULAR HEMOGLOBIN 23.7 pg (25.0-35.0); MEAN CORPUSCULAR HGB CONC 30.5 g/dl (31.0-37.0); MEAN PLATELET VOLUME 8.2 fl (7.0-11.0); MONO # 0.3 (0.1-0.6); MONO % 7.8 % (1.0-6.0); RBC 3.55 10^6/uL (3.5-6.1); RED CELL DISTRIBUTION WIDTH 17.1 % (11.5-14.5); WHITE BLOOD COUNT 4.3 10^3/ul (4.5-11.0)
[2018-04-30 02:52] LABS: INR 1.1; PARTIAL THROMBOPLASTIN TIME 32.1 Seconds (25.1-36.5); PROTHROMBIN TIME 12.6 SECONDS (9.4-12.5)
[2018-04-30 03:11] LABS: ALB/GLOB RATIO 1.2 (1.1-1.8); ALBUMIN 3.7 g/dL (3.0-4.8); ALT/SGPT 22 U/L (7-56); AST/SGOT 17 U/L (14-36); BLOOD UREA NITROGEN 10 mg/dL (7-21); CALCIUM 8.8 mg/dL (8.4-10.5); GFR NON-AFRICAN AMERICAN > 60; LIPASE 57 U/L (23-300)
[2018-04-30 04:49] VITALS: BP 128/70; PULSE 68; O2SAT 98
--- NOTE | 2018-04-30 08:32 | CT ---
Date of service: 04/30/2018 PROCEDURE: CT Abdomen and Pelvis with contrast HISTORY: upper abd pain COMPARISON: CT abdomen and pelvis with contrast performed 01/11/18 TECHNIQUE: Contrast dose: 150 mL Omnipaque 350 Radiation dose: Total exam DLP = 1115.50 mGy-cm. This CT exam was performed using one or more of the following dose reduction techniques: Automated exposure control, adjustment of the mA and/or kV according to patient size, and/or use of iterative reconstruction technique. FINDINGS: LOWER THORAX: No visible consolidation, pleural effusion, or pneumothorax. LIVER: Unremarkable. GALLBLADDER AND BILE DUCTS: Unremarkable. PANCREAS: Unremarkable. SPLEEN: Unremarkable. ADRENALS: Unremarkable. KIDNEYS AND URETERS: The kidneys enhance symmetrically. No hydronephrosis or obstructing calculus identified. VASCULATURE: No aortic aneurysm. BOWEL: Small to moderate hiatal hernia. Postsurgical gastric changes. Stomach is nondistended. Lack of oral contrast limits evaluation for bowel pathology. Bowel loops appear within normal limits of caliber without evidence of obstruction. Diverticulosis without CT evidence of acute diverticulitis. Moderate constipation. APPENDIX: The appendix appears within normal limits of caliber. No secondary signs of acute appendicitis. PERITONEUM: No significant free fluid. No definite free air. LYMPH NODES: No bulky adenopathy identified. BLADDER: Unremarkable. REPRODUCTIVE: Uterus is present. Probable 1.3 cm right ovarian cyst. 1.9 cm probable left ovarian cyst. Heterogeneity at the level of the cervix. BONES: No acute osseous abnormality is detected. OTHER FINDINGS: Small fat containing umbilical hernia. IMPRESSION: Diverticulosis without CT evidence of acute diverticulitis. Moderate constipation. Bilateral probable ovarian cysts. Heterogeneity in the level of the cervix. Suggest follow-up with pelvic ultrasound and Pap smear/pelvic examination. Additional findings as above. Preliminary impression was provided by [employer]. Study marked for PA review.
== END 2018-04-30 04:48 | disposition home or self-care (01) ==
LOC: ED 01:20
DX: R10.9 Unspecified abdominal pain (principal); K57.90 Diverticulosis of intestine, part unspecified, without perforation or abscess without bleeding; K59.00 Constipation, unspecified; I10 Essential (primary) hypertension; E11.9 Type 2 diabetes mellitus without complications; D64.9 Anemia, unspecified; Z98.84 Bariatric surgery status; Z98.51 Tubal ligation status; F17.210 Nicotine dependence, cigarettes, uncomplicated
CPT/HCPCS: 74177; 80053; 83690; 83735; 85025; 85610; 85730; 96374; 99283; C9113; J7040; Q9967

== ENCOUNTER 2018-08-10 08:46 | Observation (INO) | payer OTHER ==
[2018-08-10] MEDS ORDERED: Pantoprazole 40 MG in Sodium Chloride 0.9% 100 ML IV STA (09:18)
[2018-08-10] MEDS ORDERED: Sodium Chloride 0.9% 500 ML IV ONE (09:22)
--- NOTE | 2018-08-10 09:22 | ED PDOC ---
Arrival/HPI - General Chief Complaint: GI Problem Time Seen by Provider: 08/10/18 09:00 Historian: Patient - History of Present Illness Narrative History of Present Illness (Text): 08/10/18 09:21 42 year old female, smoker, whose past medical history includes anemia, hypertension, diabetes, abdominal ulcer, hiatal hernia repair, tubal ligation, 2 c-sections, and gastric sleeve, presents to the emergency department complaining of lower abdominal pain, nausea, and dizziness, for the past 24 hours. Patient also reports black stool for the past 4 days. She denies any genital/ urinary symptoms, fevers, chills, headache, dizziness, chest pain, shortness of breath, dyspnea on exertion, cough, vomiting, diarrhea, back pain, neck pain, or any other complaint. Time/Duration: 24 hours Symptom Onset: Gradual Symptom Course: Unchanged Activities at Onset: Light Context: Home Past Medical History - Provider Review Nursing Documentation Reviewed: Yes - Infectious Disease Hx of Infectious Diseases: None - Tetanus Immunization Tetanus Immunization: Unknown - Cardiac Hx Cardiac Disorders: Yes Hx Hypertension: Yes - Pulmonary Hx Respiratory Disorders: Yes Hx Asthma: Yes Hx Bronchitis: Yes Hx Chronic Obstructive Pulmonary Disease (COPD): No Hx Sleep Apnea: Yes - Neurological Hx Neurological Disorder: Yes Hx Migraine: Yes - HEENT Hx HEENT Disorder: No - Renal Hx Renal Disorder: No - Endocrine/Metabolic Hx Endocrine Disorders: Yes Hx Diabetes Mellitus Type 2: Yes (diet controlled) - Hematological/Oncological Hx Blood Disorders: Yes Hx Anemia: Yes (with iron transfusions) - Integumentary Hx Dermatological Disorder: No - Musculoskeletal/Rheumatological Hx Musculoskeletal Disorders: Yes Hx Falls: No Hx Fractures: Yes (ORIF right wrist ) - Gastrointestinal Hx Gastrointestinal Disorders: Yes Hx Gastritis: Yes Hx Gastrointestinal Ulcer: Yes - Genitourinary/Gynecological Hx Genitourinary Disorders: Yes (C SECTION,TUBAL LIGATION) - Psychiatric Hx Psychophysiologic Disorder: No Hx Anxiety: No Hx Bipolar Disorder: No Hx Depression: No Hx Post Traumatic Stress Disorder: No Hx Schizophrenia: No Hx Substance Use: No - Past Surgical History Past Surgical History: Non-Contributing - Surgical History Hx Gastric Bypass Surgery: Yes (gastric sleeve 2013) Hx Orthopedic Surgery: Yes (right wrist ORIF ) Hx Tubal Ligation: Yes Other/Comment: Hiatal hernia Sx. umbilical hearnia repair - Anesthesia Hx Anesthesia: Yes Hx Anesthesia Reactions: No Hx Malignant Hyperthermia: No - Suicidal Assessment Feels Threatened In Home Enviroment: No Family/Social History - Physician Review Nursing Documentation Reviewed: Yes Family/Social History: No Known Family HX Smoking Status: Heavy Smoker > 10 Cigarettes Daily Hx Alcohol Use: No Hx Substance Use: No Hx Substance Use Treatment: No Allergies/Home Meds Allergies/Adverse Reactions: Allergies morphine Allergy (Mild, Verified 04/30/18 02:00) RASH shellfish derived Allergy (Mild, Verified 04/30/18 02:00) RASH hydromorphone [From Dilaudid] Allergy (Verified 04/30/18 02:00) RASH ondansetron [From Zofran (as hydrochloride)] Allergy (Verified 04/30/18 02:00) RASH seafood Allergy (Severe, Uncoded 04/30/18 02:00) URTICARIA dust Allergy (Uncoded 04/30/18 02:00) ITCHING Home Medications: Home Meds Medication Instructions Recorded Confirmed Montelukast Sodium [Singulair] 10 mg PO DAILY 08/25/16 01/11/18 Omeprazole 40 mg PO DAILY 11/05/16 01/11/18 Metoprolol Tartrate [Lopressor] 25 mg PO DAILY 10/31/17 01/11/18 Review of Systems - Physician Review All systems were reviewed & negative as marked: Yes - Review of Systems Constitutional: Fatigue. absent: Fevers Respiratory: absent: SOB, Cough Cardiovascular: absent: Chest Pain, Palpitations, Syncope Gastrointestinal: Abdominal Pain, Stool Changes (black stool), Nausea. absent: Diarrhea, Vomiting Genitourinary Female: absent: Dysuria, Frequency, Vaginal Bleeding, Vaginal Discharge Musculoskeletal: absent: Back Pain, Neck Pain Neurological: Dizziness. absent: Headache, Focal Weakness Physical Exam Vital Signs Reviewed: Yes Vital Signs Temp Pulse Resp BP Pulse Ox 08/10/18 08:48 98.2 F 79 18 135/97 H 100 Temperature: Afebrile Blood Pressure: Hypertensive Pulse: Regular Respiratory Rate: Normal Appearance: Positive for: Well-Appearing, Non-Toxic, Uncomfortable, Other (obese) Pain Distress: Mild Mental Status: Positive for: Alert and Oriented X 3 - Systems Exam Head: Present: Atraumatic, Normocephalic Pupils: Present: PERRL Extroacular Muscles: Present: EOMI Conjunctiva: Present: Normal Mouth: Present: Moist Mucous Membranes Pharnyx: No: ERYTHEMA, EXUDATE, TONSILS ENLARGED Neck: Present: Normal Range of Motion Respiratory/Chest: Present: Clear to Auscultation, Good Air Exchange. No: Respiratory Distress, Accessory Muscle Use Cardiovascular: Present: Regular Rate and Rhythm, Normal S1, S2. No: Murmurs Abdomen: Present: Tenderness (mild generalized tenderness to the lower abdominal region). No: Distention, Peritoneal Signs, Rebound, Guarding Rectal: Present: Occult Blood (dark, guaic positive ), Normal Rectal Tone. No: Rectal Tenderness, Gross Blood, Hemorrhoids, Fissures, Nodule/Mass/Lesions Back: Present: Normal Inspection Upper Extremity: Present: Normal Inspection. No: Cyanosis, Edema Lower Extremity: Present: Normal Inspection. No: Edema Neurological: Present: GCS=15, CN II-XII Intact, Speech Normal, Motor Func Grossly Intact Skin: Present: Warm, Dry, Normal Color. No: Rashes Psychiatric: Present: Alert, Oriented x 3, Normal Insight, Normal Concentration Medical Decision Making ED Course and Treatment: 08/10/18 09:22 Impression: 42 year old female who presents to the emergency department complaining of lower abdominal pain. Plan: -- BBK -- EKG -- Labs -- Protonix Inj -- IV fluids -- Toradol -- Urinalysis -- Reassess and disposition Prior Visits: Notes and results from previous visits were reviewed. Progress Notes: 08/10/18 10:11 EKG shows normal sinus rhythm rate approximately [address] or T-wave changes. 08/10/18 11:[address] reviewed by radiologist, shows: IMPRESSION: no acute intra-abdominal findings. - Lab Interpretations I have reviewed the lab results: Yes - EKG Interpretation Interpreted by ED Physician: Yes Type: 12 lead EKG - Scribe Statement The provider has reviewed the documentation as recorded by the Kermit Lopez Provider Scribe Attestation: All medical record entries made by the Scribe were at my direction and personally dictated by me. I have reviewed the chart and agree that the record accurately reflects my personal performance of the history, physical exam, medical decision making, and the department course for this patient. I have also personally directed, reviewed, and agree with the discharge instructions and disposition. Disposition/Present on Arrival - Present on Arrival Any Indicators Present on Arrival: No History of DVT/PE: No History of Uncontrolled Diabetes: No Urinary Catheter: No History of Decub. Ulcer: No History Surgical Site Infection Following: None - Disposition Have Diagnosis and Disposition been Completed?: Yes Diagnosis: Gastrointestinal bleeding, Abdominal pain, Anemia Disposition: HOSPITALIZED Disposition Time: 11:31 Patient Plan: Observation Condition: GOOD
[2018-08-10 09:53] LABS: BASO # 0.01 K/mm3 (0.0-2.0); BASO % 0.4 % (0.0-3.0); EOS # 0.1 (0.0-0.7); EOS % 2.6 % (1.5-5.0); GRAN # 1.43 (1.4-6.5); GRAN % 52.9 % (50.0-68.0); HEMOGLOBIN 8.5 g/dL (12.0-16.0); LYMPH % 36.7 % (22.0-35.0); MEAN CELL VOLUME 75.8 fl (80.0-105.0); MEAN CORPUSCULAR HEMOGLOBIN 22.8 pg (25.0-35.0); MEAN CORPUSCULAR HGB CONC 30.1 g/dl (31.0-37.0); MEAN PLATELET VOLUME 8.2 fl (7.0-11.0); MONO # 0.2 (0.1-0.6); MONO % 7.4 % (1.0-6.0); RBC 3.72 10^6/uL (3.5-6.1); RED CELL DISTRIBUTION WIDTH 16.4 % (11.5-14.5); WHITE BLOOD COUNT 2.7 10^3/uL (4.5-11.0)
[2018-08-10 10:04] LABS: ALB/GLOB RATIO 1.2 (1.1-1.8); ALBUMIN 3.8 g/dL (3.0-4.8); ALT/SGPT 24 U/L (7-56); AMYLASE 79 U/L (35-125); AST/SGOT 15 U/L (14-36); BLOOD UREA NITROGEN 8 mg/dL (7-21); CALCIUM 8.7 mg/dL (8.4-10.5); GFR NON-AFRICAN AMERICAN > 60; INR 1.06; LIPASE 75 U/L (23-300); PARTIAL THROMBOPLASTIN TIME 29.5 Seconds (25.1-36.5); PROTHROMBIN TIME 12.2 SECONDS (9.4-12.5)
[2018-08-10 10:11] LABS: URINE BILIRUBIN SMALL (NEGATIVE); URINE BLOOD LARGE (NEGATIVE); URINE GLUCOSE (UA) NEGATIVE (NEGATIVE); URINE LEUKOCYTE ESTERASE MODERATE Leu/uL (NEGATIVE); URINE PROTEIN 100 mg/dL (<30 mg/dL)
[2018-08-10 10:12] LABS: TROPONIN I < 0.01 ng/mL
[2018-08-10 10:13] LABS: URINE APPEARANCE CLOUDY (CLEAR); URINE COLOR DARK YELLOW (YELLOW)
[2018-08-10 10:25] LABS: URINE BACTERIA MANY /hpf; URINE RBC TNTC /hpf (0-2); URINE WBC 20 - 25 /hpf (0-6)
--- NOTE | 2018-08-10 10:43 | CT ---
Date of service: 08/10/2018 PROCEDURE: CT Abdomen and Pelvis without intravenous contrast HISTORY: abd pain/GIB COMPARISON: None. TECHNIQUE: Without contrast.. Contrast dose: Radiation dose: Total exam DLP = 1113.94 mGy-cm. This CT exam was performed using one or more of the following dose reduction techniques: Automated exposure control, adjustment of the mA and/or kV according to patient size, and/or use of iterative reconstruction technique. FINDINGS: LOWER THORAX: Surgical clips and suture line can be seen in the stomach. LIVER: Unremarkable. No gross lesion or ductal dilatation. GALLBLADDER AND BILE DUCTS: Unremarkable. PANCREAS: Unremarkable. No gross lesion or ductal dilatation. SPLEEN: Unremarkable. ADRENALS: Unremarkable. No mass. KIDNEYS AND URETERS: Unremarkable. No hydronephrosis. No solid mass. VASCULATURE: Unremarkable. No aortic aneurysm. No aortic atherosclerotic calcification or mural plaque present. BOWEL: Unremarkable. No obstruction. No gross mural thickening. Mild constipation APPENDIX: Unremarkable. Normal appendix. PERITONEUM: Unremarkable. No free fluid. No free air. LYMPH NODES: Unremarkable. No enlarged lymph nodes. BLADDER: Unremarkable. REPRODUCTIVE: Unremarkable. BONES: No acute fracture. OTHER FINDINGS: None. IMPRESSION: No acute intra-abdominal findings
[2018-08-10] MEDS ORDERED: Albuterol-Ipratrop 3 mg / 0.5 (3 ml) UD IH PRN (11:35)
--- NOTE | 2018-08-10 11:47 | CP.PCM.HP ---
<Oliver Morocho Bladimir - Last Filed: 08/10/18 13:20> History of Present Illness - History of Present Illness History of Present Illness: Oliver Morocho PGY1, History and Physical for Dr Penn Pt is a 42 yo female with a PMH of HTN, DM, GERD, hiatal hernia, esophageal ulcer, and Gastric sleeve who presents to the ED complaining of dizziness, abdominal pain, palpitations, and nausea which started yesterday. Pt denies falling or LOC. Pt states she has been vomiting blood for the past week. She also reports black tarry stool since . Pt states she had an endoscopy 1 year ago at [facility] [place] which showed hiatal hernia. Pt states she has recently felt lethargic and "can fall asleep anytime". Pt states she has also been experiencing vaginal bleeding. The last day of her menstrual period was of last week, she reports vaginal bleeding/spotting which is unusual for her. Pt states she has required 3 pads per day. Pt reports mild abdominal pain with associated dark colored urine, urinary frequency, urgency, blood in the urine, but denies pain/ burning with urination. PMH: HTN, DM, esophageal ulcer, GERD, hiatal hernia, and Gastric sleeve, fatty liver, eczema, asthma PSH: x2, gastric sleeve, tubal ligation FH:Father 80's CHF, prostate cancer, esophageal cancer. Mother 75 living DM "heart problems" HTN SH: Alcohol occasionally, Tobacco 3 cigs/day, Denies illicit drugs Home meds: omeprazole, ferrous sulfate Allergies: Shellfish, swell up. Zofran/morphine, hives. Egg/wheat, swelling. Social Services: [facility] PMD: Yosvayn Present on Admission - Present on Admission Any Indicators Present on Admission: No Review of Systems - Review of Systems Review of Systems: a 12 point ROS was obtained and added to the HPI where appropriate Past Patient History - Infectious Disease Hx of Infectious Diseases: None - Tetanus Immunizations Tetanus Immunization: Unknown - Past Medical History & Family History Past Medical History?: Yes - Past Social History Smoking Status: Heavy Smoker > 10 Cigarettes Daily - CARDIAC Hx Cardiac Disorders: Yes Hx Hypertension: Yes - PULMONARY Hx Respiratory Disorders: Yes Hx Asthma: Yes Hx Bronchitis: Yes Hx Chronic Obstructive Pulmonary Disease (COPD): No Hx Sleep Apnea: Yes - NEUROLOGICAL Hx Neurological Disorder: Yes Hx Migraine: Yes - HEENT Hx HEENT Problems: No - RENAL Hx Chronic Kidney Disease: No - ENDOCRINE/METABOLIC Hx Endocrine Disorders: Yes Hx Diabetes Mellitus Type 2: Yes (diet controlled) - HEMATOLOGICAL/ONCOLOGICAL Hx Blood Disorders: Yes Hx Anemia: Yes (with iron transfusions) - INTEGUMENTARY Hx Dermatological Problems: No - MUSCULOSKELETAL/RHEUMATOLOGICAL Hx Musculoskeletal Disorders: Yes Hx Falls: No Hx Fractures: Yes (ORIF right wrist ) - GASTROINTESTINAL Hx Gastrointestinal Disorders: Yes Hx Gastritis: Yes - GENITOURINARY/GYNECOLOGICAL Hx Genitourinary Disorders: Yes (C SECTION,TUBAL LIGATION) - PSYCHIATRIC Hx Psychophysiologic Disorder: No Hx Anxiety: No Hx Bipolar Disorder: No Hx Depression: No Hx Post Traumatic Stress Disorder: No Hx Schizophrenia: No Hx Substance Use: No - SURGICAL HISTORY Hx Gastric Bypass Surgery: Yes (gastric sleeve 2013) Hx Orthopedic Surgery: Yes (right wrist ORIF ) Hx Tubal Ligation: Yes Other/Comment: Hiatal hernia Sx. umbilical hearnia repair - ANESTHESIA Hx Anesthesia: Yes Hx Anesthesia Reactions: No Hx Malignant Hyperthermia: No Meds Home Medications: Home Medication List Medication Instructions Recorded Confirmed Type Pantoprazole [Protonix EC Tab] 40 mg PO QAM #30 ect 08/11/18 Rx Allergies/Adverse Reactions: Allergies Allergy/AdvReac Type Severity Reaction Status Date / Time morphine Allergy Mild RASH Verified 04/30/18 02:00 shellfish derived Allergy Mild RASH Verified 04/30/18 02:00 hydromorphone [From Dilaudid] Allergy RASH Verified 04/30/18 02:00 ondansetron Allergy RASH Verified 04/30/18 02:00 [From Zofran (as hydrochloride)] seafood Allergy Severe URTICARIA Uncoded 04/30/18 02:00 dust Allergy ITCHING Uncoded 04/30/18 02:00 Physical Exam - Constitutional Appears: In Acute Distress - Head Exam Head Exam: ATRAUMATIC, NORMOCEPHALIC - Eye Exam Eye Exam: EOMI - ENT Exam ENT Exam: Mucous Membranes Moist - Neck Exam Neck exam: Positive for: Full Rom - Respiratory Exam Respiratory Exam: Clear to Auscultation Bilateral, NORMAL BREATHING PATTERN. absent: Accessory Muscle Use, Respiratory Distress - Cardiovascular Exam Cardiovascular Exam: RRR, +S1, +S2. absent: Diastolic murmur, Systolic Murmur - GI/Abdominal Exam GI & Abdominal Exam: Normal Bowel Sounds, Soft - Rectal Exam Additional comments: performed in ED, positive for FOBT - Extremities Exam Extremities exam: Positive for: full ROM, normal inspection, pedal pulses present. Negative for: pedal edema - Neurological Exam Neurological exam: Alert, Oriented x3 - Psychiatric Exam Psychiatric exam: Normal Affect, Normal Mood - Skin Skin Exam: Dry, Intact, Warm Additional comments: eczema on abdomen Results - Vital Signs Recent Vital Signs: Last Vital Signs Temp 98.2 F 08/10/18 08:48 Pulse 79 08/10/18 08:48 Resp 18 08/10/18 08:48 BP 135/97 H 08/10/18 08:48 Pulse Ox 100 08/10/18 08:48 - Labs Result Diagrams: 08/10/18 09:35 08/10/18 09:35 Labs: Laboratory Results - last 24 hr 08/10/18 08/10/18 08/10/18 09:35 09:35 09:35 WBC 2.7 L RBC 3.72 Hgb 8.5 L Hct 28.2 L MCV 75.8 L MCH 22.8 L MCHC 30.1 L RDW 16.4 H Plt Count 318 MPV 8.2 Gran % 52.9 Lymph % (Auto) 36.7 H Simpson % (Auto) 7.4 H Eos % (Auto) 2.6 Baso % (Auto) 0.4 Gran # 1.43 Lymph # (Auto) 1.0 L Simpson # (Auto) 0.2 Eos # (Auto) 0.1 Baso # (Auto) 0.01 PT 12.2 INR 1.06 APTT 29.5 Sodium 141 Potassium 4.1 Chloride 110 H Carbon Dioxide 25 Anion Gap 10 BUN 8 Creatinine 0.6 L Est GFR ( Amer) > 60 Est GFR (Non-Af Amer) > 60 Random Glucose 97 Calcium 8.7 Total Bilirubin 0.2 AST 15 ALT 24 Alkaline Phosphatase 60 Lactate Dehydrogenase 479 Total Creatine Kinase 185 Troponin I < 0.01 Total Protein 6.9 Albumin 3.8 Globulin 3.1 Albumin/Globulin Ratio 1.2 Amylase 79 Lipase 75 Urine Color Urine Appearance Urine pH Ur Specific [place] Urine Protein Urine Glucose (UA) Urine Ketones Urine Blood Urine Nitrate Urine Bilirubin Urine Urobilinogen Ur Leukocyte Esterase Urine RBC Urine WBC Ur Epithelial Cells Urine Bacteria Blood Type Antibody Screen BBK History Checked 08/10/18 08/10/18 09:35 10:00 WBC RBC Hgb Hct MCV MCH MCHC RDW Plt Count MPV Gran % Lymph % (Auto) Simpson % (Auto) Eos % (Auto) Baso % (Auto) Gran # Lymph # (Auto) Simpson # (Auto) Eos # (Auto) Baso # (Auto) PT INR APTT Sodium Potassium Chloride Carbon Dioxide Anion Gap BUN Creatinine Est GFR ( Amer) Est GFR (Non-Af Amer) Random Glucose Calcium Total Bilirubin AST ALT Alkaline Phosphatase Lactate Dehydrogenase Total Creatine Kinase Troponin I Total Protein Albumin Globulin Albumin/Globulin Ratio Amylase Lipase Urine Color Dark yellow Urine Appearance Cloudy Urine pH 6.0 Ur Specific [place] >= 1.030 Urine Protein 100 H Urine Glucose (UA) Negative Urine Ketones Negative Urine Blood Large H Urine Nitrate Positive H Urine Bilirubin Small H Urine Urobilinogen 1.0 H Ur Leukocyte Esterase Moderate H Urine RBC Tntc H Urine WBC 20 - 25 H Ur Epithelial Cells 10 - 12 H Urine Bacteria Many Blood Type O POSITIVE Antibody Screen Negative BBK History Checked Patient has bt Assessment & Plan - Assessment and Plan (Free Text) Assessment: Pt is a 42 yo female with a PMH of HTN, DM, GERD, hiatal hernia, esophageal ulcer, and gastric sleeve who presents to the ED complaining of dizziness, abdominal pain, palpitations, and nausea which started yesterday. Plan: Suspected GI Bleed - BRBPR, FOBT POSITIVE in ED - INR 1.06 - CBC q6h, trend H/H - Hgb 8.5, microcytic, hypochromic - CT abdomen and pelvis: no acute intra abdominal process - GI consulted Dr Marie UTI - positive for blood, nitrates, and LE - Urine culture follow up - start rocephin Vaginal Bleeding - will evaluate tomorrow and possible order abdominal US/ TVUS Chronic Anemia - B12, ferritin, folate, iron, TIBC, follow up History of HTN - has not required medical management since her gastric sleeve - will continue to monitor History of DM - has not required medical management since her gastric sleeve - HA1C follow up - will continue to monitor Ppx - SCD, no chemical DVT ppx due to GI bleed - protonix Pt seen, examined, assessment and plan discussed with Dr Fili Morocho PGY1, Internal Medicine Resident - Date & Time Date: 08/10/18 Time: 12:44 <Monica Penn - Last Filed: 08/11/18 12:38> Results - Vital Signs Recent Vital Signs: Last Vital Signs Temp 98.5 F 08/11/18 06:00 Pulse 66 08/11/18 06:00 Resp 20 08/11/18 06:00 BP 105/74 08/11/18 06:00 Pulse Ox 97 08/11/18 06:00 - Labs Result Diagrams: 08/11/18 05:35 08/11/18 05:35 Labs: Laboratory Results - last 24 hr 08/10/18 08/10/18 08/10/18 09:35 13:46 13:46 WBC RBC Hgb Hct MCV MCH MCHC RDW Plt Count MPV Gran % Lymph % (Auto) Simpson % (Auto) Eos % (Auto) Baso % (Auto) Gran # Lymph # (Auto) Simpson # (Auto) Eos # (Auto) Baso # (Auto) Sodium Potassium Chloride Carbon Dioxide Anion Gap BUN Creatinine Est GFR ( Amer) Est GFR (Non-Af Amer) POC Glucose (mg/dL) Random Glucose Hemoglobin A1c Calcium Magnesium Iron 17 L TIBC 403 % Saturation 4 L Ferritin 4.4 Total Bilirubin AST ALT Alkaline Phosphatase Troponin I Total Protein Albumin Globulin Albumin/Globulin Ratio Vitamin B12 180 L Folate 5.4 Blood Type O POSITIVE Antibody Screen Negative Crossmatch See Detail BBK History Checked Patient has bt 08/10/18 08/10/18 08/10/18 13:46 16:52 19:20 WBC 3.6 L D RBC 3.45 L Hgb 7.9 L Hct 26.0 L MCV 75.4 L MCH 22.9 L MCHC 30.4 L RDW 16.2 H Plt Count 306 MPV 8.2 Gran % 41.4 L Lymph % (Auto) 48.6 H Simpson % (Auto) 7.5 H Eos % (Auto) 2.2 Baso % (Auto) 0.3 Gran # 1.49 Lymph # (Auto) 1.8 Simpson # (Auto) 0.3 Eos # (Auto) 0.1 Baso # (Auto) 0.01 Sodium Potassium Chloride Carbon Dioxide Anion Gap BUN Creatinine Est GFR ( Amer) Est GFR (Non-Af Amer) POC Glucose (mg/dL) 79 Random Glucose Hemoglobin A1c Calcium Magnesium Iron TIBC % Saturation Ferritin Total Bilirubin AST ALT Alkaline Phosphatase Troponin I < 0.01 Total Protein Albumin Globulin Albumin/Globulin Ratio Vitamin B12 Folate Blood Type Antibody Screen Crossmatch BBK History Checked 08/10/18 08/10/18 08/11/18 21:39 21:50 01:43 WBC RBC Hgb Hct MCV MCH MCHC RDW Plt Count MPV Gran % Lymph % (Auto) Simpson % (Auto) Eos % (Auto) Baso % (Auto) Gran # Lymph # (Auto) Simpson # (Auto) Eos # (Auto) Baso # (Auto) Sodium Potassium Chloride Carbon Dioxide Anion Gap BUN Creatinine Est GFR ( Amer) Est GFR (Non-Af Amer) POC Glucose (mg/dL) 85 80 Random Glucose Hemoglobin A1c Calcium Magnesium Iron TIBC % Saturation Ferritin Total Bilirubin AST ALT Alkaline Phosphatase Troponin I < 0.01 Total Protein Albumin Globulin Albumin/Globulin Ratio Vitamin B12 Folate Blood Type Antibody Screen Crossmatch BBK History Checked 08/11/18 08/11/18 08/11/18 02:00 05:35 05:35 WBC RBC Hgb Hct MCV MCH MCHC RDW Plt Count MPV Gran % Lymph % (Auto) Simpson % (Auto) Eos % (Auto) Baso % (Auto) Gran # Lymph # (Auto) Simpson # (Auto) Eos # (Auto) Baso # (Auto) Sodium 139 Potassium 3.4 L Chloride 111 H Carbon Dioxide 24 Anion Gap 8 L BUN 6 L Creatinine 0.6 L Est GFR ( Amer) > 60 Est GFR (Non-Af Amer) > 60 POC Glucose (mg/dL) Random Glucose 97 Hemoglobin A1c 6.3 Calcium 8.3 L Magnesium 1.8 Iron TIBC % Saturation Ferritin Total Bilirubin 0.5 AST 17 ALT 25 Alkaline Phosphatase 55 Troponin I < 0.01 Total Protein 6.0 Albumin 3.2 Globulin 2.9 Albumin/Globulin Ratio 1.1 Vitamin B12 Folate Blood Type Antibody Screen Crossmatch BBK History Checked 08/11/18 08/11/18 08/11/18 05:35 07:04 08:57 WBC 3.3 L RBC 3.79 Hgb 8.7 L Hct 28.9 L MCV 76.3 L MCH 23.0 L MCHC 30.1 L RDW 16.3 H Plt Count 294 MPV 8.1 Gran % Lymph % (Auto) Simpson % (Auto) Eos % (Auto) Baso % (Auto) Gran # Lymph # (Auto) Simpson # (Auto) Eos # (Auto) Baso # (Auto) Sodium Potassium Chloride Carbon Dioxide Anion Gap BUN Creatinine Est GFR ( Amer) Est GFR (Non-Af Amer) POC Glucose (mg/dL) 86 109 Random Glucose Hemoglobin A1c Calcium Magnesium Iron TIBC % Saturation Ferritin Total Bilirubin AST ALT Alkaline Phosphatase Troponin I Total Protein Albumin Globulin Albumin/Globulin Ratio Vitamin B12 Folate Blood Type Antibody Screen Crossmatch BBK History Checked 08/11/18 11:37 WBC RBC Hgb Hct MCV MCH MCHC RDW Plt Count MPV Gran % Lymph % (Auto) Simpson % (Auto) Eos % (Auto) Baso % (Auto) Gran # Lymph # (Auto) Simpson # (Auto) Eos # (Auto) Baso # (Auto) Sodium Potassium Chloride Carbon Dioxide Anion Gap BUN Creatinine Est GFR ( Amer) Est GFR (Non-Af Amer) POC Glucose (mg/dL) 145 H Random Glucose Hemoglobin A1c Calcium Magnesium Iron TIBC % Saturation Ferritin Total Bilirubin AST ALT Alkaline Phosphatase Troponin I Total Protein Albumin Globulin Albumin/Globulin Ratio Vitamin B12 Folate Blood Type Antibody Screen Crossmatch BBK History Checked Attending/Attestation - Attestation I have personally seen and examined this patient.: Yes I have fully participated in the care of the patient.: Yes I have reviewed all pertinent clinical information: Yes Notes (Text): 08/11/18 12:33 Attending note; Patient seen and examined with resident in ER. Patient is alert and awake. Complaining of abdominal pain. Patient is complaining of dark stool for the past few days. Had one episode of hematemesis in the past. Patient has vaginal bleeding. Denies any urinary symptoms. Patient is a 42 year old female with a PMH of HTN, DM, GERD, hiatal hernia, esophageal ulcer, and Gastric sleeve who presents to the ED complaining of dizziness, abdominal pain, palpitations, and nausea which started yesterday. Patient also complaining of generalized weakness. 1. Anemia; patient has dark stools. Stool guaiac is positive. Previous history of esophageal ulcer. Currently takes omeprazole at home. Patient follows up with GI Dr. Anthony. Patient with a recent umbilical hernia surgery. Started on IV fluids. Nothing by mouth. Continue IV Protonix. GI evaluation requested. Type and crossmatch done. Transfuse as needed. 2. Nausea and vomiting; continue Zofran when necessary. Started on IV fluids. Nothing by mouth. 3. Vaginal bleeding; patient recently completed her regular menses. Patient follows up with [facility] Dr. Murry. Patient was supposed to get an ultrasound for possible evaluation for hysterectomy. Transvaginal ultrasound requested. Admit the patient and monitor closely. The diagnosis, treatment plan discussed with patient in detail. upon discharge patient will follow-up with PMD Dr. Bar. 08/11/18 12:38
[2018-08-10] MEDS: cefTRIAXone 1 gm 1 GM/100 ML BAG IVPB SCH (14:09)
[2018-08-10 14:12] LABS: IRON 17 ug/dL (45-180)
[2018-08-10 14:20] LABS: % IRON SATURATION 4 % (20-55); TOTAL IRON BINDING CAPACITY 403 ug/dL (265-497)
[2018-08-10] MEDS: Albuterol-Ipratrop 3 mg / 0.5 (3 ml) UD IH SCH ×3 (15:35→23:32)
[2018-08-10] MEDS ORDERED: Sodium Chloride 0.9% 1,000 ML IV SCH (17:00)
[2018-08-10 17:04] VITALS: BMI 36.5
[2018-08-10 17:04] LABS: BASO # 0.01 K/mm3 (0.0-2.0); BASO % 0.3 % (0.0-3.0); EOS # 0.1 (0.0-0.7); EOS % 2.2 % (1.5-5.0); GRAN # 1.49 (1.4-6.5); GRAN % 41.4 % (50.0-68.0); HEMOGLOBIN 7.9 g/dL (12.0-16.0); LYMPH # 1.8 (1.2-3.4); LYMPH % 48.6 % (22.0-35.0); MEAN CELL VOLUME 75.4 fl (80.0-105.0); MEAN CORPUSCULAR HEMOGLOBIN 22.9 pg (25.0-35.0); MEAN CORPUSCULAR HGB CONC 30.4 g/dl (31.0-37.0); MEAN PLATELET VOLUME 8.2 fl (7.0-11.0); MONO # 0.3 (0.1-0.6); MONO % 7.5 % (1.0-6.0); RBC 3.45 10^6/uL (3.5-6.1); RED CELL DISTRIBUTION WIDTH 16.2 % (11.5-14.5); WHITE BLOOD COUNT 3.6 10^3/uL (4.5-11.0)
[2018-08-10] MEDS ORDERED: Influenza Vaccine 60 mcg/0.5 mL SYR (4YR UP) IM ONE (17:04)
[2018-08-10] MEDS ORDERED: Pneumococcal 23-Valent Vaccine IM ONE (17:04)
[2018-08-10] MEDS ORDERED: DiphenhydrAMINE 50 mg/ml Inj IVP ONE (20:59)
[2018-08-10 21:12] LABS: FERRITIN 4.4 ng/mL
[2018-08-10 21:42] LABS: FOLATE 5.4 ng/mL
--- NOTE | 2018-08-10 23:18 | CARD ---
APPROVED REPORT Date of service: 08/10/2018 EKG Measurement Heart [id number] OR 216P [id number] <Conclusion> Sinus rhythm with 1st degree AV block NDSTT abnormalities in the anterior precordial leads Borderline EKG
[2018-08-11] MEDS: Albuterol-Ipratrop 3 mg / 0.5 (3 ml) UD IH SCH ×5 (03:47→14:58)
[2018-08-11 06:18] LABS: HEMOGLOBIN 8.7 g/dL (12.0-16.0); MEAN CELL VOLUME 76.3 fl (80.0-105.0); MEAN CORPUSCULAR HGB CONC 30.1 g/dl (31.0-37.0); MEAN PLATELET VOLUME 8.1 fl (7.0-11.0); RBC 3.79 10^6/uL (3.5-6.1); RED CELL DISTRIBUTION WIDTH 16.3 % (11.5-14.5); WHITE BLOOD COUNT 3.3 10^3/uL (4.5-11.0)
[2018-08-11 07:01] LABS: ALB/GLOB RATIO 1.1 (1.1-1.8); ALBUMIN 3.2 g/dL (3.0-4.8); ALT/SGPT 25 U/L (7-56); AST/SGOT 17 U/L (14-36); BLOOD UREA NITROGEN 6 mg/dL (7-21); CALCIUM 8.3 mg/dL (8.4-10.5); GFR NON-AFRICAN AMERICAN > 60
[2018-08-11] MEDS ORDERED: Potassium Chloride 40 mEq/30 ml LIQ UD PO ONE (07:07)
[2018-08-11] MEDS ORDERED: Dextrose 50% SYRINGE Inj (50 ml) IVP ONE (07:17)
[2018-08-11] MEDS ORDERED: Dextrose 50% SYRINGE Inj (50 ml) IV PRN (07:17)
[2018-08-11] MEDS ORDERED: Dextrose 5%/0.9% NS 1,000 ML IV SCH (08:00)
[2018-08-11 08:42] VITALS: O2SAT 97
--- NOTE | 2018-08-11 11:32 | US ---
Date of service: 08/10/2018 HISTORY: vaginal bleeding COMPARISON: None available. TECHNIQUE: Transvaginal FINDINGS: UTERUS: Measures 9.3 x 5.1 x 5.9 cm. Normal in size and appearance. There is a 7.0 x 4.3 mm lesion in the endometrial canal consistent with a polyp or fibroid. ENDOMETRIUM: Measures 7 mm in diameter. Unremarkable. CERVIX: No cervical abnormality identified. RIGHT OVARY: Measures 4.06 x 1.44 x 2.29 cm. No solid mass. Normal flow. Septated cyst measuring 1.81 x 1.65 x 1.71 cm LEFT OVARY: Not visualized FREE FLUID: No significant free fluid noted. OTHER FINDINGS: The report concurs with the preliminary [facility] report IMPRESSION: There is a 7.0 x 4.3 mm lesion in the endometrial canal consistent with a polyp or fibroid. Septated right ovarian cyst measuring 1.8 x 1.6 x 1.7 cm
[2018-08-11] MEDS: cefTRIAXone 1 gm 1 GM/100 ML BAG IVPB SCH (11:45)
--- NOTE | 2018-08-11 12:23 | CP.PCM.CON ---
<RodgerJennyzbigniew - Last Filed: 08/11/18 13:24> History of Present Illness - History of Present Illness History of Present Illness: PGY-4 GI Fellow Consult Note Pt is a 42 yo BF with HTN, DM, GERD, Hiatal Hernia, h/o esophageal ulcer (fibrinopurulent on biopsy), s/p Gastric Sleeve, NAFLD, Diverticulosis, Int Hemorrhoids, Asthma, Eczema presenting with complaint of dizziness, abd pain, hematemesis, black stools and vaginal bleeding. She states about 4 days ago she had a few episodes of bloody emesis, none since. She also reports some black stools over the last several days since the episode of bloody emesis with last black stool night prior to presentation. There is also associated bilateral lower quadrant pain that is sharp, non-radiating without precipitating or alleviating factors. She also report some red blood passing from her vaginal beyond her normal menstrual cycle which she stated ended last week. Since all this began, she states that she has felt generalized fatigue and weakness. She denied any NSAID or blood thinner use. She states that she has not been on iron supplementation for months. She denied any dysphagia nor weight loss. 12 point ROS negative other than stated above MHx: See above SurgHx: Gastric sleeve, x 2, Tubal ligation Meds: Reviewed in chart FamHx: Father with Esophageal CA dx in 80s (), M with heart problems SocHx: Rare EtOH, 3 cigarettes per day, denied illicits. All: Shellfish, Ondansetron/Morphine, Egg/Wheat EGD 03/2017: Esophagel Ulcer (fibrinopurulent, no dysplasia noted), LA-D Esophagitis, HP+ gastritis, Gastric Duod Jxn with chronic active inflammation with flattend villous arch and inc intraepi lymphocytes CSPY 10/2014: Diverticulosis, Int Hemorrhoids and 3 Hyperplastic polyps (2 outside rectosigmoid). Past Patient History - Infectious Disease Hx of Infectious Diseases: None - Tetanus Immunizations Tetanus Immunization: Unknown - Past Medical History & Family History Past Medical History?: Yes - Past Social History Smoking Status: Light Smoker < 10 Cigarettes Daily - CARDIAC Hx Cardiac Disorders: Yes (cp) Hx Hypertension: Yes - PULMONARY Hx Respiratory Disorders: Yes Hx Asthma: Yes Hx Bronchitis: Yes Hx Chronic Obstructive Pulmonary Disease (COPD): No Hx Sleep Apnea: Yes - NEUROLOGICAL Hx Neurological Disorder: Yes (vertigo) Hx Migraine: Yes - HEENT Hx HEENT Problems: No - RENAL Hx Chronic Kidney Disease: No - ENDOCRINE/METABOLIC Hx Endocrine Disorders: Yes Hx Diabetes Mellitus Type 2: Yes (diet controlled) - HEMATOLOGICAL/ONCOLOGICAL Hx Blood Disorders: Yes (blood transfusions) Hx Anemia: Yes (with iron transfusions) - INTEGUMENTARY Hx Dermatological Problems: Yes Hx Eczema: Yes - MUSCULOSKELETAL/RHEUMATOLOGICAL Hx Musculoskeletal Disorders: Yes Hx Back Pain: Yes Hx Falls: No Hx Fractures: Yes (ORIF right wrist ) - GASTROINTESTINAL Hx Gastrointestinal Disorders: Yes (obese, colon polyps, gi bleed) Hx Gastroesophageal Reflux: Yes Hx Ulcer: Yes Other/Comment: hiatal hernia repair 01/18/15, gastritis, esophageal ulcer - GENITOURINARY/GYNECOLOGICAL Hx Genitourinary Disorders: Yes (C SECTION x2,TUBAL LIGATION) Other/Comment: fibroid uterus, meatal stenosis - PSYCHIATRIC Hx Psychophysiologic Disorder: No Hx Anxiety: No Hx Bipolar Disorder: No Hx Depression: No Hx Post Traumatic Stress Disorder: No Hx Schizophrenia: No Hx Substance Use: No - SURGICAL HISTORY Hx Gastric Bypass Surgery: Yes (gastric sleeve 2013) Hx Orthopedic Surgery: Yes (right wrist ORIF ) Other/Comment: Hiatal hernia Sx. umbilical hearnia repair - ANESTHESIA Hx Anesthesia: Yes Hx Anesthesia Reactions: No Hx Malignant Hyperthermia: No Meds Home Medications: Home Medication List Medication Instructions Recorded Confirmed Type Polyethylene Glycol 3350 [Miralax] 17 gm PO BID PRN #10 ml 08/11/18 Rx RX: Pantoprazole [Protonix EC Tab] 40 mg PO QAM #30 ect 08/11/18 Rx Allergies/Adverse Reactions: Allergies Allergy/AdvReac Type Severity Reaction Status Date / Time morphine Allergy Mild RASH Verified 04/30/18 02:00 shellfish derived Allergy Mild RASH Verified 04/30/18 02:00 hydromorphone [From Dilaudid] Allergy RASH Verified 04/30/18 02:00 ondansetron Allergy RASH Verified 04/30/18 02:00 [From Zofran (as hydrochloride)] seafood Allergy Severe URTICARIA Uncoded 04/30/18 02:00 dust Allergy ITCHING Uncoded 04/30/18 02:00 - Medications Medications: Current Medications Albuterol/Ipratropium (Duoneb 3 Mg/0.5 Mg (3 Ml) Ud) 3 ml IH [id number] MALIHA Last Admin: 08/11/18 11:44 Dose: 3 ml Albuterol/Ipratropium (Duoneb 3 Mg/0.5 Mg (3 Ml) Ud) 3 ml IH Q2H PRN PRN Reason: Shortness of Breath Dextrose (Dextrose 50% Inj) 0 ml IV STAT PRN; Protocol PRN Reason: Hypoglycemia Protocol Hydralazine HCl (Apresoline) 10 mg IVP Q6 PRN PRN Reason: SBP>160 Ceftriaxone Sodium (Rocephin 1 Gram Ivpb) 1 gm in 100 mls @ 100 mls/hr IVPB DAILY MALIHA; Protocol Last Admin: 08/11/18 11:45 Dose: 100 mls/hr Sodium Chloride (Sodium Chloride 0.9%) 1,000 mls @ 100 mls/hr IV .Q10H [facility] Last Admin: 08/10/18 17:12 Dose: 100 mls/hr Dextrose (Dextrose 5% In Water 1000 Ml) 1,000 mls @ 0 mls/hr IV .Q0M PRN; Protocol PRN Reason: Hypoglycemia Protocol Dextrose/Sodium Chloride (Dextrose 5%/0.9% Ns 1000 Ml) 1,000 mls @ 100 mls/hr IV .Q10H [facility] Last Admin: 08/11/18 09:59 Dose: 100 mls/hr Pantoprazole Sodium (Protonix Inj) 40 mg IVP Q12 [facility] Last Admin: 08/11/18 09:54 Dose: 40 mg Physical Exam - Constitutional Appears: Well, No Acute Distress - Head Exam Head Exam: ATRAUMATIC, NORMAL INSPECTION - Eye Exam Eye Exam: EOMI. absent: Scleral icterus - ENT Exam ENT Exam: Mucous Membranes Moist. absent: Mucous Membranes Dry - Respiratory Exam Respiratory Exam: Clear to Auscultation Bilateral, NORMAL BREATHING PATTERN. absent: Accessory Muscle Use, Respiratory Distress - Cardiovascular Exam Cardiovascular Exam: REGULAR RHYTHM, RRR - GI/Abdominal Exam GI & Abdominal Exam: Normal Bowel Sounds, Soft, Tenderness (mildly ttp in lower abd w/o guarding). absent: Bruit, Diminished Bowel Sounds, Distended, Firm, Guarding, Hernia, Organomegaly, Pulsatile Mass, Rebound, Rigid - Rectal Exam Rectal Exam: NORMAL INSPECTION Additional comments: small amount of light brown stool on DEANDRE, no obvious palpable masses - Extremities Exam Extremities exam: Positive for: normal inspection, pedal edema (trace bilateral LE edema) - Neurological Exam Neurological exam: Alert, CN II-XII Intact - Psychiatric Exam Psychiatric exam: Normal Affect, Normal Mood - Skin Skin Exam: Dry, Warm Results - Vital Signs Recent Vital Signs: Last Vital Signs Temp 98.5 F 08/11/18 06:00 Pulse 66 08/11/18 06:00 Resp 20 08/11/18 06:00 BP 105/74 08/11/18 06:00 Pulse Ox 97 08/11/18 06:00 - Labs Result Diagrams: 08/11/18 05:35 08/11/18 05:35 Labs: Laboratory Results - last 24 hr 08/10/18 08/10/18 08/10/18 09:35 13:46 13:46 WBC RBC Hgb Hct MCV MCH MCHC RDW Plt Count MPV Gran % Lymph % (Auto) [place] % (Auto) Eos % (Auto) Baso % (Auto) Gran # Lymph # (Auto) [place] # (Auto) Eos # (Auto) Baso # (Auto) Sodium Potassium Chloride Carbon Dioxide Anion Gap BUN Creatinine Est GFR ( Amer) Est GFR (Non-Af Amer) POC Glucose (mg/dL) Random Glucose Hemoglobin A1c Calcium Magnesium Iron 17 L TIBC 403 % Saturation 4 L Ferritin 4.4 Total Bilirubin AST ALT Alkaline Phosphatase Troponin I Total Protein Albumin Globulin Albumin/Globulin Ratio Vitamin B12 180 L Folate 5.4 Blood Type O POSITIVE Antibody Screen Negative Crossmatch See Detail BBK History Checked Patient has bt 08/10/18 08/10/18 08/10/18 13:46 16:52 19:20 WBC 3.6 L D RBC 3.45 L Hgb 7.9 L Hct 26.0 L MCV 75.4 L MCH 22.9 L MCHC 30.4 L RDW 16.2 H Plt Count 306 MPV 8.2 Gran % 41.4 L Lymph % (Auto) 48.6 H [place]kin % (Auto) 7.5 H Eos % (Auto) 2.2 Baso % (Auto) 0.3 Gran # 1.49 Lymph # (Auto) 1.8 [place]kin # (Auto) 0.3 Eos # (Auto) 0.1 Baso # (Auto) 0.01 Sodium Potassium Chloride Carbon Dioxide Anion Gap BUN Creatinine Est GFR ( Amer) Est GFR (Non-Af Amer) POC Glucose (mg/dL) 79 Random Glucose Hemoglobin A1c Calcium Magnesium Iron TIBC % Saturation Ferritin Total Bilirubin AST ALT Alkaline Phosphatase Troponin I < 0.01 Total Protein Albumin Globulin Albumin/Globulin Ratio Vitamin B12 Folate Blood Type Antibody Screen Crossmatch BBK History Checked 08/10/18 08/10/18 08/11/18 21:39 21:50 01:43 WBC RBC Hgb Hct MCV MCH MCHC RDW Plt Count MPV Gran % Lymph % (Auto) [place] % (Auto) Eos % (Auto) Baso % (Auto) Gran # Lymph # (Auto) [place] # (Auto) Eos # (Auto) Baso # (Auto) Sodium Potassium Chloride Carbon Dioxide Anion Gap BUN Creatinine Est GFR ( Amer) Est GFR (Non-Af Amer) POC Glucose (mg/dL) 85 80 Random Glucose Hemoglobin A1c Calcium Magnesium Iron TIBC % Saturation Ferritin Total Bilirubin AST ALT Alkaline Phosphatase Troponin I < 0.01 Total Protein Albumin Globulin Albumin/Globulin Ratio Vitamin B12 Folate Blood Type Antibody Screen Crossmatch BBK History Checked 08/11/18 08/11/18 08/11/18 02:00 05:35 05:35 WBC RBC Hgb Hct MCV MCH MCHC RDW Plt Count MPV Gran % Lymph % (Auto) [place] % (Auto) Eos % (Auto) Baso % (Auto) Gran # Lymph # (Auto) [place]kin # (Auto) Eos # (Auto) Baso # (Auto) Sodium 139 Potassium 3.4 L Chloride 111 H Carbon Dioxide 24 Anion Gap 8 L BUN 6 L Creatinine 0.6 L Est GFR ( Amer) > 60 Est GFR (Non-Af Amer) > 60 POC Glucose (mg/dL) Random Glucose 97 Hemoglobin A1c 6.3 Calcium 8.3 L Magnesium 1.8 Iron TIBC % Saturation Ferritin Total Bilirubin 0.5 AST 17 ALT 25 Alkaline Phosphatase 55 Troponin I < 0.01 Total Protein 6.0 Albumin 3.2 Globulin 2.9 Albumin/Globulin Ratio 1.1 Vitamin B12 Folate Blood Type Antibody Screen Crossmatch BBK History Checked 08/11/18 08/11/18 08/11/18 05:35 07:04 08:57 WBC 3.3 L RBC 3.79 Hgb 8.7 L Hct 28.9 L MCV 76.3 L MCH 23.0 L MCHC 30.1 L RDW 16.3 H Plt Count 294 MPV 8.1 Gran % Lymph % (Auto) [place] % (Auto) Eos % (Auto) Baso % (Auto) Gran # Lymph # (Auto) [place]kin # (Auto) Eos # (Auto) Baso # (Auto) Sodium Potassium Chloride Carbon Dioxide Anion Gap BUN Creatinine Est GFR ( Amer) Est GFR (Non-Af Amer) POC Glucose (mg/dL) 86 109 Random Glucose Hemoglobin A1c Calcium Magnesium Iron TIBC % Saturation Ferritin Total Bilirubin AST ALT Alkaline Phosphatase Troponin I Total Protein Albumin Globulin Albumin/Globulin Ratio Vitamin B12 Folate Blood Type Antibody Screen Crossmatch BBK History Checked 08/11/18 11:37 WBC RBC Hgb Hct MCV MCH MCHC RDW Plt Count MPV Gran % Lymph % (Auto) [place] % (Auto) Eos % (Auto) Baso % (Auto) Gran # Lymph # (Auto) [place]kin # (Auto) Eos # (Auto) Baso # (Auto) Sodium Potassium Chloride Carbon Dioxide Anion Gap BUN Creatinine Est GFR ( Amer) Est GFR (Non-Af Amer) POC Glucose (mg/dL) 145 H Random Glucose Hemoglobin A1c Calcium Magnesium Iron TIBC % Saturation Ferritin Total Bilirubin AST ALT Alkaline Phosphatase Troponin I Total Protein Albumin Globulin Albumin/Globulin Ratio Vitamin B12 Folate Blood Type Antibody Screen Crossmatch BBK History Checked Assessment & Plan - Assessment and Plan (Free Text) Assessment: 42 yo BF with HTN, DM, GERD, Hiatal Hernia, h/o esophageal ulcer (fibrinopurulent on biopsy), s/p Gastric Sleeve, NAFLD, Diverticulosis, Int Hemorrhoids, Asthma, Eczema presenting with complaint of dizziness, abd pain, hematemesis, black stools and vaginal bleeding. EGD 03/2017: Esophagel Ulcer (fibrinopurulent, no dysplasia noted), LA-D Esophagitis, HP+ gastritis, Gastric Duod Jxn with chronic active inflammation with flattend villous arch and inc intraepi lymphocytes CSPY 10/2014: Diverticulosis, Int Hemorrhoids and 3 Hyperplastic polyps (2 outside rectosigmoid). # Hematemesis, Black Stools: No signs of active GI Bleed. Hematemeis was brief several days ago and last black BM day prior to admission with light brown stool on rectal exam. Vitals stable and Hgb not off baseline. Appropriately responded to PRBC transfusion. # H pylori Gastritis: Untreated # H/o Esophageal Ulcer # NAFLD # Diverticulosis, Int Hemorroids Plan: - Adv diet as tolerated - Pantoprazole 40 mg QD - F/u with outpatient GI doc, Dr. Anthony for EGD+CSPY Pt seen and examined with Dr. Marie; please see attestation for further recs/changes. <Thiago Marie - Last Filed: 08/11/18 16:09> Meds - Medications Medications: Current Medications Albuterol/Ipratropium (Duoneb 3 Mg/0.5 Mg (3 Ml) Ud) 3 ml IH [id number] MALIHA Last Admin: 08/11/18 14:58 Dose: 3 ml Albuterol/Ipratropium (Duoneb 3 Mg/0.5 Mg (3 Ml) Ud) 3 ml IH Q2H PRN PRN Reason: Shortness of Breath Dextrose (Dextrose 50% Inj) 0 ml IV STAT PRN; Protocol PRN Reason: Hypoglycemia Protocol Hydralazine HCl (Apresoline) 10 mg IVP Q6 PRN PRN Reason: SBP>160 Ceftriaxone Sodium (Rocephin 1 Gram Ivpb) 1 gm in 100 mls @ 100 mls/hr IVPB DAILY [facility]IHA; Protocol Last Admin: 08/11/18 11:45 Dose: 100 mls/hr Sodium Chloride (Sodium Chloride 0.9%) 1,000 mls @ 100 mls/hr IV .Q10H [facility] Last Admin: 08/10/18 17:12 Dose: 100 mls/hr Dextrose (Dextrose 5% In Water 1000 Ml) 1,000 mls @ 0 mls/hr IV .Q0M PRN; Protocol PRN Reason: Hypoglycemia Protocol Dextrose/Sodium Chloride (Dextrose 5%/0.9% Ns 1000 Ml) 1,000 mls @ 100 mls/hr IV .Q10H [facility] Last Admin: 08/11/18 09:59 Dose: 100 mls/hr Pantoprazole Sodium (Protonix Inj) 40 mg IVP Q12 [facility] Last Admin: 08/11/18 09:54 Dose: 40 mg Results - Vital Signs Recent Vital Signs: Last Vital Signs Temp 98.6 F 08/11/18 14:00 Pulse 68 08/11/18 14:00 Resp 18 08/11/18 14:00 BP 117/70 08/11/18 14:00 Pulse Ox 97 08/11/18 14:00 - Labs Result Diagrams: 08/11/18 05:35 08/11/18 05:35 Labs: Laboratory Results - last 24 hr 08/10/18 08/10/18 08/10/18 09:35 13:46 16:52 WBC 3.6 L D RBC 3.45 L Hgb 7.9 L Hct 26.0 L MCV 75.4 L MCH 22.9 L MCHC 30.4 L RDW 16.2 H Plt Count 306 MPV 8.2 Gran % 41.4 L Lymph % (Auto) 48.6 H [place]kin % (Auto) 7.5 H Eos % (Auto) 2.2 Baso % (Auto) 0.3 Gran # 1.49 Lymph # (Auto) 1.8 [place]kin # (Auto) 0.3 Eos # (Auto) 0.1 Baso # (Auto) 0.01 Sodium Potassium Chloride Carbon Dioxide Anion Gap BUN Creatinine Est GFR ( Amer) Est GFR (Non-Af Amer) POC Glucose (mg/dL) Random Glucose Hemoglobin A1c Calcium Magnesium Ferritin 4.4 Total Bilirubin AST ALT Alkaline Phosphatase Troponin I Total Protein Albumin Globulin Albumin/Globulin Ratio Vitamin B12 180 L Folate 5.4 Blood Type O POSITIVE Antibody Screen Negative Crossmatch See Detail BBK History Checked Patient has bt 08/10/18 08/10/18 08/10/18 19:20 21:39 21:50 WBC RBC Hgb Hct MCV MCH MCHC RDW Plt Count MPV Gran % Lymph % (Auto) [place] % (Auto) Eos % (Auto) Baso % (Auto) Gran # Lymph # (Auto) [place] # (Auto) Eos # (Auto) Baso # (Auto) Sodium Potassium Chloride Carbon Dioxide Anion Gap BUN Creatinine Est GFR ( Amer) Est GFR (Non-Af Amer) POC Glucose (mg/dL) 79 85 Random Glucose Hemoglobin A1c Calcium Magnesium Ferritin Total Bilirubin AST ALT Alkaline Phosphatase Troponin I < 0.01 Total Protein Albumin Globulin Albumin/Globulin Ratio Vitamin B12 Folate Blood Type Antibody Screen Crossmatch BBK History Checked 08/11/18 08/11/18 08/11/18 01:43 02:00 05:35 WBC RBC Hgb Hct MCV MCH MCHC RDW Plt Count MPV Gran % Lymph % (Auto) [place] % (Auto) Eos % (Auto) Baso % (Auto) Gran # Lymph # (Auto) [place] # (Auto) Eos # (Auto) Baso # (Auto) Sodium 139 Potassium 3.4 L Chloride 111 H Carbon Dioxide 24 Anion Gap 8 L BUN 6 L Creatinine 0.6 L Est GFR ( Amer) > 60 Est GFR (Non-Af Amer) > 60 POC Glucose (mg/dL) 80 Random Glucose 97 Hemoglobin A1c Calcium 8.3 L Magnesium 1.8 Ferritin Total Bilirubin 0.5 AST 17 ALT 25 Alkaline Phosphatase 55 Troponin I < 0.01 Total Protein 6.0 Albumin 3.2 Globulin 2.9 Albumin/Globulin Ratio 1.1 Vitamin B12 Folate Blood Type Antibody Screen Crossmatch BBK History Checked 08/11/18 08/11/18 08/11/18 05:35 05:35 07:04 WBC 3.3 L RBC 3.79 Hgb 8.7 L Hct 28.9 L MCV 76.3 L MCH 23.0 L MCHC 30.1 L RDW 16.3 H Plt Count 294 MPV 8.1 Gran % Lymph % (Auto) [place] % (Auto) Eos % (Auto) Baso % (Auto) Gran # Lymph # (Auto) [place] # (Auto) Eos # (Auto) Baso # (Auto) Sodium Potassium Chloride Carbon Dioxide Anion Gap BUN Creatinine Est GFR ( Amer) Est GFR (Non-Af Amer) POC Glucose (mg/dL) 86 Random Glucose Hemoglobin A1c 6.3 Calcium Magnesium Ferritin Total Bilirubin AST ALT Alkaline Phosphatase Troponin I Total Protein Albumin Globulin Albumin/Globulin Ratio Vitamin B12 Folate Blood Type Antibody Screen Crossmatch BBK History Checked 08/11/18 08/11/18 08:57 11:37 WBC RBC Hgb Hct MCV MCH MCHC RDW Plt Count MPV Gran % Lymph % (Auto) [place] % (Auto) Eos % (Auto) Baso % (Auto) Gran # Lymph # (Auto) [place] # (Auto) Eos # (Auto) Baso # (Auto) Sodium Potassium Chloride Carbon Dioxide Anion Gap BUN Creatinine Est GFR ( Amer) Est GFR (Non-Af Amer) POC Glucose (mg/dL) 109 145 H Random Glucose Hemoglobin A1c Calcium Magnesium Ferritin Total Bilirubin AST ALT Alkaline Phosphatase Troponin I Total Protein Albumin Globulin Albumin/Globulin Ratio Vitamin B12 Folate Blood Type Antibody Screen Crossmatch BBK History Checked Attending/Attestation - Attestation I have personally seen and examined this patient.: Yes I have fully participated in the care of the patient.: Yes I have reviewed all pertinent clinical information: Yes Notes (Text): 08/11/18 15:59 I have seen and examined patient with GI fellow. Agree with above documentation with the following additions. In brief, this is a 42 year old female with history of DM, HTN, GERD, obesity s/p gastric sleeve, who presents to hospital with complaint of pelvic abdominal pain, dizziness, and vaginal bleeding for the past few days. She reports progressive fatigue along with dark colored stool during this time. She had one episode of blood tinged emesis the day before but none since. She otherwise denies weight loss, diarrhea, or change in bowel habits. She had an EGD in March 2017 which showed a GEJ ulcer, esophagitis, and helicobacter pylori associated gastritis (non-treated as per patient). She follows up with primary GI physician Dr. Anthony in [facility]. DM HTN GERD Obesity s/p sleeve gastrectomy Anemia Dysfunctional uterine bleeding, pelvic pain - Diet as tolerated - H/H stable, s/p PRBC transfusion - Suggest [employer] evaluation - Continue with PPI therapy - Anti-emetic therapy PRN - From GI standpoint, ok to discharge home with subsequent outpatient GI follow up with primary GI physician Dr. Anthony. No planned GI interventions at this time, will sign off case. Please reconsult as necessary, thank you.
--- NOTE | 2018-08-11 13:09 | CP.PCM.DIS ---
<Oliver Morochoron - Last Filed: 08/11/18 15:35> Provider - Provider Date of Admission: 08/10/18 11:32 Attending physician: Monica Penn MD Consults: 08/10/18 11:37 Physician Consult Stat Comment: Consulting Provider: Matteo Carr Consulting Physician: Matteo Carr Reason for Consult: abnormal vaginal bleeding; LMP 08/0108/10/18 12:29 Physician Consult Routine Comment: Consulting Provider: Thiago Marie Consulting Physician: Thiago Marie Reason for Consult: bright red blood per rectum 08/10/18 17:04 Respiratory Therapy Referral Routine Comment: smoker Physician Instructions: Reason For Exam: eval Time Spent in preparation of Discharge (in minutes): 40 Diagnosis - Discharge Diagnosis (1) Abdominal pain Status: Acute Priority: High (2) Anemia Status: Chronic Priority: High (3) GERD (gastroesophageal reflux disease) Status: Acute Priority: High Hospital Course - Lab Results Lab Results: Micro Results 08/10/18 10:32 Urine,Clean Catch Urine Culture - Final No Growth (<1,000 CFU/ML) Most Recent Lab Values WBC 3.3 10^3/uL (4.5-11.0) L 08/11/18 05:35 RBC 3.79 10^6/uL (3.5-6.1) 08/11/18 05:35 Hgb 8.7 g/dL (12.0-16.0) L 08/11/18 05:35 Hct 28.9 % (36.0-48.0) L 08/11/18 05:35 MCV 76.3 fl (80.0-105.0) L 08/11/18 05:35 MCH 23.0 pg (25.0-35.0) L 08/11/18 05:35 MCHC 30.1 g/dl (31.0-37.0) L 08/11/18 05:35 RDW 16.3 % (11.5-14.5) H 08/11/18 05:35 Plt Count 294 10^3/uL (120.0-450.0) 08/11/18 05:35 MPV 8.1 fl (7.0-11.0) 08/11/18 05:35 Gran % 41.4 % (50.0-68.0) L 08/10/18 16:52 Lymph % (Auto) 48.6 % (22.0-35.0) H 08/10/18 16:52 [place] % (Auto) 7.5 % (1.0-6.0) H 08/10/18 16:52 Eos % (Auto) 2.2 % (1.5-5.0) 08/10/18 16:52 Baso % (Auto) 0.3 % (0.0-3.0) 08/10/18 16:52 Gran # 1.49 (1.4-6.5) 08/10/18 16:52 Lymph # (Auto) 1.8 (1.2-3.4) 08/10/18 16:52 [place] # (Auto) 0.3 (0.1-0.6) 08/10/18 16:52 Eos # (Auto) 0.1 (0.0-0.7) 08/10/18 16:52 Baso # (Auto) 0.01 K/mm3 (0.0-2.0) 08/10/18 16:52 PT 12.2 SECONDS (9.4-12.5) 08/10/18 09:35 INR 1.06 08/10/18 09:35 APTT 29.5 Seconds (25.1-36.5) 08/10/18 09:35 Sodium 139 mmol/L (132-148) 08/11/18 05:35 Potassium 3.4 mmol/L (3.6-5.0) L 08/11/18 05:35 Chloride 111 mmol/L (98-107) H 08/11/18 05:35 Carbon Dioxide 24 mmol/L (21-33) 08/11/18 05:35 Anion Gap 8 (10-20) L 08/11/18 05:35 BUN 6 mg/dL (7-21) L 08/11/18 05:35 Creatinine 0.6 mg/dl (0.7-1.2) L 08/11/18 05:35 Est GFR ( Amer) > 60 08/11/18 05:35 Est GFR (Non-Af Amer) > 60 08/11/18 05:35 POC Glucose (mg/dL) 145 mg/dL (65-110) H 08/11/18 11:37 Random Glucose 97 mg/dL (70-110) 08/11/18 05:35 Hemoglobin A1c 6.3 % (4.2-6.5) 08/11/18 05:35 Calcium 8.3 mg/dL (8.4-10.5) L 08/11/18 05:35 Magnesium 1.8 mg/dL (1.7-2.2) 08/11/18 05:35 Iron 17 ug/dL (45-180) L 08/10/18 13:46 TIBC 403 ug/dL (265-497) 08/10/18 13:46 % Saturation 4 % (20-55) L 08/10/18 13:46 Ferritin 4.4 ng/mL 08/10/18 13:46 Total Bilirubin 0.5 mg/dL (0.2-1.3) 08/11/18 05:35 AST 17 U/L (14-36) 08/11/18 05:35 ALT 25 U/L (7-56) 08/11/18 05:35 Alkaline Phosphatase 55 U/L (38-126) 08/11/18 05:35 Lactate Dehydrogenase 479 U/L (333-699) 08/10/18 09:35 Total Creatine Kinase 185 U/L (35-230) 08/10/18 09:35 Troponin I < 0.01 ng/mL 08/11/18 02:00 Total Protein 6.0 g/dL (5.8-8.3) 08/11/18 05:35 Albumin 3.2 g/dL (3.0-4.8) 08/11/18 05:35 Globulin 2.9 gm/dL 08/11/18 05:35 Albumin/Globulin Ratio 1.1 (1.1-1.8) 08/11/18 05:35 Amylase 79 U/L (35-125) 08/10/18 09:35 Lipase 75 U/L (23-300) 08/10/18 09:35 Vitamin B12 180 pg/mL (239-931) L 08/10/18 13:46 Folate 5.4 ng/mL 08/10/18 13:46 Urine Color Dark yellow (YELLOW) 08/10/18 10:00 Urine Appearance Cloudy (CLEAR) 08/10/18 10:00 Urine pH 6.0 (4.7-8.0) 08/10/18 10:00 Ur Specific [place] >= 1.030 (1.005-1.035) 08/10/18 10:00 Urine Protein 100 mg/dL (<30 mg/dL) H 08/10/18 10:00 Urine Glucose (UA) Negative mg/dL (NEGATIVE) 08/10/18 10:00 Urine Ketones Negative mg/dL (NEGATIVE) 08/10/18 10:00 Urine Blood Large (NEGATIVE) H 08/10/18 10:00 Urine Nitrate Positive (NEGATIVE) H 08/10/18 10:00 Urine Bilirubin Small (NEGATIVE) H 08/10/18 10:00 Urine Urobilinogen 1.0 E.U./dL (<1 E.U./dL) H 08/10/18 10:00 Ur Leukocyte Esterase Moderate Jody/uL (NEGATIVE) H 08/10/18 10:00 Urine RBC Tntc /hpf (0-2) H 08/10/18 10:00 Urine WBC 20 - 25 /hpf (0-6) H 08/10/18 10:00 Ur Epithelial Cells 10 - 12 /hpf (0-5) H 08/10/18 10:00 Urine Bacteria Many /hpf (NONE) 08/10/18 10:00 Blood Type O POSITIVE 08/10/18 09:35 Antibody Screen Negative 08/10/18 09:35 Crossmatch See Detail 08/10/18 09:35 BBK History Checked Patient has bt 08/10/18 09:35 - Hospital Course Hospital Course: Upon Arrival Pt is a 42 yo female with a PMH of HTN, DM, GERD, hiatal hernia, esophageal ulc er, and Gastric sleeve who presents to the ED complaining of dizziness, abdominal pain, palpitations, and nausea which started yesterday. Pt denies falling or LOC. Pt states she has been vomiting blood for the past week. She also reports black tarry stool since . Pt states she had an endoscopy 1 year ago at [facility] which showed hiatal hernia. Pt states she has recently felt lethargic and "can fall asleep anytime". Pt states she has also been experiencing vaginal bleeding. Hospitalization Pt was ruled out for a GI bleed. Pt was monitored with serial CBCs. CT abdomen and pelvis was negative for any acute intra abdominal pathology. GI was consutled and deeided an EGD was not indicated at this time. Pt was refereed for an OBGYN for her vaginal bleeding. Discharge Pt advised to please follow up with primary care physician within 3-5 days. Please follow up with your [facility] within the next 1 week. Please continue to take your medications as previously prescribed. If your symptoms return or worsen, please go to the nearest emergency department. - Date & Time of H&P Date of H&P: 08/11/18 Time of H&P: 06:00 Discharge Exam - Head Exam Head Exam: ATRAUMATIC, NORMAL INSPECTION - Eye Exam Eye Exam: EOMI - ENT Exam ENT Exam: Mucous Membranes Moist - Neck Exam Neck exam: Full Rom - Respiratory Exam Respiratory Exam: NORMAL BREATHING PATTERN, UNREMARKABLE. absent: Accessory Muscle Use, Wheezes, Respiratory Distress - Cardiovascular Exam Cardiovascular Exam: RRR, +S1, +S2. absent: Diastolic murmur, Systolic Murmur - GI/Abdominal Exam GI & Abdominal Exam: Normal Bowel Sounds. absent: Tenderness - Extremities Exam Extremities exam: full ROM - Neurological Exam Neurological exam: Alert, Oriented x3 - Psychiatric Exam Psychiatric exam: Normal Affect, Normal Mood - Skin Skin Exam: Dry, Intact, Warm Discharge Plan - Discharge Medications Prescriptions: Pantoprazole [Protonix EC Tab] 40 mg PO QAM #30 ect Polyethylene Glycol 3350 [Miralax] 17 gm PO BID PRN #10 ml PRN Reason: Constipation - Follow Up Plan Condition: GOOD Disposition: HOME/ ROUTINE Instructions: Anemia Caused by Low Iron, Adult (DC), Acute Abdomen (Belly Pain), Gastrointestinal Bleeding (DC) Additional Instructions: 1. please follow up with your primary care physician within 3-5 days 2. please follow up with your [facility]G/[facility] within the next 1 week 3. please follow up with GIDr Anthony within 1 week 4. please continue to take your medications as previously prescribed 5. if your symptoms return or worsen, please go to the nearest emergency department <Monica Penn - Last Filed: 08/11/18 16:25> Provider - Provider Date of Admission: 08/10/18 11:32 Attending physician: Monica Penn MD Consults: 08/10/18 11:37 Physician Consult Stat Comment: Consulting Provider: Matteo Carr Consulting Physician: Matteo Carr Reason for Consult: abnormal vaginal bleeding; LMP 08/0108/10/18 17:04 Respiratory Therapy Referral Routine Comment: smoker Physician Instructions: Reason For Exam: [facility] Course - Lab Results Lab Results: Micro Results 08/10/18 10:32 Urine,Clean Catch Urine Culture - Final No Growth (<1,000 CFU/ML) Most Recent Lab Values WBC 3.3 10^3/uL (4.5-11.0) L 08/11/18 05:35 RBC 3.79 10^6/uL (3.5-6.1) 08/11/18 05:35 Hgb 8.7 g/dL (12.0-16.0) L 08/11/18 05:35 Hct 28.9 % (36.0-48.0) L 08/11/18 05:35 MCV 76.3 fl (80.0-105.0) L 08/11/18 05:35 MCH 23.0 pg (25.0-35.0) L 08/11/18 05:35 MCHC 30.1 g/dl (31.0-37.0) L 08/11/18 05:35 RDW 16.3 % (11.5-14.5) H 08/11/18 05:35 Plt Count 294 10^3/uL (120.0-450.0) 08/11/18 05:35 MPV 8.1 fl (7.0-11.0) 08/11/18 05:35 Gran % 41.4 % (50.0-68.0) L 08/10/18 16:52 Lymph % (Auto) 48.6 % (22.0-35.0) H 08/10/18 16:52 [place] % (Auto) 7.5 % (1.0-6.0) H 08/10/18 16:52 Eos % (Auto) 2.2 % (1.5-5.0) 08/10/18 16:52 Baso % (Auto) 0.3 % (0.0-3.0) 08/10/18 16:52 Gran # 1.49 (1.4-6.5) 08/10/18 16:52 Lymph # (Auto) 1.8 (1.2-3.4) 08/10/18 16:52 [place] # (Auto) 0.3 (0.1-0.6) 08/10/18 16:52 Eos # (Auto) 0.1 (0.0-0.7) 08/10/18 16:52 Baso # (Auto) 0.01 K/mm3 (0.0-2.0) 08/10/18 16:52 PT 12.2 SECONDS (9.4-12.5) 08/10/18 09:35 INR 1.06 08/10/18 09:35 APTT 29.5 Seconds (25.1-36.5) 08/10/18 09:35 Sodium 139 mmol/L (132-148) 08/11/18 05:35 Potassium 3.4 mmol/L (3.6-5.0) L 08/11/18 05:35 Chloride 111 mmol/L (98-107) H 08/11/18 05:35 Carbon Dioxide 24 mmol/L (21-33) 08/11/18 05:35 Anion Gap 8 (10-20) L 08/11/18 05:35 BUN 6 mg/dL (7-21) L 08/11/18 05:35 Creatinine 0.6 mg/dl (0.7-1.2) L 08/11/18 05:35 Est GFR ( Amer) > 60 08/11/18 05:35 Est GFR (Non-Af Amer) > 60 08/11/18 05:35 POC Glucose (mg/dL) 145 mg/dL (65-110) H 08/11/18 11:37 Random Glucose 97 mg/dL (70-110) 08/11/18 05:35 Hemoglobin A1c 6.3 % (4.2-6.5) 08/11/18 05:35 Calcium 8.3 mg/dL (8.4-10.5) L 08/11/18 05:35 Magnesium 1.8 mg/dL (1.7-2.2) 08/11/18 05:35 Iron 17 ug/dL (45-180) L 08/10/18 13:46 TIBC 403 ug/dL (265-497) 08/10/18 13:46 % Saturation 4 % (20-55) L 08/10/18 13:46 Ferritin 4.4 ng/mL 08/10/18 13:46 Total Bilirubin 0.5 mg/dL (0.2-1.3) 08/11/18 05:35 AST 17 U/L (14-36) 08/11/18 05:35 ALT 25 U/L (7-56) 08/11/18 05:35 Alkaline Phosphatase 55 U/L (38-126) 08/11/18 05:35 Lactate Dehydrogenase 479 U/L (333-699) 08/10/18 09:35 Total Creatine Kinase 185 U/L (35-230) 08/10/18 09:35 Troponin I < 0.01 ng/mL 08/11/18 02:00 Total Protein 6.0 g/dL (5.8-8.3) 08/11/18 05:35 Albumin 3.2 g/dL (3.0-4.8) 08/11/18 05:35 Globulin 2.9 gm/dL 08/11/18 05:35 Albumin/Globulin Ratio 1.1 (1.1-1.8) 08/11/18 05:35 Amylase 79 U/L (35-125) 08/10/18 09:35 Lipase 75 U/L (23-300) 08/10/18 09:35 Vitamin B12 180 pg/mL (239-931) L 08/10/18 13:46 Folate 5.4 ng/mL 08/10/18 13:46 Urine Color Dark yellow (YELLOW) 08/10/18 10:00 Urine Appearance Cloudy (CLEAR) 08/10/18 10:00 Urine pH 6.0 (4.7-8.0) 08/10/18 10:00 Ur Specific [place] >= 1.030 (1.005-1.035) 08/10/18 10:00 Urine Protein 100 mg/dL (<30 mg/dL) H 08/10/18 10:00 Urine Glucose (UA) Negative mg/dL (NEGATIVE) 08/10/18 10:00 Urine Ketones Negative mg/dL (NEGATIVE) 08/10/18 10:00 Urine Blood Large (NEGATIVE) H 08/10/18 10:00 Urine Nitrate Positive (NEGATIVE) H 08/10/18 10:00 Urine Bilirubin Small (NEGATIVE) H 08/10/18 10:00 Urine Urobilinogen 1.0 E.U./dL (<1 E.U./dL) H 08/10/18 10:00 Ur Leukocyte Esterase Moderate Jody/uL (NEGATIVE) H 08/10/18 10:00 Urine RBC Tntc /hpf (0-2) H 08/10/18 10:00 Urine WBC 20 - 25 /hpf (0-6) H 08/10/18 10:00 Ur Epithelial Cells 10 - 12 /hpf (0-5) H 08/10/18 10:00 Urine Bacteria Many /hpf (NONE) 08/10/18 10:00 Blood Type O POSITIVE 08/10/18 09:35 Antibody Screen Negative 08/10/18 09:35 Crossmatch See Detail 08/10/18 09:35 BBK History Checked Patient has bt 08/10/18 09:35 Attending/Attestation - Attestation I have personally seen and examined this patient.: Yes I have fully participated in the care of the patient.: Yes I have reviewed all pertinent clinical information, including history, physical exam and plan: Yes Notes (Text): 08/11/18 16:21 Attending note; Patient seen and examined with resident. Patient is alert and awake. Abdominal pain resolved. Tolerating diet. Denies any diarrhea/kain. Patient has some vaginal bleeding. Denies any urinary symptoms. Patient is a 42 year old female with a PMH of HTN, DM, GERD, hiatal hernia, esophageal ulcer, and Gastric sleeve who presents to the ED complaining of dizziness, abdominal pain, palpitations, and nausea which started yesterday. Patient also complaining of generalized weakness. 1. Anemia; currently no active bleeding. Status post 1 unit of PRBC transfusion. 1 dose of IV iron given. Hemoglobin is 8.7. Continue po Protonix. GI evaluation appreciated. Advised to follow-up with primary GI . 2. Vaginal bleeding; patient recently completed her regular menses. Patient follows up with [facility] Dr. Murry. Transvaginal ultrasound showed polyposis fibroids. Case discussed with [facility] in detail. Advised to follow-up with primary [facility]. No need for hormonal therapy now. 3. Smoking; smoking cessation is strongly advised. Patient will be discharged home with close follow-up with primary GI and [facility] upon discharge patient will follow-up with PMD Dr. Bar. 08/11/18 12:38
[2018-08-11 15:16] VITALS: BP 117/70; PULSE 68; RESP 18; TEMP 98.6
== END 2018-08-11 18:25 | disposition home or self-care (01) ==
LOC: ED 08:46 → ERH 11:32 → 5RNO 14:27
PROVIDERS: ADMIT Internal Medicine; ATTEND Internal Medicine
DX: K92.0 Hematemesis (principal); K21.0 Gastro-esophageal reflux disease with esophagitis; D64.9 Anemia, unspecified; D25.9 Leiomyoma of uterus, unspecified; E11.9 Type 2 diabetes mellitus without complications; K29.70 Gastritis, unspecified, without bleeding; B96.81 Helicobacter pylori [H. pylori] as the cause of diseases classified elsewhere; E66.9 Obesity, unspecified; I10 Essential (primary) hypertension; G47.30 Sleep apnea, unspecified; J45.909 Unspecified asthma, uncomplicated; K44.9 Diaphragmatic hernia without obstruction or gangrene; K64.8 Other hemorrhoids; K57.90 Diverticulosis of intestine, part unspecified, without perforation or abscess without bleeding; Z98.84 Bariatric surgery status
CPT/HCPCS: 36415; 36430; 74176; 76830; 80053; 81001; 81025; 82150; 82550; 82607; 82728; 82746; 82948; 83036; 83540; 83550; 83615; 83690; 83735; 84484; 85025; 85027; 85610; 85730; 86850; 86900; 86920; 87086; 93005; 94640; 94760; 96361; 96365; 96366; 96367; 96375; 96376; 99284; C9113; G0378; J0696; J1200; J1756; J1885; J3480; J7030; J7040; J7042; P9016